=== PATIENT | female | born 1975 | race Caucasian/White ===

== ENCOUNTER 2020-06-01 13:35 | Emergency (ER) | payer BC, SELFPAY ==
[2020-06-01 14:42] VITALS: BP 142/83; PULSE 85; RESP 17; TEMP 37.3; O2SAT 95; BMI 46.3
[2020-06-01] MEDS: Lidocaine HCl 2%/Epi 1:100,000 20 ML VIAL INFILTRATI (15:36)
--- NOTE | 2020-06-01 16:28 | ED.SKABFB ---
HPI - Skin/Abscess/Foreign Bdy General Chief complaint: Skin/Abscess/Foreign Body <DUOGLAS Toscano - Last Filed: 06/01/20 16:46> Stated complaint: ABSCESS <DOUGLAS Toscano Last Filed: 06/01/20 16:46> Time Seen by Provider: 06/01/20 14:56 <DOUGLAS Toscano Last Filed: 06/01/20 16:46> Source: patient <DOUGLAS Toscano Last Filed: 06/01/20 16:46> Mode of arrival: ambulatory <DOUGLAS Toscano Last Filed: 06/01/20 16:46> History of Present Illness HPI narrative: 45-year-old female with a past medical history of ovarian cysts presenting to ED complaining of Bartholin's cyst to left labia x3 days. Reports noticed discomfort on , was seen at [facility] on Sunday night, prescribed Bactrim with little relief, reports continued drainage from area. Also reports swelling extending to buttock area. Reports low-grade temp a 100.4? the other night. Denies vaginal bleeding/discharge, abdominal pain, flank pain, chills <DOUGLAS Toscano - Last Filed: 06/01/20 16:46> MD complaint: abscess/boil <DOUGLAS Toscano Last Filed: 06/01/20 16:46> Onset (ago): day(s) <DOUGLAS Toscano - Last Filed: 06/01/20 16:46> Related Data Home medications: Home Medications Medication Instructions Recorded Confirmed buspirone 5 mg tablet 5 mg PO BID 04/24/20 04/24/20 ibuprofen 200 mg capsule 200 mg PO TID PRN cap 04/24/20 04/24/20 levonorgestrel 20 mcg/24 hours (6 INTRAUTERINE 04/24/20 04/24/20 yrs) 52 mg intrauterine device Previous Rx's Medication Instructions Recorded cephalexin [Keflex] 500 mg PO Q6H 7 Days #28 cap 06/01/20 <DOUGLAS Toscano Last Filed: 06/01/20 16:46> Allergies/Adverse reactions: Allergies Allergy/AdvReac Type Severity Reaction Status Date / Time No Known Allergies Allergy Verified 06/01/20 14:44 <DOUGLAS Toscano - Last Filed: 06/01/20 16:46> Review of Systems Review of Systems: Constitutional: No Weight loss, + Fever, No Chills Gastrointestinal: No Nausea, No Vomiting, No Diarrhea, No Constipation, No Abdominal pain Genitourinary: No Dysuria, No Flank Pain Musculoskeletal: No joint pain, No Myalgias, No Joint Swelling Skin: +Skin Lesions, No rash Neuro: No Weakness, No Numbness, No Paresthesias <DOUGLAS Toscano - Last Filed: 06/01/20 16:46> Yes all other systems are reviewed and are negative <DOUGLAS Toscano - Last Filed: 06/01/20 16:46> [facility] Past Medical History Attestation statement: The following information was validated with the patient. <DOUGLAS Toscano - Last Filed: 06/01/20 16:46> Medical History: Medical History (Updated 06/02/20 @ 00:21 by Dago Quezada) Cysts of both ovaries <DOUGLAS Toscano - Last Filed: 06/01/20 16:46> Family History Family History: Family History (Updated 04/24/20 @ 10:55 by Ruby Mckenzie [facility]) Father Diabetes CVD (cardiovascular disease) Stroke Mother No problems noted. Sister Anxiety Diabetes Maternal Uncle Hypertension <DOUGLAS Toscano - Last Filed: 06/01/20 16:46> Social History Social History: Social History Advance Directives: No Advance Directives Information Provided: No <DOUGLAS Toscano - Last Filed: 06/01/20 16:46> Physical Exam Vital Signs: Vital Signs: Last Vital Signs Temp 99.2 F 06/01/20 14:42 Pulse 85 06/01/20 14:42 Resp 17 06/01/20 14:42 BP 142/83 H 06/01/20 14:42 Pulse Ox 95 06/01/20 14:42 Body Mass Index 46.3 <DOUGLAS Toscano - Last Filed: 06/01/20 16:46> Vital Signs: Last Vital Signs Temp 99.2 F 06/01/20 14:42 Pulse 85 06/01/20 14:42 Resp 17 06/01/20 14:42 BP 142/83 H 06/01/20 14:42 Pulse Ox 95 06/01/20 14:42 Body Mass Index 46.3 <Miguel Ángel Rader MD - Last Filed: 06/04/20 02:40> Const: General: cooperative and healthy appearing <DOUGLAS Toscano - Last Filed: 06/01/20 16:46> Orientation/consciousness: patient oriented x3 <Lisbeth Xiong PA - Last Filed: 06/01/20 16:46> Limitations: no limitations <DOUGLAS Toscano - Last Filed: 06/01/20 16:46> HENMT: Head: Yes normal to inspection <DOUGLAS Toscano - Last Filed: 06/01/20 16:46> Ears: hearing grossly normal bilaterally <DOUGLAS Toscano - Last Filed: 06/01/20 16:46> General nose exam: Normal external nose present <DOUGLAS Toscano - Last Filed: 06/01/20 16:46> Face and sinus: Yes normal facial exam <DOUGLAS Toscano - Last Filed: 06/01/20 16:46> Eyes: General: appearance normal, both eyes and all related structures <DOUGLAS Toscano - Last Filed: 06/01/20 16:46> EOM: EOMs intact bilaterally <DOUGLAS Toscano - Last Filed: 06/01/20 16:46> Neck: Neck: Yes normal visual inspection <DOUGLAS Toscano - Last Filed: 06/01/20 16:46> Resp: Effort & Inspection: normal respiratory effort <DOUGLAS Toscano - Last Filed: 06/01/20 16:46> GI: Inspection: Yes normal to inspection <DOUGLAS Toscano - Last Filed: 06/01/20 16:46> : Other: + open/draining Bartholin cyst noted to left labia with mild surrounding cellulitis extending to left buttock/perineum. + indurated and fluctuant <DOUGLAS Toscano - Last Filed: 06/01/20 16:46> Skin: Rashes: no rashes <DOUGLAS Toscano - Last Filed: 06/01/20 16:46> Wounds: no wounds <DOUGLAS Toscano - Last Filed: 06/01/20 16:46> Neuro: General: patient oriented x3 <DOUGLAS Toscano - Last Filed: 06/01/20 16:46> Gait exam (Neuro): Normal gait present <DOUGLAS Toscano - Last Filed: 06/01/20 16:46> Extrem: General: Yes normal to inspection <DOUGLAS Toscano - Last Filed: 06/01/20 16:46> Course Course Course Narrative: --abscess I&D performed, Word catheter placed <DOUGLAS Toscano - Last Filed: 06/01/20 16:46> I have discussed the case and management with the GERMAINE <Miguel Ángel Rader MD - Last Filed: 06/04/20 02:40> Procedures Abscess I/D Site: bartholin's gland <DOUGLAS Toscano - Last Filed: 06/01/20 16:46> Side (if applicable): left <DOUGLAS Toscano - Last Filed: 06/01/20 16:46> Local Anesthetic: lidocaine 1% and with epi <DOUGLAS Toscano - Last Filed: 06/01/20 16:46> Amount of anesthesia used (mL): 1 <DOUGLAS Toscano - Last Filed: 06/01/20 16:46> Technique: other (Forceps used to open abscess brown) <DOUGLAS Toscano - Last Filed: 06/01/20 16:46> Sent for culture/gram staining?: No <DOUGLAS Toscano - Last Filed: 06/01/20 16:46> Irrigation: No <DOUGLAS Toscano - Last Filed: 06/01/20 16:46> Packing used?: Word catheter <DOUGLAS Toscano - Last Filed: 06/01/20 16:46> MDM - Skin/Abscess/Foreign Bdy MDM Narrative Medical decision making narrative: On exam low-grade temp 99.2?, Bartholin noted to be actively draining, need I&D. Patient only taken 2 days of Bactrim, will add Keflex regiment, insert Word catheter and have her follow-up with OBGYN <DOUGLAS Toscano - Last Filed: 06/01/20 16:46> Discharge Plan Discharge Clinical Impression: Abscess of Bartholin's gland <DOUGLAS Toscano - Last Filed: 06/01/20 16:46> Patient Disposition: Home, Self-Care <DOUGLAS Toscano - Last Filed: 06/01/20 16:46> Instructions: Bartholin Cyst (ED) <DOUGLAS Toscano - Last Filed: 06/01/20 16:46> Additional Instructions: Your abscess was drained today in the ED, a Word catheter was placed. Keep the catheter in place for 7-10 days until you see your OBGYN Continue taking previously prescribed antibiotic In addition start taking Keflex Keep area dry and clean If area begins to grow, drain pus, you have fever return to the ED <DOUGLAS Toscano - Last Filed: 06/01/20 16:46> Prescriptions: New cephalexin [Keflex] 500 mg capsule 500 mg PO Q6H 7 Days Qty: 28 RF: 0 No Action buspirone 5 mg tablet 5 mg PO BID RF: 0 Mirena 20 mcg/24 hours (5 yrs) 52 mg intrauterine device intrauterine RF: 0 ibuprofen 200 mg capsule 200 mg PO TID PRNRF: 0 <DOUGLAS Toscano - Last Filed: 06/01/20 16:46> Referrals: Ninoska Mohan MD [Physician] - 10 days (For Word catheter removal) <DOUGLAS Toscano - Last Filed: 06/01/20 16:46> Stand Alone Forms: Work/School Release <DOUGLAS Toscano - Last Filed: 06/01/20 16:46> Interventions: ED Discharge Assessment Last Done: 06/01/20 17:09 <DOUGLAS Toscano - Last Filed: 06/01/20 16:46> Discharge Date/Time: 06/01/20 17:10 <DOUGLAS Toscano - Last Filed: 06/01/20 16:46>
== END 2020-06-01 17:10 | disposition home or self-care (01) ==
PROVIDERS: Emergency Provider Emergency Medicine; PCP Internal Medicine
DX: N75.1 Abscess of Bartholin's gland (principal); Z79.899 Other long term (current) drug therapy
CPT/HCPCS: 56420; 99283; 99284

== ENCOUNTER 2020-07-29 10:59 | Outpatient (REF) | payer BC, SELFPAY ==
--- NOTE | 2020-07-29 17:27 | PFT_ITS ---
FLOWS: FEV1 114% of predicted at 3.33 L. FVC 101% of predicted at 3.69 L. FEV1 to FVC ratio of 0.90. No bronchodilator response. LUNG VOLUMES: Total lung capacity 101% of predicted at 5.10 L. Residual volume 85% of predicted at 1.44 L. Slow vital capacity 108% of predicted at 3.66 L. Expiratory reserve volume 27% of predicted at 0.31 L. Diffusion capacity is normal. IMPRESSION: No obstructive or restrictive ventilatory defect. No bronchodilator response. Decreased expiratory reserve volume suggests extrathoracic restriction likely secondary to abdominal obesity. Pasha Edgar MD AP/MODL / [id number]
== END 2020-07-29 11:00 | disposition home or self-care (01) ==
LOC: HO.RESP 10:59
PROVIDERS: PCP Internal Medicine; Visit Provider Internal Medicine
DX: G47.33 Obstructive sleep apnea (adult) (pediatric) (principal); R53.83 Other fatigue; R53.81 Other malaise; Z99.89 Dependence on other enabling machines and devices; Z86.19 Personal history of other infectious and parasitic diseases
CPT/HCPCS: 94060; 94727; 94729

== ENCOUNTER 2020-08-05 08:24 | Outpatient (REF) | payer BC, SELFPAY ==
[2020-08-05 11:12] LABS: MANUAL DIFF FLAG NO
[2020-08-05 11:21] LABS: Basophils Absolute Auto 0.1 X10*3/uL (0.0-0.2); Basophils Percent Auto 1.5 % (0-2); Eosinophils Absolute Auto 0.1 X10*3/uL (0.0-0.4); Eosinophils Percent Auto 2.3 % (0-4); Hematocrit 41.1 % (37-47); Hemoglobin 12.9 g/dl (12.0-16.0); Imm Gran Abs Auto 0.02 X10*3/uL (0.00-0.03); Imm Gran Pct Auto 0.4 % (0.0-0.4); Lymphocytes Absolute Auto 2.1 X10*3/uL (1.2-4.9); Lymphocytes Percent Auto 39.7 % (20-40); Mean Corpuscular HGB Conc 31.4 g/dl (31.0-35.0); Mean Corpuscular Hemoglobin 28.7 pg (27.0-33.0); Mean Corpuscular Volume 91.3 fL (80-98); Mean Platelet Volume 9.4 fL (9.4-12.3); Monocytes Absolute Auto 0.5 X10*3/uL (0.1-1.2); Monocytes Percent Auto 9.8 % (2-11); Neutrophils Absolute Auto 2.4 X10*3/uL (2.0-8.3); Neutrophils Percent Auto 46.3 % (45-73); Platelet Count 327 X10*3/uL (160-400); Red Cell Distribution Width 13.5 % (11.0-16.0); White Blood Count 5.2 X10*3/uL (4.8-10.8)
[2020-08-05 11:45] LABS: Alanine Aminotransferase 23 U/L (0-31); Albumin Level 4.1 g/dL (3.5-5.0); Alkaline Phosphatase 53 U/L (39-117); Anion Gap 10 (12-20); Aspartate Amino Transferase 19 U/L (5-31); Bilirubin Total 0.5 mg/dL (0.0-1.0); Blood Urea Nitrogen 17 mg/dL (9-16); Carbon Dioxide 30 mmol/L (22-29); Chloride 104 mmol/L (96-108); Estimated Glomerular Filt Rate > 60; Glucose Fasting 110 mg/dL (60-99); Potassium 4.3 mmol/l (3.3-5.1); Sodium 140 mmol/L (135-145); Total Protein 7.5 g/dL (6.5-8.0)
[2020-08-05 12:07] LABS: TSH reflex Free T4 0.95 mIU/mL (0.32-4.0); Vitamin D 25-OH Total 17.1 ng/mL (>30)
[2020-08-05 12:10] LABS: Erythrocyte Sedimentation Rate 22 MM/HR (0-20)
== END 2020-08-05 08:25 | disposition home or self-care (01) ==
LOC: HO.HMGCLDS 08:24
PROVIDERS: PCP Internal Medicine; Visit Provider Internal Medicine
DX: G47.33 Obstructive sleep apnea (adult) (pediatric) (principal); R53.81 Other malaise; Z99.89 Dependence on other enabling machines and devices; R06.81 Apnea, not elsewhere classified; R53.83 Other fatigue; Z86.19 Personal history of other infectious and parasitic diseases
CPT/HCPCS: 36415; 80053; 82306; 84443; 85025; 85652

== ENCOUNTER → 2020-11-02 10:10 | Outpatient (BNVA) | payer BC, SELFPAY | PROVIDERS: PCP Internal Medicine; Visit Provider Nurse Practitioner Family ==

== ENCOUNTER 2020-11-15 11:29 | Outpatient (REF) | payer BC, SELFPAY ==
--- NOTE | ~2020-11-15 | US_ITS ---
EXAMINATION: US VENOUS ULTRASOUND WITH DOPPLER LOWER EXTREMITY, LEFT CLINICAL INFORMATION: Pain lower extremity in region of knee/popliteal fossa. Assess for occult DVT. COMPARISON: None TECHNIQUE: Ultrasound of the deep veins is performed from the hip to the calf with compression sonography and color and pulse Doppler assessment. Spectral analysis with color-flow imaging is performed. FINDINGS: There is normal venous compression and respiratory variation and augmented flow. The visualized common femoral vein, superficial femoral vein, profunda femoral vein, popliteal vein, and the trifurcation region shows no evidence of deep venous thrombosis. No visible popliteal fossa cyst. No prepatellar bursal fluid. US/US venous duplex LE LT IMPRESSION: 1. No DVT demonstrated in the left lower extremity. 2. No visible popliteal fossa cyst.
== END 2020-11-15 11:30 | disposition home or self-care (01) ==
LOC: HO.HMGCX 11:29
PROVIDERS: PCP Internal Medicine; Visit Provider Internal Medicine
DX: I83.812 Varicose veins of left lower extremity with pain (principal); M79.606 Pain in leg, unspecified; M25.562 Pain in left knee
CPT/HCPCS: 93971

== ENCOUNTER 2021-01-03 14:10 | Outpatient (REF) | payer BC, SELFPAY ==
--- NOTE | ~2021-01-03 | MM_ITS ---
EXAMINATION: MM SCREENING DIGITAL BREAST TOMOSYNTHESIS, BILATERAL CLINICAL INFORMATION: Screening. Asymptomatic. The lifetime risk of breast cancer based on the Tyrer-Cuzick Model is 19%. COMPARISON: Outside mammography: 01/12/2017 ([facility]). TECHNIQUE: Digital breast tomosynthesis is performed in both the craniocaudal and mediolateral oblique views along with computer-aided detection (CAD). Synthesized 2D images are generated from the tomosynthesis. Additional left CC view is provided. FINDINGS: The breasts are almost entirely fatty (ACR BI-RADS breast composition Category a). Background stromal markings are similar to previous exam. There is no interval mass or architectural abnormality or abnormal calcifications. The axilla and skin contours are unremarkable. No significant changes. MM/MM tomosynthesis screening BI IMPRESSION: No mammographic evidence of malignancy. ASSESSMENT: BI-RADS 1: Negative RECOMMENDATION: Routine annual mammography screening. This patient's information was entered into a reminder system with a target due date for their next mammogram.
== END 2021-01-03 14:11 | disposition home or self-care (01) ==
LOC: HO.MAMMO 14:10
PROVIDERS: Visit Provider Internal Medicine
DX: Z12.31 Encounter for screening mammogram for malignant neoplasm of breast (principal)
CPT/HCPCS: 77063; 77067

== ENCOUNTER → 2021-01-18 10:20 | Outpatient (BNVA) | payer BC, SELFPAY | PROVIDERS: PCP Internal Medicine; Visit Provider Nurse Practitioner Family ==

== ENCOUNTER 2021-02-10 08:35 | Outpatient (REF) | payer BC, SELFPAY ==
--- NOTE | ~2021-02-10 | XR_ITS ---
EXAMINATION: XR KNEE, LEFT CLINICAL INFORMATION: Left knee pain COMPARISON: None TECHNIQUE: Four views of the left knee. FINDINGS: There is no evidence of acute fracture or dislocation of the left knee. No left knee effusion. There is significant narrowing of the medial joint space compartment with spurring seen within all compartments. Prominent spurring of the patellofemoral joint is present. XR/XR knee LT 4V IMPRESSION: Significant degenerative change of the medial joint space compartment and patellofemoral joint. No acute fracture or effusion.
--- NOTE | ~2021-02-10 | US_ITS ---
EXAMINATION: US ABDOMEN COMPLETE CLINICAL INFORMATION: Right upper quadrant pain. COMPARISON: None TECHNIQUE: Real-time imaging of the abdominal viscera. Technically difficult study secondary to body habitus. FINDINGS: PANCREAS: The head and body appear unremarkable without abnormal mass or peripancreatic inflammatory change. The tail was not visualized due to overlying bowel gas. ABDOMINAL AORTA: The proximal, mid, and distal segments are normal in caliber. INFERIOR VENA CAVA: Visualized portions are normal. LIVER: There is limited visualization due to large body habitus. There appears to be some increased echogenicity diffusely consistent with fatty infiltration. The liver contour is normal. No focal hepatic lesion. There is no intrahepatic biliary duct dilatation seen. GALLBLADDER: Within the fundus there is a region of echogenicity with some associated comet tail artifact consistent with adenomyomatosis. The gallbladder is physiologically distended without evidence of stones, sludge, wall thickening or pericholecystic fluid. COMMON BILE DUCT: Normal in caliber measuring 0.4 cm in diameter. RIGHT KIDNEY: Normal. No hydronephrosis. No renal calculi or focal parenchymal lesions. The kidney measures 11.8 cm in maximum dimension. LEFT KIDNEY: Normal. No hydronephrosis. No renal calculi or focal parenchymal lesions. The kidney measures 12.8 cm in maximum dimension. SPLEEN: Normal. The spleen measures 11.1 cm in maximum dimension. FREE FLUID: None. US/US abdomen complete IMPRESSION: Somewhat limited study due to large body habitus. Fatty infiltration of the liver. Focal adenomyomatosis.
[2021-02-10 11:52] LABS: Anion Gap 11 (12-20); Carbon Dioxide 26 mmol/L (22-29); Chloride 107 mmol/L (96-108); Glucose Fasting 103 mg/dL (60-99); Magnesium 2.2 mg/dL (1.6-2.6); Potassium 4.6 mmol/L (3.3-5.1); Sodium 139 mmol/L (135-145)
[2021-02-10 12:02] LABS: Estimated Average Glucose 117 mg/dL; Hemoglobin A1c % 5.7 %
[2021-02-10 12:10] LABS: Vitamin D 25-OH Total 28.9 ng/mL (>30)
[2021-02-11 12:11] LABS: Lyme Abs Screen <0.90 index
== END 2021-02-10 08:36 | disposition home or self-care (01) ==
LOC: HO.HMGCX 08:35
PROVIDERS: PCP Internal Medicine; Referring Provider Nurse Practitioner Family; Visit Provider Internal Medicine
DX: R10.11 Right upper quadrant pain (principal); E55.9 Vitamin D deficiency, unspecified; R25.2 Cramp and spasm; R53.81 Other malaise; R53.83 Other fatigue; R73.01 Impaired fasting glucose
CPT/HCPCS: 36415; 73564; 76700; 80051; 82306; 82947; 83036; 83735; 86617; 86618

== ENCOUNTER → 2021-02-21 09:56 | Outpatient (BNVA) | payer BC, SELFPAY | PROVIDERS: PCP Internal Medicine; Visit Provider Physician Assistant | DX: M17.12 Unilateral primary osteoarthritis, left knee (principal) | CPT/HCPCS: 20610; J1040 ==

== ENCOUNTER → 2021-04-19 08:09 | Outpatient (BNVA) | payer BC, SELFPAY | PROVIDERS: PCP Internal Medicine; Visit Provider Nurse Practitioner Family ==

== ENCOUNTER 2021-08-25 08:47 | Outpatient (REF) | payer BC, SELFPAY ==
--- NOTE | ~2021-08-25 | XR_ITS ---
EXAMINATION: XR CHEST CLINICAL INFORMATION: Apnea. COMPARISON: None TECHNIQUE: 2 views of the chest were obtained. FINDINGS: No significant abnormality is noted involving the heart, lungs, mediastinum, bony thorax or soft tissues. XR/XR chest 2V IMPRESSION: Unremarkable chest examination.
== END 2021-08-25 08:48 | disposition home or self-care (01) ==
LOC: HO.HMGCX 08:47
PROVIDERS: PCP Internal Medicine; Visit Provider Internal Medicine
DX: R06.81 Apnea, not elsewhere classified (principal)
CPT/HCPCS: 71046

== ENCOUNTER 2022-01-05 07:11 | Outpatient (REF) | payer BC, SELFPAY ==
--- NOTE | ~2022-01-05 | XR_ITS ---
EXAMINATION: XR KNEES, STANDING AP XR KNEE, RIGHT XR KNEE, LEFT CLINICAL INFORMATION: Knee pain COMPARISON: Radiographs left knee 02/10/2021 TECHNIQUE: Standing AP view of both knees is performed. Each knee is also imaged in lateral view and axial patella view. FINDINGS: Right: Normal bony mineralization. No fracture, dislocation, or joint effusion. No destructive process. Hoffa's fat pad appears normal. Mild narrowing medial compartment with small marginal osteophytes medial femoral condyle and medial tibial plateau. No erosive change or chondrocalcinosis. Mild degenerative changes lateral patellofemoral joint with borderline lateral tilting. No lateralization patella. Left: Normal bony mineralization. No fracture, dislocation, destructive process, or joint effusion. Hoffa's fat pad appears normal. Prominent osteoarthritic changes medial knee joint compartment with prominent joint narrowing and moderate osteophytes from the medial femoral condyle and medial lateral tibial plateau. Mild secondary genu varus. No visible erosive change or chondrocalcinosis. Probable mild degenerative change lateral patellofemoral joint with mild lateral tilting. No lateralization patella. XR/XR knee RT 2V IMPRESSION: Right: -Mild narrowing medial knee joint compartment. -No effusion. Left: -Prominent osteoarthritic changes medial compartment with secondary genu varus. -No effusion.
--- NOTE | ~2022-01-05 | XR_ITS ---
EXAMINATION: XR KNEES, STANDING AP XR KNEE, RIGHT XR KNEE, LEFT CLINICAL INFORMATION: Knee pain COMPARISON: Radiographs left knee 02/10/2021 TECHNIQUE: Standing AP view of both knees is performed. Each knee is also imaged in lateral view and axial patella view. FINDINGS: Right: Normal bony mineralization. No fracture, dislocation, or joint effusion. No destructive process. Hoffa's fat pad appears normal. Mild narrowing medial compartment with small marginal osteophytes medial femoral condyle and medial tibial plateau. No erosive change or chondrocalcinosis. Mild degenerative changes lateral patellofemoral joint with borderline lateral tilting. No lateralization patella. Left: Normal bony mineralization. No fracture, dislocation, destructive process, or joint effusion. Hoffa's fat pad appears normal. Prominent osteoarthritic changes medial knee joint compartment with prominent joint narrowing and moderate osteophytes from the medial femoral condyle and medial lateral tibial plateau. Mild secondary genu varus. No visible erosive change or chondrocalcinosis. Probable mild degenerative change lateral patellofemoral joint with mild lateral tilting. No lateralization patella. XR/XR knee LT 2V IMPRESSION: Right: -Mild narrowing medial knee joint compartment. -No effusion. Left: -Prominent osteoarthritic changes medial compartment with secondary genu varus. -No effusion.
--- NOTE | ~2022-01-05 | XR_ITS ---
EXAMINATION: XR KNEES, STANDING AP XR KNEE, RIGHT XR KNEE, LEFT CLINICAL INFORMATION: Knee pain COMPARISON: Radiographs left knee 02/10/2021 TECHNIQUE: Standing AP view of both knees is performed. Each knee is also imaged in lateral view and axial patella view. FINDINGS: Right: Normal bony mineralization. No fracture, dislocation, or joint effusion. No destructive process. Hoffa's fat pad appears normal. Mild narrowing medial compartment with small marginal osteophytes medial femoral condyle and medial tibial plateau. No erosive change or chondrocalcinosis. Mild degenerative changes lateral patellofemoral joint with borderline lateral tilting. No lateralization patella. Left: Normal bony mineralization. No fracture, dislocation, destructive process, or joint effusion. Hoffa's fat pad appears normal. Prominent osteoarthritic changes medial knee joint compartment with prominent joint narrowing and moderate osteophytes from the medial femoral condyle and medial lateral tibial plateau. Mild secondary genu varus. No visible erosive change or chondrocalcinosis. Probable mild degenerative change lateral patellofemoral joint with mild lateral tilting. No lateralization patella. XR/XR knee standing BI IMPRESSION: Right: -Mild narrowing medial knee joint compartment. -No effusion. Left: -Prominent osteoarthritic changes medial compartment with secondary genu varus. -No effusion.
== END 2022-01-05 07:12 | disposition home or self-care (01) ==
LOC: HO.HOSX 07:11
PROVIDERS: Visit Provider Physician Assistant
DX: M17.0 Bilateral primary osteoarthritis of knee (principal)
CPT/HCPCS: 20610; 73560; 73565; J1040

== ENCOUNTER 2022-01-09 15:31 | Outpatient (REF) | payer BC, SELFPAY ==
[2022-01-09 15:43] LABS: MANUAL DIFF FLAG NO
[2022-01-09 16:33] LABS: Basophils Absolute Auto 0.1 X10*3/uL (0.0-0.2); Basophils Percent Auto 0.9 % (0-2); Eosinophils Absolute Auto 0.1 X10*3/uL (0.0-0.4); Eosinophils Percent Auto 0.4 % (0-4); Hematocrit 43.8 % (37.0-47.0); Hemoglobin 14.3 g/dl (12.0-16.0); Imm Gran Abs Auto 0.05 X10*3/uL (0.00-0.03); Imm Gran Pct Auto 0.4 % (0.0-0.4); Lymphocytes Absolute Auto 2.8 X10*3/uL (1.2-4.9); Lymphocytes Percent Auto 24.2 % (20-40); Mean Corpuscular HGB Conc 32.6 g/dl (31.0-35.0); Mean Corpuscular Hemoglobin 28.8 pg (27.0-33.0); Mean Corpuscular Volume 88.3 fL (80.0-98.0); Mean Platelet Volume 9.2 fL (9.4-12.3); Monocytes Absolute Auto 0.8 X10*3/uL (0.1-1.2); Monocytes Percent Auto 7.2 % (2-11); Neutrophils Absolute Auto 7.7 x10*3/uL (2.0-8.3); Neutrophils Percent Auto 66.9 % (45-73); Platelet Count 388 X10*3/uL (160-400); Red Blood Count 4.96 X10*6/uL (4.20-5.50); Red Cell Distribution Width 13.4 % (11.0-16.0); White Blood Count 11.4 X10*3/uL (4.8-10.8)
[2022-01-09 16:59] LABS: Alanine Aminotransferase 18 U/L (0-31); Albumin Level 4.5 g/dL (3.5-5.0); Alkaline Phosphatase 80 U/L (39-117); Anion Gap 14 (12-20); Aspartate Amino Transferase 16 U/L (5-31); Bilirubin Total 0.4 mg/dL (0.0-1.0); Blood Urea Nitrogen 7 mg/dL (9-16); Calcium 9.6 mg/dL (8.4-10.2); Carbon Dioxide 28 mmol/L (22-29); Chloride 100 mmol/L (96-108); Cholesterol 182 mg/dL; Estimated Glomerular Filt Rate > 60; Glucose Fasting 98 mg/dL (60-99); HDL Cholesterol 53 mg/dL; LDL Cholesterol Calculated 106 mg/dl; Potassium 4.4 mmol/L (3.3-5.1); Sodium 138 mmol/L (135-145); Triglycerides 119 mg/dL
[2022-01-09 17:23] LABS: Vitamin D 25-OH Total 21.1 ng/mL (>30)
== END 2022-01-09 15:32 | disposition home or self-care (01) ==
LOC: HO.LAB 15:31
PROVIDERS: PCP Internal Medicine; Visit Provider Surgery
DX: Z00.01 Encounter for general adult medical examination with abnormal findings (principal); E55.9 Vitamin D deficiency, unspecified; R73.01 Impaired fasting glucose; E66.01 Morbid (severe) obesity due to excess calories; Z68.42 Body mass index [BMI] 45.0-49.9, adult; R10.9 Unspecified abdominal pain; D13.5 Benign neoplasm of extrahepatic bile ducts
CPT/HCPCS: 36415; 80048; 80053; 80061; 82306; 85025

== ENCOUNTER 2022-03-01 06:50 | Outpatient (REF) | payer BC, SELFPAY ==
[2022-03-01 12:03] LABS: ~Hepatitis B Surface Antibody NONREACTIVE (Nonreactive)
[2022-03-02 13:26] LABS: Rubella IgG Antibody 2.74 Index
[2022-03-06 12:46] LABS: TS Negative Control Passed; TS Panel A 0; TS Panel B 1; TS Positive Control Passed; TSpotTB Negative (Negative)
== END 2022-03-01 06:51 | disposition home or self-care (01) ==
LOC: HO.HMGCLDS 06:50
PROVIDERS: PCP Internal Medicine; Visit Provider Internal Medicine
DX: Z01.84 Encounter for antibody response examination (principal); Z11.1 Encounter for screening for respiratory tuberculosis
CPT/HCPCS: 36415; 86481; 86706; 86735; 86762; 86765; 86787

== ENCOUNTER → 2022-09-22 09:43 | Outpatient (BNVA) | payer OTHER, SELFPAY | PROVIDERS: PCP Internal Medicine; Visit Provider Physician Assistant | DX: M17.12 Unilateral primary osteoarthritis, left knee (principal) | CPT/HCPCS: 20610; J1040 ==

== ENCOUNTER 2022-11-30 09:30 | Outpatient (REF) | payer OTHER, SELFPAY ==
--- NOTE | ~2022-11-30 | MM_ITS ---
EXAMINATION: MM SCREENING DIGITAL BREAST TOMOSYNTHESIS, BILATERAL CLINICAL INFORMATION: Screening. Asymptomatic. The lifetime risk of breast cancer based on the Tyrer-Cuzick Model is 18%. COMPARISON: Mammography: 01/03/2021; outside mammography 01/12/2017 ([facility]). TECHNIQUE: Digital breast tomosynthesis is performed in both the craniocaudal and mediolateral oblique views along with computer-aided detection (CAD). Synthesized 2D images are generated from the tomosynthesis. Additional bilateral MLO views and right cleavage view are provided. FINDINGS: The breasts are almost entirely fatty (ACR BI-RADS breast composition Category a). There are no significant masses, abnormal calcifications, or other abnormalities. Background stromal markings are normal and there is no developing density or architectural abnormality. The axilla are unremarkable. No significant changes from prior studies. MM/MM tomosynthesis screening BI IMPRESSION: No mammographic evidence of malignancy. ASSESSMENT: BI-RADS 1: Negative RECOMMENDATION: Routine annual mammography screening. This patient's information was entered into a reminder system with a target due date for their next mammogram.
== END 2022-11-30 09:31 | disposition home or self-care (01) ==
LOC: HO.MAMMO 09:30
PROVIDERS: PCP Internal Medicine; Visit Provider Internal Medicine
DX: Z12.31 Encounter for screening mammogram for malignant neoplasm of breast (principal)
CPT/HCPCS: 77063; 77067

== ENCOUNTER 2023-11-28 11:09 | Outpatient (AMB) | payer OTHER, SELFPAY ==
[2023-11-28 11:34] VITALS: BP 130/72; PULSE 78; O2SAT 98; BMI 43.6
--- NOTE | 2023-11-28 11:34 | MHC.PC.OV ---
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 Accompanied by: Self / Same As Patient Allergies No Known Allergies Allergy (Verified 03/25/24 03:15) Medication List - Last Reconciled 11/28/23 by Carnia Beck MD diclofenac sodium 50 mg PO BID PRN levonorgestrel (Mirena) intrauterine Tobacco use date assessed: 11/28/23 Dental Screening Dental Screen Date: 11/28/23 Did you have a dental visit in the last 12 months?: Yes Did you have a dental problem in the last 6 months where you did not have access to dental care?: No Was dental information given to patient?: Patient has dentist HPI PE - see comments HPI Details 48-year-old lady with past medical history significant for obesity, pes planus,. Impaired Fasting glucose, obstructive sleep apnea, here today for physical exam. She has obstructive sleep apnea , currently on CPAP, requesting referral for follow-up. She is due for her screening mammogram this year, last done November 2022. She goes to [facility] for her routine Pap and pelvic exam, sees Dr. England who inserted her IUD in 2021 Due now for her colon cancer screening. Complains of recurrent pain across her lower back worse with bending or lifting anything heavy. Denies any urinary or stool incontinence, no numbness or tingling lower extremities, no weakness reported [facility], [facility] Medical History (Updated 03/03/24 @ 00:01 by Dago Quezada) Pes planus of both feet Adenomyomatosis of gallbladder Varicose veins of left lower extremity Impaired fasting glucose Vitamin D deficiency Obstructive sleep apnea treated with continuous positive airway pressure (CPAP) History of 2019 novel coronavirus disease (COVID-19) Cysts of both ovaries Surgical History No pertinent past surgical history Family History Father Diabetes CVD (cardiovascular disease) Stroke Mother Mental health disorder Sister Anxiety Diabetes Substance abuse Mental health disorder Maternal Uncle Hypertension Social History Housing: Apartment Alcohol intake: current Alcohol intake frequency: a few times a month Patient Tobacco Use Status: Never used Tobacco Tobacco use type: Cigarette Cigarettes Per Day: 1 Years Smoked: 0 e-Cigarette/Vaping Use: Never Used Current occupational status: employed 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 England at [facility]) Questionnaire PHQ-9 Over the last 2 weeks, how often have you been bothered by any of the following problems? 1. Little interest or pleasure in doing things: not at all 2. Feeling down, depressed, or hopeless: not at all 3. Trouble falling or staying asleep, or sleeping too much: not at all 4. Feeling tired or having little energy: not at all 5. Poor appetite or overeating: not at all 6. Feeling bad about yourself - or that you are a failure or have let yourself or your family down: not at all 7. Trouble concentrating on things, such as reading the newspaper or watching television: not at all 8. Moving or speaking so slowly that other people could have noticed. Or the opposite - being so fidgety or restless that you have been moving around a lot more than usual: not at all 9. Thoughts that you would be better off or of hurting yourself in some way: not at all Total score: 0 Depression Screening Interpretation: Negative Depression Screening Done: Yes 05262 - PHQ-9 Billing: Yes Source: Developed by Drs. Jarek Mclean, Cecile Caban, Usman Castillo and colleagues, with an educational marixa from [employer]. Thrive Questionnaire Date Thrive assessed: 11/28/23 I am a: Patient What is your living situation today?: I have a steady place to live Within the past 12 months, did the food you bought not last and you didn't have the money to get more?: Never true Within the past 12 months, did you worry whether your food would run out before you got money to buy more?: Never true Do you have trouble paying for medicines?: No Do you have trouble getting transportation to medical appointments?: No Do you have trouble paying your heating and electricity bill?: No Do you have trouble taking care of your child, family member or friend?: No Do you have trouble with day-to-day activities such as bathing, preparing meals, shopping, managing finances, etc.?: No Are you currently unemployed and looking for a job?: No Are you interested in more education?: No Please select the resources that you would like help with: None Currently or been in a relationship where the following occur: no concerns reported THRIVE Score: 0 AUDIT C Alcohol Use Questionnaire (AUDIT-C) 1. How often do you have a drink containing alcohol?: Monthly or less 2. How many drinks containing alcohol do you have on a typical day when you are drinking?: 1 or 2 3. How often do you have six or more drinks on one occasion?: Never Total Score: 1 Score Reviewed/Action Taken: Yes TAMIKA-7 AMB Questionnaire TAMIKA-7 Date TAMIKA - 7 assessed: 11/28/23 Feeling nervous, anxious, or on edge: 0 = Not at all Not being able to stop or control worryin = Not at all Worrying too much about different things: 0 = Not at all Trouble relaxin = Not at all Being so restless that it is hard to sit still: 0 = Not at all Becoming easily annoyed or irritable: 0 = Not at all Feeling afraid as if something awful might happen: 0 = Not at all Total TAMIKA-7 score (0-4 normal; 5-9 mild; 10-14 moderate; 15-21 severe): 0 Source: Developed by Drs. Jarek Mclean, Cecile Caban, Usman Castillo and colleagues, with an educational marixa from [employer]. TAMIKA-7 Assessment Billing TAMIKA-7 Assessment Tool: TAMIKA-7 Assessment 39039 Review of Systems Const Denies fatigue, Denies fever(s), Denies headache(s), Denies malaise and Denies poor appetite Eyes Reports no additional complaints ENT Denies dizziness, Denies headache(s), Denies nasal congestion, Denies nasal discharge, Denies post nasal drip, Denies sinus pressure and Denies sore throat Card Denies chest pain, Denies rapid heart rate and Denies irregular heart rhythm Resp Denies cough GI Reports no additional complaints Reports no additional complaints Musc Reports as per HPI, Reports arthralgias (Occasional knees) and Reports stiffness Skin/Breast Denies rash Neuro Reports no additional complaints, Denies dizziness and Denies headache(s) Psych Reports no additional complaints Endo Denies fatigue Elvis/Lymph Reports no additional complaints Aller/Immun Reports no additional complaints Physical exam (Primary Care) Vital Signs: Last Vital Signs Pulse 78 11/28/23 11:34 BP 130/72 11/28/23 11:34 Pulse Ox 98 11/28/23 11:34 Oxygen Delivery Method Room Air 11/28/23 11:34 BMI result Body Mass Index 43.6 Tobacco/Smoking Status: Tobacco use Status Tobacco use date assessed 11/28/23 11/28/23 11:39 Patient Tobacco Use Status Never used Tobacco 11/28/23 11:39 Tobacco use type Cigarette 11/28/23 11:39 e-Cigarette/Vaping Use Never Used 11/28/23 11:39 PHQ-9: PHQ-9 Score PHQ-9: Total score 0 11/28/23 11:51 Depression Screening Interpretation: Negative Thrive Assessment: Date of Thrive Assessment Date Thrive assessed 11/28/23 11/28/23 11:39 Currently or been in a relationship where the following occur: no concerns reported Const General: cooperative, comfortable, no acute distress, alert and Physically active Nutritional Appearance: obese morbidly obese Orientation/consciousness: patient oriented x3 HENMT Head: Yes normocephalic Ears: hearing grossly normal bilaterally, TM's normal bilaterally and EAC's normal General nose exam: Normal external nose present and No nasal discharge present Face and sinus: Yes face symmetric Mouth: Normal oral and palatal mucosa present, oropharynx normal and moist mucous membranes abnormal Eyes General: appearance normal, both eyes and all related structures Neck Other: Supple, no lymphadenopathy, thyroid gland nonpalpable Chest Breast/axilla palpation: normal palpation of the breasts and normal palpation of the axillae Resp Auscultation: clear to auscultation bilaterally Cardio Other: S1-S2 present regular rate and rhythm GI Other: Normal bowel sounds obese, soft, slight discomfort on palpation over right upper quadrant, with no rebound or guarding Back/Spine/Pelvis Thoracic/Lumbar Spine: straight leg raise negative bilaterally and paraspinal muscle tenderness bilaterally in the mid lumbar Skin General skin exam: no rashes or lesions noted Neuro General: patient oriented x3, gait normal, tone normal, moves all extremities, Normal light touch and pain sensation, no focal motor deficits, CN's II-XI intact bilaterally and normal sensation to monofilament Extrem Other: crepitus right knee, flat feet General: Yes no joint enlargement, Yes no pedal edema and Yes normal gait Psych Appearance: grossly normal Mental Status: mental status grossly normal Speech and movement: Normal speech and movement present Affect: normal affect Assessment and Plan Assessment & Plan (1) Annual visit for general adult medical examination with abnormal findings: Code(s): Z00.01 - Encounter for general adult medical examination with abnormal findings Plan: Will check appropriate labs. Recommended dental visit every 6 months and regular eye exams, at least every 2 years. Take adequate calcium in diet and vitamin-D 3 at 2000 IU per cap once a day, in addition to weight-bearing exercises to help maintain good muscle tone and weight control. Instructed to do self-breast exam, and recommended to get yearly mammogram, starting at age 40. Immunization information provided: Yearly flu vaccine, shingles vaccine starting at age 50, at age 65 to start getting Prevnar 13 followed 1 year later by Pneumovax 23. Colonoscopy (2) Low Back Pain: Code(s): M54.50 - Low back pain, unspecified Plan: X-ray lumbar spine ordered, prescription sent for diclofenac sodium 50 mg per tablet to take 1 tab twice a day only as needed for pain, take it always with food. To clinic if no improvement of symptoms (3) Encounter for screening for malignant neoplasm of colon: Code(s): Z12.11 - Encounter for screening for malignant neoplasm of colon Plan: Referred to GI Clinic for initial colonoscopy screening (4) Obstructive sleep apnea treated with continuous positive airway pressure (CPAP): Code(s): G47.33 - Obstructive sleep apnea (adult) (pediatric); Z99.89 - Dependence on other enabling machines and devices Plan: Referred for follow-up to [facility] [place] [facility] (5) Vitamin D deficiency: Code(s): E55.9 - Vitamin D deficiency, unspecified Plan: Will check vitamin-D level (6) Morbid obesity with BMI of 45.0-49.9, adult: Code(s): E66.01 - Morbid (severe) obesity due to excess calories; Z68.42 - Body mass index [BMI] 45.0-49.9, adult Plan: Your BMI is above the ideal range. I deal BMI is between 18.5- 24. Recommended Mediterranean diet, which is a healthy diet that helps limit food high in fat, sugar, and calories. Eat slowly, pay attention to portion sizes, plan your meals ahead of time, start regular physical activity, at least 150 minutes of moderate intensity exercise, or 90 minutes per week of vigorous exercise. Keeping a food diary, tracking what you eat and your physical activity can help assess what improvements you can make. There are many health problems associated with being overweight/obese, so it is important to improve your diet and exercise. There are medications and surgical options available, but Lifestyle changes are the 1st step. (7) Impaired fasting glucose: Code(s): R73.01 - Impaired fasting glucose Plan: Your previous fasting blood sugars were elevated above 100 mg/dL. Impaired glucose metabolism increases the risk for developing diabetes mellitus type 2, as well as heart attack and stroke later on. Lifestyle changes that promotes weight loss, healthy eating habits, and regular exercise are important, and can prevent the progression to diabetes Orders: Orders Vitamin D 25-OH Total 11/28/23 E66.01 - Morbid (severe) obesity due to excess calories, Z68.42 - Body mass index [BMI] 45.0-49.9, adult, E55.9 - Vitamin D deficiency, unspecified, G47.33 - Obstructive sleep apnea (adult) (pediatric), Z99.89 - Dependence on other enabling machines and devices, R73.01 - Impaired fasting glucose, Z00.01 - Encounter for general adult medical examination with abnormal findings Basic Metabolic Panel Fasting 11/28/23 E66.01 - Morbid (severe) obesity due to excess calories, Z68.42 - Body mass index [BMI] 45.0-49.9, adult, E55.9 - Vitamin D deficiency, unspecified, G47.33 - Obstructive sleep apnea (adult) (pediatric), Z99.89 - Dependence on other enabling machines and devices, R73.01 - Impaired fasting glucose, Z00.01 - Encounter for general adult medical examination with abnormal findings Aspartate Amino Transferase 11/28/23 E66.01 - Morbid (severe) obesity due to excess calories, Z68.42 - Body mass index [BMI] 45.0-49.9, adult, E55.9 - Vitamin D deficiency, unspecified, G47.33 - Obstructive sleep apnea (adult) (pediatric), Z99.89 - Dependence on other enabling machines and devices, R73.01 - Impaired fasting glucose, Z00.01 - Encounter for general adult medical examination with abnormal findings Alanine Aminotransferase 11/28/23 E66.01 - Morbid (severe) obesity due to excess calories, Z68.42 - Body mass index [BMI] 45.0-49.9, adult, E55.9 - Vitamin D deficiency, unspecified, G47.33 - Obstructive sleep apnea (adult) (pediatric), Z99.89 - Dependence on other enabling machines and devices, R73.01 - Impaired fasting glucose, Z00.01 - Encounter for general adult medical examination with abnormal findings XR lumbar spine 6V w bending 11/28/23 M54.50 - Low back pain, unspecified Complete Blood Count Auto Diff 11/28/23 E66.01 - Morbid (severe) obesity due to excess calories, Z68.42 - Body mass index [BMI] 45.0-49.9, adult, E55.9 - Vitamin D deficiency, unspecified, G47.33 - Obstructive sleep apnea (adult) (pediatric), Z99.89 - Dependence on other enabling machines and devices, R73.01 - Impaired fasting glucose, Z00.01 - Encounter for general adult medical examination with abnormal findings Lipid Panel 11/28/23 E66.01 - Morbid (severe) obesity due to excess calories, Z68.42 - Body mass index [BMI] 45.0-49.9, adult, E55.9 - Vitamin D deficiency, unspecified, G47.33 - Obstructive sleep apnea (adult) (pediatric), Z99.89 - Dependence on other enabling machines and devices, R73.01 - Impaired fasting glucose, Z00.01 - Encounter for general adult medical examination with abnormal findings Referrals Gastroenterology Referral Z12.11 - Encounter for screening for malignant neoplasm of colon Sleep Medicine Referral G47.33 - Obstructive sleep apnea (adult) (pediatric), Z99.89 - Dependence on other enabling machines and devices Medications: Refilled diclofenac sodium 50 mg PO BID PRN 60 tabs 0RF pain diclofenac sodium 50 mg PO BID PRN 60 tabs 0RF pain Coding Level of Care Code Est Pt Prev Care 40-64y(96154) Diagnoses Annual visit for general adult medical examination with abnormal findings Z00.01 Low Back Pain M54.50 Encounter for screening for malignant neoplasm of colon Z12.11 Obstructive sleep apnea treated with continuous positive airway pressure (CPAP) G47.33; Z99.89 Vitamin D deficiency E55.9 Morbid obesity with BMI of 45.0-49.9, adult E66.01; Z68.42 Impaired fasting glucose R73.01 Additional Codes TAMIKA-7 Assessment Billing - TAMIKA-7 Assessment Tool: TAMIKA-7 Assessment [id number] ([id number])
== END 2023-11-28 14:00 | disposition home or self-care (01) ==
PROVIDERS: Visit Provider Internal Medicine
DX: Z00.01 Encounter for general adult medical examination with abnormal findings (principal); M54.50 Low back pain, unspecified; Z12.11 Encounter for screening for malignant neoplasm of colon; G47.33 Obstructive sleep apnea (adult) (pediatric); Z99.89 Dependence on other enabling machines and devices; E55.9 Vitamin D deficiency, unspecified; E66.01 Morbid (severe) obesity due to excess calories; Z68.42 Body mass index [BMI] 45.0-49.9, adult; R73.01 Impaired fasting glucose
CPT/HCPCS: 99499

== ENCOUNTER 2024-02-26 15:35 | Outpatient (AMB) | payer OTHER, SELFPAY ==
--- NOTE | 2024-02-26 15:40 | MHC.OFFVIS ---
Vital Signs 02/26/24 15:41 Height 5 ft 4 in Weight 296 lb BMI 50.8 Intake Visit Reasons: INP-ADRYAN-(Insurance Needed) Intake Note: Patient presents for sleep apnea. Candida been diagnosed and have a machine I just need to update sleep study Allergies No Known Allergies Allergy (Verified 02/26/24 15:43) Medication List - Last Reconciled 02/26/24 by FREDERICK Fontanez acetaminophen ER (Tylenol Arthritis Pain) 650 mg PO Q12H diclofenac sodium 50 mg PO BID PRN levonorgestrel (Mirena) intrauterine HPI Comments Details: 49-yr-old female presents for f/u of severe sleep apnea. Previous HST (prior to 2020) revealed AHI 127.3/hr with O2 renzo 68%. She was never able to undergo in-lab PAP titration study as previous insurance denied request. Patient reports she has been complaint w/ her APAP. She is not sure if the air pressure is correct. She still snores when using her mask. She always feels tired. Can easily fall asleep when inactive. She has strategies to reduce sleepiness while driving- naps, breaks, avoids driving at night. 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 usually tolerates working nights well, unless assigned to one-to-one patinet sitter, as she can become very sleepy. Hypersomnolence questionnaire: Have you ever had episodes of sudden weakness? Sometimes her phone may drop out of her hand- not associated with strong emotion. Have you ever had episodes of sudden weakness associated with strong emotions? Denies. Sleep hygiene questionnaire: What is your usual sleep routine? Workday routine- Usual bedtime is at 8:30am through 3-3:30pm. Usual days off routine- 12am through 7-8am. Do you take naps? Unintentional naps and can nap all day. Is your sleep environment cool, dark, and quiet? Yes Do you exercise? She was swimming. Does some hiking, outdoor biking. Has been having some back issues and leg spams- seeing a chiropractor. There is an order in place for XR lumbar spine. Do you take caffeine or other stimulants? Celius energy drink. Do you use electronics in bed? 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 Report Usage 01/26/2024 - 02/24/2024 Usage days 28/30 days (93%) Usage days >= 4 hours 24 days (80%) Usage days < 4 hours 4 days (13%) Average usage (days used) 5 hours 21 minutes Median usage (days used) 4 hours 56 minutes Total used hours (value since last reset - 02/24/2024) 5,856 hours AirSense 10 AutoSet Serial number [id number] Mode AutoSet Min Pressure 5 cmH2O Max Pressure 20 cmH2O EPR Fulltime EPR level 3 Response Standard Therapy Pressure Maximum Pressure: 15.6 cmH2O Leaks - L/min Median: 0.2 95th percentile: 4.0 Maximum: 49.8 Residual events per hour AI: 2.9 HI: 0.2 AHI: 3.1 PFSH Medical History (Updated 02/26/24 @ 16:25 by FREDERICK Fontanez) Pes planus of both feet Adenomyomatosis of gallbladder Varicose veins of left lower extremity Impaired fasting glucose Vitamin D deficiency Obstructive sleep apnea treated with continuous positive airway pressure (CPAP) History of 2019 novel coronavirus disease (COVID-19) Cysts of both ovaries Surgical History No pertinent past surgical history Family History Father Diabetes CVD (cardiovascular disease) Stroke Mother Mental health disorder Sister Anxiety Diabetes Substance abuse Mental health disorder Maternal Uncle Hypertension Social History Housing: Apartment Alcohol intake: current Alcohol intake frequency: a few times a month Patient Tobacco Use Status: Never used Tobacco Tobacco use type: Cigarette Cigarettes Per Day: 1 Years Smoked: 0 e-Cigarette/Vaping Use: Never Used Current occupational status: employed 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 @ [employer] Cognitive needs: No Hearing needs: No Vision needs: No Physical Exam Vital Signs: BMI result Body Mass Index 50.8 Const General: no acute distress Orientation/consciousness: patient oriented x3 HEENT Other: Mallampati stage Resp Effort & Inspection: normal respiratory effort and able to speak in complete sentences Cardio Rate: regular rate Rhythm: regular rhythm Neuro General: patient oriented x3 Psych Mental Status: mental status grossly normal Speech and movement: Clear speech present Attitude: cooperative Assessment & Plan Assessment & Plan (1) Severe obstructive sleep apnea: Code(s): G47.33 - Obstructive sleep apnea (adult) (pediatric) Category: Medical (2) Muscle spasm: Code(s): M62.838 - Other muscle spasm Category: Medical (3) Fatigue: Code(s): R53.83 - Other fatigue Category: Medical (4) Morbid obesity with BMI of 45.0-49.9, adult: Code(s): E66.01 - Morbid (severe) obesity due to excess calories; Z68.42 - Body mass index [BMI] 45.0-49.9, adult Category: Medical (5) Excessive daytime sleepiness: Code(s): G47.19 - Other hypersomnia Category: Medical (6) Snoring: Code(s): R06.83 - Snoring Category: Medical Plan Pt advised to undergo in-lab sleep study to assess status of sleep apnea and nocturnal hypoxemia- as pt continues to have marked excessive daytime sleepiness despite optimal use of APAP. Information shared on optimizing sleep hygiene in setting of shift work. In the meantime, continue APAP nightly > 4 hours. Will check labs for etiologies of hypersomnia, muscle spasms. Orders: Orders Vitamin B12 and Folate Today E66.01 - Morbid (severe) obesity due to excess calories, M62.838 - Other muscle spasm, R53.83 - Other fatigue, Z68.42 - Body mass index [BMI] 45.0-49.9, adult Vitamin B2 (Riboflavin) Today E66.01 - Morbid (severe) obesity due to excess calories, M62.838 - Other muscle spasm, R53.83 - Other fatigue, Z68.42 - Body mass index [BMI] 45.0-49.9, adult Vitamin B5 (Pantothenic Acid) Today E66.01 - Morbid (severe) obesity due to excess calories, M62.838 - Other muscle spasm, R53.83 - Other fatigue, Z68.42 - Body mass index [BMI] 45.0-49.9, adult Vitamin C Today E66.01 - Morbid (severe) obesity due to excess calories, M62.838 - Other muscle spasm, R53.83 - Other fatigue, Z68.42 - Body mass index [BMI] 45.0-49.9, adult Magnesium Today E66.01 - Morbid (severe) obesity due to excess calories, M62.838 - Other muscle spasm, R53.83 - Other fatigue, Z68.42 - Body mass index [BMI] 45.0-49.9, adult Creatine Kinase Total Today E66.01 - Morbid (severe) obesity due to excess calories, M62.838 - Other muscle spasm, R53.83 - Other fatigue, Z68.42 - Body mass index [BMI] 45.0-49.9, adult Comprehensive Met. Panel Today E66.01 - Morbid (severe) obesity due to excess calories, M62.838 - Other muscle spasm, R53.83 - Other fatigue, Z68.42 - Body mass index [BMI] 45.0-49.9, adult TSH reflex Free T4 Today E66.01 - Morbid (severe) obesity due to excess calories, M62.838 - Other muscle spasm, R53.83 - Other fatigue, Z68.42 - Body mass index [BMI] 45.0-49.9, adult Vitamin A Today E66.01 - Morbid (severe) obesity due to excess calories, M62.838 - Other muscle spasm, R53.83 - Other fatigue, Z68.42 - Body mass index [BMI] 45.0-49.9, adult Vitamin B1 Today E66.01 - Morbid (severe) obesity due to excess calories, M62.838 - Other muscle spasm, R53.83 - Other fatigue, Z68.42 - Body mass index [BMI] 45.0-49.9, adult Vitamin B3 (Niacin) Today E66.01 - Morbid (severe) obesity due to excess calories, M62.838 - Other muscle spasm, R53.83 - Other fatigue, Z68.42 - Body mass index [BMI] 45.0-49.9, adult Vitamin B6 Today E66.01 - Morbid (severe) obesity due to excess calories, M62.838 - Other muscle spasm, R53.83 - Other fatigue, Z68.42 - Body mass index [BMI] 45.0-49.9, adult Vitamin E Today E66.01 - Morbid (severe) obesity due to excess calories, M62.838 - Other muscle spasm, R53.83 - Other fatigue, Z68.42 - Body mass index [BMI] 45.0-49.9, adult Vitamin K1 Today E66.01 - Morbid (severe) obesity due to excess calories, M62.838 - Other muscle spasm, R53.83 - Other fatigue, Z68.42 - Body mass index [BMI] 45.0-49.9, adult Zinc Today E66.01 - Morbid (severe) obesity due to excess calories, M62.838 - Other muscle spasm, R53.83 - Other fatigue, Z68.42 - Body mass index [BMI] 45.0-49.9, adult RT PSG in-lab sleep study Today E66.01 - Morbid (severe) obesity due to excess calories, G47.19 - Other hypersomnia, G47.33 - Obstructive sleep apnea (adult) (pediatric), R06.83 - Snoring, Z68.42 - Body mass index [BMI] 45.0-49.9, adult Scribe Plan - Not visible on output: Pt is advised to undergo sleep study to assess for sleep apnea: Will f/u with pt after study to discuss results and appropriate treatment options. Pt to call with any worsening concerns or questions. Coding Level of Care Code Est Pt Level 4 (37600) Diagnoses Severe obstructive sleep apnea G47.33 Muscle spasm M62.838 Fatigue R53.83 Morbid obesity with BMI of 45.0-49.9, adult E66.01; Z68.42 Excessive daytime sleepiness G47.19 Snoring R06.83 [place] Sleepiness Scale Questions Sitting and reading: high chance of dozing Watching TV: high chance of dozing Sitting inactive in a theater, movie etc.: high chance of dozing As a passenger in a car for an hour without break: high chance of dozing Lying down in the afternoon when circumstances permit: high chance of dozing Sitting and talking to someone: moderate chance of dozing Sitting quietly after lunch without alcohol: high chance of dozing In a car, while stopped for a few minutes in the traffic: would never doze ESS < 10: normal, ESS > 12: pathologic: 20
[2024-02-26 15:41] VITALS: BMI 50.8
== END 2024-02-26 16:36 | disposition home or self-care (01) ==
PROVIDERS: PCP Internal Medicine; Visit Provider Nurse Practitioner Family
DX: G47.33 Obstructive sleep apnea (adult) (pediatric) (principal); M62.838 Other muscle spasm; R53.83 Other fatigue; E66.01 Morbid (severe) obesity due to excess calories; Z68.42 Body mass index [BMI] 45.0-49.9, adult; G47.19 Other hypersomnia; R06.83 Snoring
CPT/HCPCS: 99214

== ENCOUNTER → 2024-02-26 15:35 | Outpatient (BNVA) | payer OTHER, SELFPAY | PROVIDERS: PCP Internal Medicine; Visit Provider Nurse Practitioner Family ==

== ENCOUNTER 2024-02-29 07:22 | Outpatient (REF) | payer OTHER, SELFPAY ==
[2024-02-29 07:48] LABS: MANUAL DIFF FLAG NO
[2024-02-29 08:01] LABS: Basophils Absolute Auto 0.1 X10*3/uL (0.0-0.2); Basophils Percent Auto 1.1 % (0-2); Eosinophils Absolute Auto 0.1 X10*3/uL (0.0-0.4); Eosinophils Percent Auto 1.9 % (0-4); Hematocrit 39.9 % (37.0-47.0); Imm Gran Abs Auto 0.02 X10*3/uL (0.00-0.03); Imm Gran Pct Auto 0.3 % (0.0-0.4); Lymphocytes Percent Auto 40.6 % (20-40); Mean Corpuscular HGB Conc 32.6 g/dl (31.0-35.0); Mean Corpuscular Hemoglobin 29.2 pg (27.0-33.0); Mean Corpuscular Volume 89.7 fL (80.0-98.0); Monocytes Absolute Auto 0.6 X10*3/uL (0.1-1.2); Monocytes Percent Auto 7.7 % (2-11); Neutrophils Absolute Auto 3.6 x10*3/uL (2.0-8.3); Neutrophils Percent Auto 48.4 % (45-73); Platelet Count 330 X10*3/uL (160-400); Red Blood Count 4.45 X10*6/uL (4.20-5.50); Red Cell Distribution Width 13.9 % (11.0-16.0); White Blood Count 7.4 X10*3/uL (4.8-10.8)
[2024-02-29 08:39] LABS: Alanine Aminotransferase 46 U/L (0-31); Albumin Level 4.4 g/dL (3.5-5.0); Alkaline Phosphatase 77 U/L (39-117); Anion Gap 11 (12-20); Aspartate Amino Transferase 31 U/L (5-31); Bilirubin Total 0.4 mg/dL (0.0-1.0); Blood Urea Nitrogen 25 mg/dL (9-16); Calcium 9.9 mg/dL (8.4-10.2); Carbon Dioxide 29 mmol/L (22-29); Chloride 105 mmol/L (96-108); Cholesterol 200 mg/dL (<200); Estimated Glomerular Filt Rate > 60; Glucose Fasting 110 mg/dL (60-99); Glucose Random 110 mg/dL (60-115); HDL Cholesterol 46 mg/dL (>40); LDL Cholesterol Calculated 132 mg/dL (<100); Magnesium 2.2 mg/dL (1.6-2.6); Sodium 141 mmol/L (135-145); Total Protein 8.2 g/dL (6.5-8.0); Triglycerides 110 mg/dL (<150)
[2024-02-29 08:51] LABS: TSH reflex Free T4 2.51 uIU/mL (0.32-4.0)
[2024-02-29 08:55] LABS: Vitamin D 25-OH Total 24.3 ng/mL (>30)
[2024-02-29 09:08] LABS: Folate 10.2 ng/mL (> or = 4.0); Vitamin B12 599 pg/mL (200-900)
[2024-03-04 01:14] LABS: Zinc 67 mcg/dL (60-130)
[2024-03-04 19:08] LABS: Nicotinamide <20 ng/mL (see note); Vit B3 - Nicotinic Acid <20 ng/mL (see note)
[2024-03-05 16:19] LABS: Vitamin B6 46.6 ng/mL (2.1-21.7)
[2024-03-05 18:28] LABS: Vitamin K1 >2500 pg/mL (130-1500)
[2024-03-05 23:28] LABS: Alpha-Tocopherol 13.4 mg/L (5.7-19.9); Beta-Gamma Tocopherol 1.5 mg/L (<=4.3)
[2024-03-06 02:23] LABS: Vitamin A 62 mcg/dL (38-98)
[2024-03-06 17:43] LABS: Vitamin B5 (Pantothenic Acid) 85 ng/mL (<275)
[2024-03-07 11:34] LABS: Vitamin C 1.2 mg/dL (0.3-2.7)
[2024-03-08 09:25] LABS: Vitamin B1 20 nmol/L (8-30)
== END 2024-02-29 07:23 | disposition home or self-care (01) ==
LOC: HO.LAB 07:22
PROVIDERS: Absent Provider Nurse Practitioner Family; PCP Internal Medicine; Visit Provider Internal Medicine
DX: Z00.01 Encounter for general adult medical examination with abnormal findings (principal); E66.01 Morbid (severe) obesity due to excess calories; Z68.42 Body mass index [BMI] 45.0-49.9, adult; E55.9 Vitamin D deficiency, unspecified; G47.33 Obstructive sleep apnea (adult) (pediatric); Z99.89 Dependence on other enabling machines and devices; R73.01 Impaired fasting glucose; M62.838 Other muscle spasm; R53.83 Other fatigue
CPT/HCPCS: 36415; 80048; 80053; 80061; 82180; 82306; 82550; 82607; 82746; 83735; 84207; 84252; 84425; 84443; 84446; 84590; 84591; 84597; 84630; 85025

== ENCOUNTER 2024-03-02 17:46 | Emergency (ER) | payer OTHER, SELFPAY ==
--- NOTE | ~2024-03-02 | XR_ITS ---
EXAMINATION: XR lumbar spine 2-3V CLINICAL INFORMATION: Reason for Exam severe R sided pain COMPARISON: None TECHNIQUE: 3 views of the lumbar spine FINDINGS: 5 nonrib-bearing lumbar-type vertebral bodies. Vertebral body heights are maintained. Grade 1 anterolisthesis of L5 on S1. Mild multilevel degenerative disc disease with loss of disc space height, facet arthropathy and disc osteophyte complexes. This is worst at L5/S1. Paravertebral soft tissues are unremarkable. XR/XR lumbar spine 2-3V IMPRESSION: Mild spondylosis of the lumbar spine, as above detailed. Grade 1 anterolisthesis of L5 on S1.
[2024-03-02 17:56] VITALS: BP 204/113; PULSE 114; RESP 20; TEMP 36.6; O2SAT 100; BMI 45.2
--- NOTE | 2024-03-02 17:58 | ED_ITS ---
HPI - General Adult General Chief complaint: Back Pain/Injury Stated complaint: back pain Time Seen by Provider: 03/02/24 19:52 Source: patient, RN notes reviewed and old records reviewed Mode of arrival: ambulatory Limitations: no limitations History of Present Illness ED Provider: Oksana BROWN narrative: 49-year-old female with past medical history significant for sleep apnea, osteoarthritis, back pain, morbid obesity presents for evaluation of right lower back pain. Patient reports that she has begun seeing a chiropractor for lower back pain. She was told to do strengthening exercises at home She states that today after ?turning over in bed she had a sudden onset of severe right lower back pain The pain radiates around to her right lower abdomen as well as her right leg. She has not had any spinal adjustments at all yet She denies any falls or trauma Denies any numbness, tingling, weakness No urinary incontinence or retention She reports the pain is 10 Related Data Home Medications ?Medication ?Instructions ?Recorded ?Confirmed levonorgestrel 21 mcg/24 hr (up to intrauterine 11/14/21 02/26/24 8 years) 52 mg intrauterine device (Mirena) acetaminophen 650 mg 650 mg PO Q12H 02/26/24 02/26/24 tablet,extended release (Tylenol Arthritis Pain) Previous Rx's ?Medication ?Instructions ?Recorded diclofenac sodium 50 mg 50 mg PO BID PRN pain #60 tabs 01/24/24 tablet,delayed release cyclobenzaprine 10 mg tablet 10 mg PO TID PRN muscle spasm #12 03/02/24 tabs dexamethasone 4 mg tablet 4 mg PO BID #6 tabs 03/02/24 oxycodone 5 mg tablet 5 mg PO Q6H PRN severe pain (scale 03/02/24 score 7-10) #10 tabs Allergies Allergy/AdvReac Type Severity Reaction Status Date / Time No Known Allergies Allergy Verified 03/02/24 18:01 Review of Systems Constitutional: Constitutional: Denies body ache(s), Denies chills, Denies fever(s) and Denies frequent falls Eyes: Eyes: Denies blurry vision ENT: Denies vertigo and Denies dizziness Cardiovascular: Cardiovascular: Denies chest pain and Denies dyspnea Respiratory: Respiratory: Denies cough and Denies dyspnea Gastrointestinal: Gastrointestinal: Denies abdominal pain Genitourinary: Genitourinary: Denies dysuria Musculoskeletal: Musculoskeletal: Reports back pain Integumentary/Breasts: Skin/Breast: Denies rash Neurologic: Denies vertigo, Denies dizziness and Denies frequent falls Psychiatric: Psychiatric: Denies anxiety and Denies suicidal ideation [facility] Past Medical History Medical History (Updated 03/02/24 @ 20:21 by Quang Gandhi) Pes planus of both feet Adenomyomatosis of gallbladder Varicose veins of left lower extremity Impaired fasting glucose Vitamin D deficiency Obstructive sleep apnea treated with continuous positive airway pressure (CPAP) History of 2019 novel coronavirus disease (COVID-19) Cysts of both ovaries Surgical History No pertinent past surgical history Family History Family History Father Diabetes CVD (cardiovascular disease) Stroke Mother Mental health disorder Sister Anxiety Diabetes Substance abuse Mental health disorder Maternal Uncle Hypertension Social History Social History Housing: Apartment Alcohol intake: current Alcohol intake frequency: a few times a month Patient Tobacco Use Status: Never used Tobacco Tobacco use type: Cigarette Cigarettes Per Day: 1 Years Smoked: 0 e-Cigarette/Vaping Use: Never Used Advance Directives: No Advance Directives Information Provided: Yes Do you have a plan to hurt others: No Plan Current occupational status: employed 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 @ [employer] Cognitive needs: No Hearing needs: No Vision needs: No Physical Exam ED Vital Signs: Vital Signs - 24 hr 03/02/24 17:56 Temperature 98 F Pulse Rate 114 H Respiratory Rate 20 Blood Pressure 204/113 H Pulse Oximetry 100 Oxygen Delivery Method Room Air BMI result Body Mass Index 45.2 Const General: healthy appearing, comfortable, no acute distress, alert and awake Nutritional Appearance: well nourished Orientation/consciousness: patient oriented x3 HENMT Head: Yes normocephalic and Yes atraumatic Eyes Eyelids: Yes eyelids normal Conjunctivae: conjunctivae normal Sclerae: sclerae normal Corneas: corneas normal Pupils: Equal, round and reactive pupils present EOM: EOMs intact bilaterally Neck Neck: Yes full ROM Resp Effort & Inspection: normal respiratory effort, able to speak in complete sentences and not labored GI Inspection: No distended Palpation (GI): Soft to palpation, not firm, nontender, no guarding and not rigid Back/Spine/Pelvis Other: Tenderness to the right lumbar sacral paraspinous region. There is no vertebral tenderness. Straight leg raise positive on right. Skin General skin exam: elasticity normal Neuro General: patient oriented x3 Cranial nerves: Yes Equal, round and reactive pupils present and Yes Bilaterally intact EOM present Cognition (Neuro): normal cognition Motor exam (neuro): 5/5 motor strength present throughout Course Course Course Narrative: This is a rapid medical exam performed by Leola Prater NP: Additional HPI, ROS, PE not included below will be deferred to primary provider. Patient is a 49-year-old female presenting to the emergency department with complaint of right lower back pain after attempting to roll out of bed last night. States I think I threw my back out. Denies saddle anesthesia or bowel/bladder incontinence. Has been seeing chiropractor for similar pain but this is worse. Took Tylenol 650mg, diclofenac at 1am this morning. Patient hypertensive in triage, 204/113. Plan: UA, urine hcg, xray Reevaluation(s) Reevaluation #1: The patient was noted to be hypertensive to 204/113, she has no chest pain or headache. This is most likely related to her discomfort, we will rechecked prior to discharge Time: 20:23 Medical Decision Making Medical Decision Making MDM Narrative: 49-year-old female presents for evaluation of acute on chronic back pain. She sustained an injury while turning over in bed, there was no significant trauma. She has no neuro deficits, no warning signs for cauda equina syndrome. She has been able to urinate when she felt the need to. Her x-ray shows mild spondylosis and mild anterior listhesis of L5-S1. Her symptoms are likely related to a pulled muscle and radiculopathy. We will treat her with a short course of dexamethasone, Flexeril and oxycodone. She reports already using ibuprofen and Tylenol at home without improvement of her pain Differential Diagnosis Differential Diagnoses: The differential diagnosis associated with the presentation includes Muscle strain Radiculopathy Disc herniation Acute on chronic back pain Radiology Impression Discussion of test interpretation with radiology: I have reviewed the radiologist's reading. Radiologist Impression: XR/XR lumbar spine 2-3V IMPRESSION: Mild spondylosis of the lumbar spine, as above detailed. Grade 1 anterolisthesis of L5 on S1. Discharge Plan Discharge Clinical Impression: Low back pain Patient Disposition: Home, Self-Care Instructions: Acute Low Back Pain (ED) Additional Instructions: Your x-ray shows mild anteriolisthesis but no obvious fractures. Your pain is most likely related to a pulled muscle and inflammation causing a pinched nerve Take dexamethasone twice daily for the next 3 days. You may continue to use ibuprofen and Tylenol for pain. You may use cyclobenzaprine as needed for muscle spasms. This may make you sleepy, did not drink alcohol or drive after taking it Take oxycodone for more severe breakthrough pain. This may make you drowsy, do not drink alcohol or drive after taking it Prescriptions: New oxycodone 5 mg tablet 5 mg PO Q6H PRN (Reason: severe pain (scale score 7-10)) Qty: 10 0RF Rx Instructions: Partial Fill upon patient request. dexamethasone 4 mg tablet 4 mg PO BID Qty: 6 0RF cyclobenzaprine 10 mg tablet 10 mg PO TID PRN (Reason: muscle spasm) Qty: 12 0RF No Action diclofenac sodium 50 mg tablet,delayed release (DR/EC) 50 mg PO BID PRN (Reason: pain) Qty: 60 0RF Mirena 20 mcg/24 hours (7 yrs) 52 mg intrauterine device intrauterine acetaminophen [Tylenol Arthritis Pain] 650 mg tablet extended release 650 mg PO Q12H Stand Alone Forms: Work/School Release Print Language: Czech
--- OUTSIDE RECORDS SUMMARY | 2024-03-02 19:55 | XMS_ITS | Patient Health Record ---
Author Organization [facility] Address [address] [place] [address] Care Team Providers Care Email Marketing Assistant Name Role Phone Kiran LAZCANO, Carina Terry Primary Care Provider Un available Black, Britt Unavailable [phone] ALLERGIES No Known Allergies REASON FOR REFERRAL No Information MEDICATIONS Medication SIG (Take, Route, Frequency, Duration) Notes Start Date End Date Status Diclofenac Sodium 50 MG 1 tablet as need ed Orally Twice a day for 30 days Active Physical Therapy . . . 2-3x/week for 3-4 weeks Active Ibuprofen 200 MG 1 tablet with food o r milk as needed Orally Three times a day Active Wellbutrin SR 100 MG 1 tablet in the mor alondra Orally Once a day for 30 day(s) Active Vitamin D3 5000 UNIT/ML 0.1 ml Orally On ce a day for 30 day(s) Unknown Mirena Unknown BuSpar Unknown SOCIAL HISTORY Tobacco Use: Social History Observation Description Date Details (start date - stop date) Never Smoker NA - NA Sex Assigned At : Social History Observation Description Sex Assigned At Unknown Tobacco Use/Smoking Question Answer Notes Are you a: nonsmoker Additional Findings: Tobacco Non-User Current no n-smoker Tobacco use other than smoking: Question Answer Notes Are you an other tobacco user? 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) Active confirmed [id number] Problem Acquired hallux interphalangeus of right foot (M20.11) Active confirmed [id number] PLAN OF TREATMENT No Information Insurance Providers Payer Name Payer Address Payer Phone Subscriber Number Group Number Insured Name Patient Relationship to Insured Coverage Start Date Coverage End Date [facility] [address] [place] [address] [id number] Gilma Munson Self - patient is the insured MEDICAL (GENERAL) HISTORY Medical History History ICD Code Anxiety Shingles Cellulitis Broken bones covid-19 Depression Chicken pox Surgical History Surgery Date(Month/Year) Endometriosis Cyst Surgery
[2024-03-02] MEDS: Cyclobenzaprine HCl 10 MG TABLET PO (20:19)
[2024-03-02] MEDS: oxyCODONE HCl Immed Release 5 MG TABLET PO (20:19)
[2024-03-02] MEDS: dexAMETHasone 4 MG TABLET PO (20:19)
[2024-03-02 20:58] VITALS: BP 204/113; PULSE 114; RESP 20; TEMP 36.6; O2SAT 100
== END 2024-03-02 20:59 | disposition home or self-care (01) ==
PROVIDERS: Emergency Provider Emergency Medicine; PCP Internal Medicine
DX: M54.50 Low back pain, unspecified (principal); R10.31 Right lower quadrant pain; M79.604 Pain in right leg; F17.210 Nicotine dependence, cigarettes, uncomplicated; Z79.899 Other long term (current) drug therapy
CPT/HCPCS: 72100; 99283; J8540

== ENCOUNTER 2024-03-15 11:10 | Outpatient (AMB) | payer OTHER, SELFPAY ==
[2024-03-15 11:21] VITALS: BP 122/80; PULSE 85; O2SAT 98; BMI 48.1
--- NOTE | 2024-03-15 11:21 | AM.OFFWIN_ITS ---
Intake Vital Signs 03/15/24 11:21 Height 5 ft 4 in Weight 280 lb BMI 48.1 BP 122/80 Blood Pressure Location Lt brachial Position Sitting Pulse 85 Pulse Source Pulse Oximeter Pulse Oximetry (%) 98 Oxygen Delivery Method Room Air Intake Visit Reasons: EP back Intake Note: pt is here for back pain Patient Tobacco Use Status: Never used Tobacco Allergies No Known Allergies Allergy (Verified 03/15/24 11:21) Do you need a note to return to daycare/school/sports/work: No HPI HPI Comments History of Present Illness Details 49-year-old female presents for ongoing low back pain. Seen evaluated emergency department 2 weeks ago negative x-rays. Prescribed a few pills of oxycodone cyclobenzaprine as well as dexamethasone with good relief started to feel better symptoms have since returned over the last week and progressively worsening. Goes to chiropractor also takes Tylenol and diclofenac q.d.. [facility] Medical History (Updated 03/03/24 @ 00:01 by Dago Quezada) Pes planus of both feet Adenomyomatosis of gallbladder Varicose veins of left lower extremity Impaired fasting glucose Vitamin D deficiency Obstructive sleep apnea treated with continuous positive airway pressure (CPAP) History of 2019 novel coronavirus disease (COVID-19) Cysts of both ovaries Surgical History No pertinent past surgical history Family History Father Diabetes CVD (cardiovascular disease) Stroke Mother Mental health disorder Sister Anxiety Diabetes Substance abuse Mental health disorder Maternal Uncle Hypertension Social History Housing: Apartment Alcohol intake: current Alcohol intake frequency: a few times a month Patient Tobacco Use Status: Never used Tobacco Tobacco use type: Cigarette Cigarettes Per Day: 1 Years Smoked: 0 e-Cigarette/Vaping Use: Never Used Current occupational status: employed 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 @ [employer] Cognitive needs: No Hearing needs: No Vision needs: No Physical Exam Vital Signs: Last Vital Signs Pulse 85 03/15/24 11:21 BP 122/80 03/15/24 11:21 Pulse Ox 98 03/15/24 11:21 Oxygen Delivery Method Room Air 03/15/24 11:21 BMI result Body Mass Index 48.1 Const General: cooperative, healthy appearing, no acute distress and alert Orientation/consciousness: patient oriented x3 Limitations: no limitations HEENT Head: Yes normal to inspection Ears: hearing grossly normal bilaterally General nose exam: Normal external nose present Resp Effort & Inspection: normal respiratory effort and able to speak in complete sentences Cardio Rate: regular rate Skin General skin exam: no rashes or lesions noted Neuro General: patient oriented x3 Extrem General: Yes normal to inspection Assessment & Plan Assessment & Plan (1) Low Back Pain: Code(s): M54.50 - Low back pain, unspecified Qualifiers: Chronicity: acute Back pain laterality: right Sciatica presence: unspecified whether sciatica present Qualified Code(s): M54.50 - Low back pain, unspecified Plan: Ongoing low back pain without concerning features. Previous regimen works will prescribe couple of days of steroids and muscle relaxer will also refer to PT this time for more relief. Warning signs and symptoms given to patient. Orders: Orders PT Evaluation and Treatment Today M54.50 - Low back pain, unspecified Medications: New cyclobenzaprine 5 mg PO TID 3 days PRN 10 tabs 0RF muscle spasm dexamethasone 4 mg PO BID 3 days 6 tabs 0RF Coding Level of Care Code Est Pt Level 3 (30695) Diagnoses Acute right-sided low back pain, unspecified whether sciatica present M54.50 Chronicity: acute Back pain laterality: right Sciatica presence: unspecified whether sciatica present
== END 2024-03-15 11:55 | disposition home or self-care (01) ==
PROVIDERS: PCP Internal Medicine; Visit Provider Physician Assistant
DX: M54.50 Low back pain, unspecified (principal)
CPT/HCPCS: 99051; 99213

== ENCOUNTER → 2024-03-19 20:30 | Outpatient (REF) | payer OTHER, SELFPAY | LOC: HO.SL 20:30 | PROVIDERS: PCP Internal Medicine; Visit Provider Nurse Practitioner Family | DX: G47.33 Obstructive sleep apnea (adult) (pediatric) (principal); G47.19 Other hypersomnia; R06.83 Snoring; Z68.42 Body mass index [BMI] 45.0-49.9, adult | CPT/HCPCS: 95810 ==

== ENCOUNTER → 2024-03-19 22:19 | Outpatient (BNV) | payer OTHER, SELFPAY | PROVIDERS: PCP Internal Medicine; Visit Provider Psychiatry & Neurology Neurology | DX: G47.33 Obstructive sleep apnea (adult) (pediatric) (principal) | CPT/HCPCS: 95810 ==

== ENCOUNTER 2024-03-25 09:55 | Outpatient (AMB) | payer OTHER, SELFPAY ==
[2024-03-25 10:18] VITALS: BP 110/88; PULSE 96; O2SAT 96; BMI 50.6
--- NOTE | 2024-03-25 10:18 | A.OFFPC_ITS ---
Vital Signs 03/25/24 10:18 Height 5 ft 4 in Weight 295 lb BMI 50.6 BP 110/88 Blood Pressure Location Lt radial Position Sitting Pulse 96 Pulse Source Pulse Oximeter Pulse Oximetry (%) 96 Oxygen Delivery Method Room Air Intake Visit Reasons: [facility] ER f/u back pain Intake Note: Pt is here today for her [facility] f/u back pain Allergies No Known Allergies Allergy (Verified 03/31/24 02:47) Medication List - Last Reconciled 03/31/24 by Carina Beck MD acetaminophen ER (Tylenol Arthritis Pain) 650 mg PO Q12H cyclobenzaprine 10 mg PO TID PRN cyclobenzaprine 5 mg PO TID PRN 3 days diclofenac sodium 50 mg PO BID PRN levonorgestrel (Mirena) intrauterine oxycodone 5 mg PO Q6H PRN Tobacco use date assessed: 03/25/24 Dental Screening Dental Screen Date: 03/25/24 Did you have a dental visit in the last 12 months?: No Did you have a dental problem in the last 6 months where you did not have access to dental care?: No Was dental information given to patient?: Patient has dentist HPI [facility] ER f/u back pain HPI Details 49-year-old female here today for follow -up after recent walk-in visit where she was seen for acute low back pain. She was seen and evaluated at the emergency department 2 weeks ago, with negative x-rays findings. Prescribed oxycodone, cyclobenzaprine as well as dexamethasone with initial relief but back pain has recurred now accompanied by constipation likely due to oxycodone. Has had chiropractic treatment in the past which has not afforded any improvement. Patient now complaining of intermittent episodes of urinary incontinence, but denies any weakness or numbness in lower extremities. [facility] Medical History (Updated 03/25/24 @ 10:56 by Carina Beck MD) History of urinary incontinence Acute lumbar radiculopathy Pes planus of both feet Adenomyomatosis of gallbladder Varicose veins of left lower extremity Impaired fasting glucose Vitamin D deficiency Obstructive sleep apnea treated with continuous positive airway pressure (CPAP) History of 2019 novel coronavirus disease (COVID-19) Cysts of both ovaries Surgical History No pertinent past surgical history Family History Father Diabetes CVD (cardiovascular disease) Stroke Mother Mental health disorder Sister Anxiety Diabetes Substance abuse Mental health disorder Maternal Uncle Hypertension Social History Housing: Apartment Alcohol intake: current Alcohol intake frequency: a few times a month Patient Tobacco Use Status: Never used Tobacco Tobacco use type: Cigarette Cigarettes Per Day: 1 Years Smoked: 0 e-Cigarette/Vaping Use: Never Used Current occupational status: employed 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 Jarek Mclean, Cecile Caban, Usman Castillo and colleagues, with an educational marixa from [employer]. Review of Systems Const All systems reviewed & are unremarkable except as noted in HPI and below Physical exam (Primary Care) Vital Signs: Last Vital Signs Pulse 96 03/25/24 10:18 BP 110/88 03/25/24 10:18 Pulse Ox 96 03/25/24 10:18 Oxygen Delivery Method Room Air 03/25/24 10:18 BMI result Body Mass Index 50.6 Tobacco/Smoking Status: Tobacco use Status Tobacco use date assessed 03/25/24 03/25/24 10:21 Patient Tobacco Use Status Never used Tobacco 03/25/24 10:21 Tobacco use type Cigarette 03/25/24 10:21 e-Cigarette/Vaping Use Never Used 03/25/24 10:21 Thrive Assessment: Date of Thrive Assessment Date Thrive assessed 11/28/23 03/25/24 10:21 Const General: comfortable, no acute distress, alert and Physically active Nutritional Appearance: obese morbidly obese Orientation/consciousness: patient oriented x3 HENMT Face and sinus: Yes face symmetric Neck Other: Supple, no lymphadenopathy, thyroid gland nonpalpable Resp Auscultation: clear to auscultation bilaterally Cardio Other: S1-S2 present regular rate and rhythm GI Other: Normal bowel sounds obese, soft, slight discomfort on palpation over right upper quadrant, with no rebound or guarding Back/Spine/Pelvis Thoracic/Lumbar Spine: straight leg raise negative bilaterally and paraspinal muscle tenderness bilaterally in the mid lumbar Skin General skin exam: no rashes or lesions noted Neuro General: patient oriented x3, gait normal, tone normal, moves all extremities, Normal light touch and pain sensation, no focal motor deficits, CN's II-XI intact bilaterally and normal sensation to monofilament Extrem Other: crepitus right knee, flat feet General: Yes no joint enlargement, Yes no pedal edema and Yes normal gait Psych Appearance: grossly normal Mental Status: mental status grossly normal Speech and movement: Normal speech and movement present Affect: normal affect Assessment and Plan Assessment & Plan (1) Acute lumbar radiculopathy: Code(s): M54.16 - Radiculopathy, lumbar region (2) History of urinary incontinence: Code(s): Z87.898 - Personal history of other specified conditions Plan No improvement with oxycodone, takes diclofenac as needed together with cyclobenzaprine which affords only temporary relief. Ordered MRI of lumbar sp ine without contrast. Return to clinic after test done Orders: Orders MR lumbar spine wo con 03/25/24 M54.16 - Radiculopathy, lumbar region, Z87.898 - Personal history of other specified conditions Coding Level of Care Code Est Pt Level 3 (89823) Diagnoses Acute lumbar radiculopathy M54.16 History of urinary incontinence Z87.898
== END 2024-03-25 13:41 | disposition home or self-care (01) ==
PROVIDERS: PCP Internal Medicine; Visit Provider Internal Medicine
DX: M54.16 Radiculopathy, lumbar region (principal); Z87.898 Personal history of other specified conditions
CPT/HCPCS: 99213

== ENCOUNTER 2024-04-10 10:52 | Outpatient (AMB) | payer OTHER, SELFPAY ==
--- NOTE | 2024-04-10 10:54 | MHC.OFFVIS ---
Vital Signs 04/10/24 11:00 04/10/24 11:02 Height 5 ft 4 in Weight 295 lb 2 oz BMI 50.7 BP 118/100 H 178/109 H Blood Pressure Location Rt radial Lt radial Position Sitting Sitting Pulse 80 92 Pulse Source Pulse Oximeter Pulse Oximeter Pulse Oximetry (%) 98 Oxygen Delivery Method Room Air Intake Visit Reasons: Radiculopathy, lumbar region Intake Note: Pain sitting 0/10, standing 9/10 [employer] Director Required: No Accompanied by: Self / Same As Patient Allergies No Known Allergies Allergy (Verified 04/10/24 11:02) HPI HPI Radiculopathy, lumbar region: Details: Patient is a very pleasant 49-year-old female with past history of osteoarthritis, morbid obesity, ADRYAN with CPAP use, presents today for initial evaluation of acute low back pain with bilateral radiculopathy. Patient reports sudden onset of back pain on 03/02/24 when she turned over in bed to get out out of bed and could not walk. Patient was seen at our ER on 03/02/24 and was treated with oxycodone, dexamethasone and cyclobenzaprine with partial improvement. She had follow up for acute low back pain at Walk-In clinic on 03/15/24 and was referred to physical therapy. She reports low back pain has been chronic issue for her and she has been seeing chiropractor for this. Denies any recent adjustments or spine manipulations since onset of pain. Patient reports past history of intermittent you ran incontinence which she reports has worsened since recent back pain exacerbation. Back pain is localized to lower spine with radiation into her buttocks and into posterior thighs and calves and feet bilaterally with associated numbness, tingling and aching sensations. Patient reports radicular symptoms alternate each day, worse in the left leg today. Pain aggravated by activity, walking, prolonged sitting, bending forward or coughing and relieved by rest, changing position, heat and medication. 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 Patient completed lumbar spine x-ray and MRI as noted below. Denies previous spine surgery or injections. Denies any fever or chills, abdominal or groin pain, weakness, foot drop, bowel dysfunction or saddle anesthesia. Location: Lower back, radiates down bilateral legs posteriorly Duration: Chronic pain for 1 year, worsening since 03/02/24 Characteristics of symptom or complaint: Shooting, numbness, aching, tightness, throbbing, burning, cramping Aggravating or associated factors: Prolonged sitting, standing, bending Relieving factors: Movements, heat, diclofenac, oxycodone, oral steroids, cyclobenzaprine Treatment: Starting PT 04/23/24, [facility], Walk-In, MRI, xrays [facility] Medical History (Updated 04/10/24 @ 20:06 by FREDERICK Brunner) History of urinary incontinence Acute lumbar radiculopathy Pes planus of both feet Adenomyomatosis of gallbladder Varicose veins of left lower extremity Impaired fasting glucose Vitamin D deficiency Obstructive sleep apnea treated with continuous positive airway pressure (CPAP) History of 2019 novel coronavirus disease (COVID-19) Cysts of both ovaries Surgical History No pertinent past surgical history Family History Father Diabetes CVD (cardiovascular disease) Stroke Mother Mental health disorder Sister Anxiety Diabetes Substance abuse Mental health disorder Maternal Uncle Hypertension Social History Housing: Apartment Alcohol intake: current Alcohol intake frequency: a few times a month Patient Tobacco Use Status: Never used Tobacco Tobacco use type: Cigarette Cigarettes Per Day: 1 Years Smoked: 0 e-Cigarette/Vaping Use: Never Used Current occupational status: employed 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 Alert and oriented. Mood and affect appropriate. Follows and participates in conversation appropriately. Respiratory effort is unlabored. No cough. Able to transition from sit to stand unassisted. Ambulates with bilaterally normal heel strike and toe off. General: Yes no CVA tenderness Back/Spine/Pelvis Other: Patient is able to walk and stand on heels and tip toes with no difficulties demonstrating good motor tone. No limping. Can flex forward to 75-80 degrees and extend to 5-10 degrees before experiencing lumbar pain. Demonstrates 5/5 strength of quadriceps bilaterally as well as flexion/dorsiflexion of bilateral feet against resistance. 2+ pedal pulses bilaterally. Seated straight leg rise with dorsiflexion positive bilaterally. +2 patellar and +1 achilles reflexes bilaterally. Facet loading test positive bilaterally. Aaron sign, David?s and Stinchfield tests are negative bilaterally. No groin pain with I/E hip rotations. Valsalva maneuver positive. Back: no CVA tenderness Cervical Spine: cervical ROM normal and No Cervical spine tenderness Thoracic/Lumbar Spine: thoracic and lumbar spine normal to inspection, No Thoracic/lumbar spine scar(s), Lasegue's sign positive bilateral and diffuse, pain with thoraco-lumbar ROM, paraspinal muscle tenderness, thoraco-lumbar ROM limited, No thoracic spinal tenderness and lumbar spinal tenderness (L4-S1) Pelvis: buttock tenderness bilaterally and sciatic notch tenderness bilateral Sacroiliac joints: bilaterally tender to palpation Extrem General: Yes capillary refill normal, Yes no clubbing, cyanosis or edema and Yes no calf tenderness Results Reviewed Results Reviewed: MR SPINE LUMBAR without CONTRAST 03/27/24 at [facility] INDICATION: Low back pain radiating into hips and legs. Incontinence. TECHNIQUE: Unenhanced multiplanar, multisequence MR imaging of the lumbar spine. COMPARISON: None. FINDINGS: Normal lumbar alignment is demonstrated. Vertebral heights are well maintained. Degenerative endplate changes are seen at L5-S1. There is T2 hyperintensity within the L5 vertebral body Schmorl''s node is seen at the superior endplate of L1, T12, T11, L2, and the inferior endplate of L5. Conus medullaris is unremarkable. The conus terminates at L1-2. Paraspinal soft tissues and visualized portions of the abdomen and pelvis are unremarkable. At L1-2 there is a posterior right paracentral disc bulge effacing the ventral thecal sac. Mild right neural foraminal narrowing is seen. No central canal stenosis is identified. Bilateral facet hypertrophy is seen. At L2-3 there is a broad-based left paracentral disc protrusion. There is mild right and mild to moderate left neural foraminal narrowing. There is effacement of the ventral thecal sac. Bilateral facet hypertrophy is seen. At L3-4 there is a right-sided disc protrusion with moderate to severe right and mild left neural foraminal narrowing. No central canal stenosis is identified. Bilateral facet hypertrophy is seen. At L4-5 there is bilateral facet hypertrophy. There is mild right and mild to moderate left neural foraminal narrowing. No central canal stenosis is seen. No central canal stenosis is noted. At L5-S1 there is a central disc extrusion with severe bilateral neural foraminal narrowing. There is effacement of the ventral thecal sac and bilateral facet hypertrophy. Given the extent of degenerative change, the elevated T2 and STIR signal in the L5 vertebral body likely represents ongoing Modic type change. IMPRESSION: 1. Degenerative endplate changes are seen at L5-S1. There is a central disc extrusion with severe bilateral neural foraminal narrowing at this level. Elevated T2 and STIR signal is also seen within the L5 vertebral body which is likely related to ongoing degenerative change. However, if there is clinical suspicion for osteomyelitis, post contrast imaging can be obtained. 2. At L4-5 there is mild to moderate left and mild right neural foraminal narrowing. 3. At L3-4 there is a right-sided disc protrusion with moderate to severe right and mild left neural foraminal narrowing. 4. At L2-3 there is a broad-based left paracentral disc protrusion. Mild to moderate left and mild right neural foraminal narrowing is seen. 5. At L1-2 there is a right paracentral disc bulge. Mild right neural foraminal narrowing is seen. XR lumbar spine 2-3V 03/02/24 CLINICAL INFORMATION: Reason for Exam severe R sided pain FINDINGS: 5 nonrib-bearing lumbar-type vertebral bodies. Vertebral body heights are maintained. Grade 1 anterolisthesis of L5 on S1. Mild multilevel degenerative disc disease with loss of disc space height, facet arthropathy and disc osteophyte complexes. This is worst at L5/S1. Paravertebral soft tissues are unremarkable. IMPRESSION: Mild spondylosis of the lumbar spine, as above detailed. Grade 1 anterolisthesis of L5 on S1. Assessment & Plan Assessment & Plan (1) Acute lumbar radiculopathy: Code(s): M54.16 - Radiculopathy, lumbar region Category: Medical (2) Lumbosacral disc herniation: Code(s): M51.27 - Other intervertebral disc displacement, lumbosacral region Category: Medical (3) Lumbar degenerative disc disease: Code(s): M51.36 - Other intervertebral disc degeneration, lumbar region Category: Medical (4) Acute lumbar radiculopathy: Code(s): M54.16 - Radiculopathy, lumbar region Category: Medical (5) Lumbosacral disc herniation: Code(s): M51.27 - Other intervertebral disc displacement, lumbosacral region Category: Medical (6) Lumbar degenerative disc disease: Code(s): M51.36 - Other intervertebral disc degeneration, lumbar region Category: Medical (7) Vertebrogenic low back pain: Code(s): M54.51 - Vertebrogenic low back pain Category: Medical (8) Morbid obesity with BMI of 50.0-59.9, adult: Code(s): E66.01 - Morbid (severe) obesity due to excess calories; Z68.43 - Body mass index [BMI] 50.0-59.9, adult Category: Medical Plan Neurospine referral for surgical evaluation for acute lumbar radiculopathy with significant disc herniation with severe bilateral neural foraminal narrowing and degenerative endplate changes at L5-S1. Briefly discussed interventional treatments to address radicular symptoms, including therapeutic injections. Patient is starting physical therapy on 04/23/24 at [facility]. Scripts provided for gabapentin and lidocaine patches. Side effects and precautions were discussed with patient. Patient reports#9 oxycodone tabs at home which she takes only for severe pain at night. Continue diclofenac and muscle relaxant as needed. Patient is aware to call if pain worsens or if she develops any red flag symptoms to seek emergency care. Patient denies any cauda equina syndrome symptoms at this time. All questions and concerns have been answered and patient is the treatment plan. Follow-up after Neuro Spine evaluation and sooner as needed. Orders: Referrals Neuro Spine Referral M51.27 - Other intervertebral disc displacement, lumbosacral region, M51.36 - Other intervertebral disc degeneration, lumbar region, M54.16 - Radiculopathy, lumbar region Medications: New gabapentin 300 mg PO Q12H 30 days 60 caps 0RF pain M51.27 - Other intervertebral disc displacement, lumbosacral region, M51.36 - Other intervertebral disc degeneration, lumbar region, M54.16 - Radiculopathy, lumbar region lidocaine 5% 1 patch topical DAILY 30 days 30 ea 3RF pain M51.27 - Other intervertebral disc displacement, lumbosacral region, M51.36 - Other intervertebral disc degeneration, lumbar region, M54.50 - Low back pain, unspecified Coding Level of Care Code New Pt Level 4 (15103) Diagnoses Acute lumbar radiculopathy M54.16 Lumbosacral disc herniation M51.27 Lumbar degenerative disc disease M51.36 Vertebrogenic low back pain M54.51 Morbid obesity with BMI of 50.0-59.9, adult E66.01; Z68.43
[2024-04-10 11:00] VITALS: BP 118/100; PULSE 80; O2SAT 98; BMI 50.7
[2024-04-10 11:02] VITALS: BP 178/109; PULSE 92
== END 2024-04-10 11:33 | disposition home or self-care (01) ==
PROVIDERS: PCP Internal Medicine; Visit Provider Nurse Practitioner Family
DX: M54.16 Radiculopathy, lumbar region (principal); M51.27 Other intervertebral disc displacement, lumbosacral region; M51.36 Other intervertebral disc degeneration, lumbar region; E66.01 Morbid (severe) obesity due to excess calories; Z68.43 Body mass index [BMI] 50.0-59.9, adult
CPT/HCPCS: 99204

== ENCOUNTER → 2024-04-10 10:52 | Outpatient (BNVA) | payer OTHER, SELFPAY | PROVIDERS: PCP Internal Medicine; Visit Provider Nurse Practitioner Family ==

== ENCOUNTER 2024-04-14 13:59 | Outpatient (REF) | payer OTHER, SELFPAY | END 2024-04-14 14:00 | disposition home or self-care (01) | LOC: HO.HOSX 13:59 | PROVIDERS: PCP Internal Medicine; Visit Provider Physician Assistant | DX: Z13.89 Encounter for screening for other disorder (principal) ==

== ENCOUNTER 2024-04-14 13:59 | Outpatient (AMB) | payer OTHER, SELFPAY ==
--- NOTE | 2024-04-14 14:08 | HO.SPINEOV ---
Intake Visit Reasons: LBP Intake Note: Ms. Munson is here today c/o low back pain. MRI done @ [facility]. 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 She comes in today with a chief complaint of low back pain. She reports that her pain really became noticeable back in July of 2023, then was significantly exacerbated in February when she ?threw out my back getting out of bed. She states since February she has been in nearly constant pain with only brief intervals of reprieve. She reports that her pain worsens after prolonged periods of stasis. She denies any positional changes associated with her pain. She has tried several different medications to help alleviate her pain including ruyy-gbb-flrngqi remedies such as diclofenac gel and Tylenol, alongside prescription medications such as gabapentin oxycodone lidocaine patches and muscle relaxers. She has been to physical therapy in the past, but has not yet been for her back pain. She also has not attempted cortisone injections as of yet, as our colleagues in pain management are likely in the process of evaluating her for this. She denies any numbness/tingling near her groin/perineal area. She denies any urinary or bowel incontinence, aside from her baseline urinary incontinence issues. In addition to this she denies any significant radicular pain. PMH: Endometriosis, vitamin-D deficiency, obstructive sleep apnea, anxiety, depression, varicose veins, morbid obesity. Laparoscopic removal of ovarian cyst in 2010. Social hx: Patient does not smoke, reports no substance use. Medications: Diclofenac gel, lidocaine patches, gabapentin, oxycodone, cyclobenzaprine, Tylenol, Mirena. Allergies: NKDA. Physical exam: Gilma has 5/5 strength in her upper and lower extremities. She is able to ambulate well and rises from a seated position without difficulty. She denies any significant sensational deficits. Her reflexes are 1+ hypoactive diffusely. (-) bilateral straight leg raise, (-) Romero's bilaterally, (-) clonus. Imaging review: MRI of the lumbar spine completed here at [facility] is a very low quality. Given that, it shows diffuse spondylosis of the lumbar spine. There is an old compression deformity of L1. She has moderate right-sided foraminal stenosis at L3-4, with the associated degenerative disc disease at this level, there is mild-moderate foraminal stenosis at L4-5. And most predominantly there is severe degenerative type 2 Modic endplate changes at the inferior endplate of L5, and a grade 1 spondylolisthesis seen at L5-S1. There is also a posterior disc protrusion at this level causing some degree of bilateral foraminal stenosis. Impression: Gilma is a pleasant 49-year-old female that comes in today with a chief complaint of predominantly low back pain. She states that she had an inciting incident of throwing out her back when attempting to rise out of bed in February. She denies any perineal numbness/tingling, and denies any bowel/bladder incontinence outside of her normal baseline. I would like to send the patient for a set of flexion/extension x-rays to ensure that she does not have a worsening listhesis at L5-S1 with movement. Assuming that she does not have any excessive her significant movement on dynamic x-ray imaging I think she is fine to go ahead with conservative treatments by our colleagues in pain management who referred her here. I will call and update the patient after I have a chance to review her imaging. Thank you for allowing us to care for your patient. The total time spent with this visit with this patient was 45 minutes reviewing history, physical exam, MRI imaging review, and implementation of treatment plan or further diagnostic testing Anand Centeno MD,PhD [facility] Orders: Orders XR lumbar spine 4V min Today M43.10 - Spondylolisthesis, site unspecified Coding Level of Care Code New Pt Level 4 (35102) Diagnoses Spondylolisthesis M43.10
== END 2024-04-14 14:42 | disposition home or self-care (01) ==
PROVIDERS: PCP Internal Medicine; Referring Provider Nurse Practitioner Family; Visit Provider Physician Assistant
DX: M43.10 Spondylolisthesis, site unspecified (principal)
CPT/HCPCS: 99204

== ENCOUNTER 2024-05-19 13:00 | Outpatient (RCR) | payer OTHER, SELFPAY ==
--- NOTE | 2024-04-23 09:15 | MHC.PT.EP ---
[facility] [place] Office [place] [facility] [place] [facility] [address] Cristian Dixon [address] [phone] F: [phone] F: [phone] F: [phone] F: [phone] Physical Therapy Plan of Care Date of Evaluation: 04/23/24 Date of Surgery: NA Diagnosis: Low back pain Assessment: Gilma is a 49 year old female who is referred to PT for low back pain . She reports of having back pain for about 10 months however about 2 months back she threw her back out while rolling in the bed . Her pain was so severe that she had to go to the ED. She was given pain meds and d/c home. On PT examination she presented with no TTP, 8/10 pain on waking up and sitting in back and L LE, decreased lumbar ROM, decreased muscle strength, altered posture and gait. She lives with her son and is independent with all ADLS but has pain with them. 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 She would benefit from skilled PT to address the aforementioned impairments and improve tolerance to functional activities. Frequency and Duration: The patient will be seen 2/week for 4 weeks Short Term Goals: 1. Pt will demonstrate good awareness of body mechanics for work activities and demonstrate good sitting posture with lumbar roll in 2 weeks. 2. Pt will be able to move her trunk through all planes of motion without any pain or discomfort which will enable her to dress her lower body without difficulties in 3 weeks. Jail Goals: 1. Pt will demonstrate an increase in muscle strength by 1 grade which will enable her to perform all work activities and IADLS without pain in 4 weeks. 2. Pt will be independent with all HEP for symptom management and maintenance and return to PLOF in 4 weeks. Treatment Plan: Modalities to reduce pain, spasms and effusion. Manual therapy to restore motion and function. Therapeutic exercise to improve strength and flexibility. Neuromuscular re-education for posture and balance. Therapeutic activities to return to functional activities of daily living. Electronically signed by: Eugenia George PT DPT Please sign and return to therapist. Thank you for your referral.
--- NOTE | 2024-07-03 10:33 | MHC.PT.DC ---
[facility] [place] Office [place] Office [place] Office [address] Cristian Dixon [address] [phone] F: [phone] F: [phone] F: [phone] F: [phone] Physical Therapy Discharge Report Diagnosis: Low back pain Date of Surgery: NA Date of Evaluation: 04/23/24 Date of Discharge: 07/03/24 Treatments to Date: 4 Cancellations to Date: 3 No Shows to Date: 1 Discharge Status: Improved Function Independent with HEP Discharge Summary: Gilma completed 4 PT visits, canceled 3 and no showed 1. She has made improvements and is independent with all HEPs. She is able to manage her symptoms with HEP. She is therefore being d/c from PT. Electronically signed by: Eugenia George PT DPT Please sign and return to therapist. Thank you for your referral.
== END 2024-07-03 10:33 | disposition home or self-care (01) ==
LOC: HO.PT 13:00
PROVIDERS: PCP Internal Medicine; Visit Provider Physician Assistant
DX: M54.50 Low back pain, unspecified (principal)
CPT/HCPCS: 97110; 97112; 97161

== ENCOUNTER 2024-09-10 14:09 | Outpatient (AMB) | payer OTHER, SELFPAY ==
[2024-09-10 14:17] VITALS: BP 130/88; PULSE 81; O2SAT 98; BMI 52.2
--- NOTE | 2024-09-10 14:17 | MHC.OFFVIS ---
Vital Signs 09/10/24 14:17 Height 5 ft 4 in Weight 304 lb BMI 52.2 BP 130/88 Blood Pressure Location Rt brachial Position Sitting Pulse 81 Pulse Source Pulse Oximeter Pulse Oximetry (%) 98 Oxygen Delivery Method Room Air Intake Visit Reasons: Follow up Intake Note: Patient presents follow up ADRYAN. In-lab in chart, labs in chart. Allergies No Known Allergies Allergy (Verified 10/09/24 09:30) HPI Comments Details: 49-yr-old female presents for f/u of severe sleep apnea. Since the last visit, 03/19/2024, in-lab split night PSG: Sleep efficiency 91%, REM latency 125 minutes. Diagnostic portion of PSG showed AHI 101/hour and REM AHI January 09/hour, average SpO2 88% with O2 renzo 63% Titration portion PSG showed AHI 2.3/hour, average SpO2 92% O2 renzo 85%, and SpO2 under 88% for 0.1 minutes, with optimization of sleep apnea and oxygenation level on CPAP 9 cm H2O. Since, patient states she is sleeping better with her CPAP machine. However, she states she was initially fitted with a nasal pillow, however found that the nasal mask she had is a better fit. She has improved though still low daytime energy, she states now she can now go to more than 1 stores in a single day without fallng asleep. However still has daytime sleepiness whne inactive. 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 So sometimes her sleep is fragmented, and on her days off she may sleep much longer. Though, generally she feels like she is more of a night person. She is curious if she would benefit from taking sleep medication, though is not sure if you would even take it. [address], [facility] Email: [email or web address] Compliance Report Usage 08/12/2024 - 09/10/2024 Usage days 30/30 days (100%) >= 4 hours 19 days (63%) < 4 hours 11 days (37%) Usage hours 158 hours 55 minutes Average usage (total days) 5 hours 18 minutes Average usage (days used) 5 hours 18 minutes Median usage (days used) 5 hours 37 minutes Total used hours (value since last reset - 09/10/2024) 411 hours AirSense 11 AutoSet Serial number [id number] Mode CPAP Set pressure 9 cmH2O EPR Off Therapy Leaks - L/min Median: 0.3 95th percentile: 4.9 Maximum: 60.9 Events per hour AI: 3.8 HI: 0.4 AHI: 4.2 02/26/24, Previous HPI: Previous HST (prior to 2020) revealed AHI 127.3/hr with O2 renzo 68%. She was never able to undergo in-lab PAP titration study as previous insurance denied request. Patient reports she has been complaint w/ her APAP. She is not sure if the air pressure is correct. She still snores when using her mask. She always feels tired. Can easily fall asleep when inactive. She has strategies to reduce sleepiness while driving- naps, breaks, avoids driving at night. She did switch from working day shift as she could not wake up in the am, even with using her APAP- to storage battery charger. 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 Feels her mood is better now taht she is working storage battery charger. usually tolerates working nights well, unless assigned to one-to-one patinet sitter, as she can become very sleepy. Hypersomnolence questionnaire: Have you ever had episodes of sudden weakness? Sometimes her phone may drop out of her hand- not associated with strong emotion. Have you ever had episodes of sudden weakness associated with strong emotions? Denies. Sleep hygiene questionnaire: What is your usual sleep routine? Workday routine- Usual bedtime is at 8:30am through 3-3:30pm. Usual days off routine- 12am through 7-8am. Do you take naps? Unintentional naps and can nap all day. Is your sleep environment cool, dark, and quiet? Yes Do you exercise? She was swimming. Does some hiking, outdoor biking. Has been having some back issues and leg spams- seeing a chiropractor. There is an order in place for XR lumbar spine. Do you take caffeine or other stimulants? Celius energy drink. Do you use electronics in bed? 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 Report Usage 01/26/2024 - 02/24/2024 Usage days 28/30 days (93%) Usage days >= 4 hours 24 days (80%) Usage days < 4 hours 4 days (13%) Average usage (days used) 5 hours 21 minutes Median usage (days used) 4 hours 56 minutes Total used hours (value since last reset - 02/24/2024) 5,856 hours AirSense 10 AutoSet Serial number [id number] Mode AutoSet Min Pressure 5 cmH2O Max Pressure 20 cmH2O EPR Fulltime EPR level 3 Response Standard Therapy Pressure Maximum Pressure: 15.6 cmH2O Leaks - L/min Median: 0.2 95th percentile: 4.0 Maximum: 49.8 Residual events per hour AI: 2.9 HI: 0.2 AHI: 3.1 PFSH Medical History History of urinary incontinence Acute lumbar radiculopathy Pes planus of both feet Adenomyomatosis of gallbladder Varicose veins of left lower extremity Impaired fasting glucose Vitamin D deficiency Obstructive sleep apnea treated with continuous positive airway pressure (CPAP) History of 2019 novel coronavirus disease (COVID-19) Cysts of both ovaries Surgical History No pertinent past surgical history Family History Father Diabetes CVD (cardiovascular disease) Stroke Mother Mental health disorder Sister Anxiety Diabetes Substance abuse Mental health disorder Maternal Uncle Hypertension Social History Housing: Apartment Alcohol intake: current Alcohol intake frequency: a few times a month Patient Tobacco Use Status: Never used Tobacco Tobacco use type: Cigarette Cigarettes Per Day: 1 Years Smoked: 0 Smoked in Last 30 Days: No e-Cigarette/Vaping Use: Never Used Use of substances other than those prescribed or required for medical reasons: No Advance Directives: No Advance Directives Information Provided: Yes Current occupational status: employed 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 @ [employer] Cognitive needs: No Hearing needs: No Vision needs: No Physical Exam Vital Signs: Last Vital Signs Pulse 81 09/10/24 14:17 BP 130/88 09/10/24 14:17 Pulse Ox 98 09/10/24 14:17 Oxygen Delivery Method Room Air 09/10/24 14:17 BMI result Body Mass Index 52.2 Const General: no acute distress Orientation/consciousness: patient oriented x3 Resp Effort & Inspection: normal respiratory effort and able to speak in complete sentences Cardio Rate: regular rate Rhythm: regular rhythm Neuro General: patient oriented x3 Psych Mental Status: mental status grossly normal Speech and movement: Clear speech present Attitude: cooperative Assessment & Plan Assessment & Plan (1) Severe obstructive sleep apnea: Code(s): G47.33 - Obstructive sleep apnea (adult) (pediatric) Category: Medical (2) Muscle spasm: Code(s): M62.838 - Other muscle spasm Category: Medical (3) Fatigue: Code(s): R53.83 - Other fatigue Category: Medical (4) Morbid obesity with BMI of 45.0-49.9, adult: Code(s): E66.01 - Morbid (severe) obesity due to excess calories; Z68.42 - Body mass index [BMI] 45.0-49.9, adult Category: Medical (5) Excessive daytime sleepiness: Code(s): G47.19 - Other hypersomnia Category: Medical (6) Snoring: Code(s): R06.83 - Snoring Category: Medical (7) Vitamin D deficiency: Code(s): E55.9 - Vitamin D deficiency, unspecified Category: Medical (8) 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 Continue CPAP 9 cm H2O with EPR off- nightly greater than 4 hours, as patient is having good clinical effect from use. We will request mask fitting- as patient prefers a nasal mask. Continue to clean and change CPAP supplies routinely. Use distilled water in CPAP water reservoir. Encouraged patient to optimize sleep hygiene, specifically related to shift work. Information again shared on optimizing sleep hygiene in setting of shift work. Patient may benefit from trying melatonin in the morning to promote sleeping during daytime hours. Unfortunately, patient would not be a candidate for alternate ADRYAN treatment such as inspire at this time, as her baseline AHI and BMI are too high at this time. Patient may be a good candidate to consider trying Zepbound in setting of ADRYAN- which we root request weight management consult for- she will consider. In the meantime, patient is encouraged to consider dietary adjustments in the setting of working shift work, as this can significantly affect metabolism. Start Modafinil 100mg upon start of pt's day, to reduce severity of excessive daytime sleepiness symptoms in setting of optimal PAP tx usage. Check labs. Pt to follow-up in 6 months or sooner prn. Orders: Orders Vitamin D 25-OH (D2 and D3) 09/10/24 E55.9 - Vitamin D deficiency, unspecified, 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 Vitamin B6 09/10/24 E55.9 - Vitamin D deficiency, unspecified, 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 Coding Level of Care Code Est Pt Level 4 (19956) Diagnoses Severe obstructive sleep apnea G47.33 Muscle spasm M62.838 Fatigue R53.83 Morbid obesity with BMI of 45.0-49.9, adult E66.01; Z68.42 Excessive daytime sleepiness G47.19 Snoring R06.83 Vitamin D deficiency E55.9 Hypervitaminosis B6 E67.2
--- OUTSIDE RECORDS SUMMARY | 2024-09-10 14:20 | XMS_ITS | Patient Health Record ---
Author Organization [facility] Address [address] [place] [address] Care Team Providers Care Produce Associate Name Role Phone Kiran LAZCANO, Carina Terry Primary Care Provider Un available Black, Britt Unavailable [phone] Allergies No Known Allergies Reason For Referral No Information Medications Medication SIG (Take, Route, Frequency, Duration) Notes [...] 30 day(s) Unknown Mirena Unknown BuSpar Unknown Social History Tobacco Use: Social History Observation Description Date Details (start date - stop date) Never Smoker NA - NA Tobacco Use/Smoking Question Answer Notes Are you a: nonsmoker Additional Findings: Tobacco Non-User Current no n-smoker Tobacco use other than smoking: Question Answer Notes Are you an other tobacco user? No Problems Problem Type SNOMED Code ICD Code Onset Dates Problem Status W/U Status Risk Notes Problem Localized, primary osteoarthritis of the ankle and/or foot (309809161) Primary osteoarthritis, right ankle and foot (M19.071) Active confirmed Problem Localized, primary osteoarthritis of the ankle and/or foot (191420426) Primary osteoarthritis, left ankle and foot (M19.072) Active confirmed Problem Acquired hammer toe of right foot ([id number] ) Other hammer toe(s) (acquired), right foot (M20.41) Active confirmed Problem [id number] Acquired hallux interphalangeus of left foot (M20.12) Active confirmed Problem [id number] Acquired hallux interphalangeus of right foot (M20.11) Active confirmed Plan Of Treatment No Information Insurance Providers Payer Name Payer Address Payer Phone Subscriber Number Group Number Insured Name Patient Relationship to Insured Coverage Start Date Coverage End Date [facility] [address] [place] [address] [id number] Gilma Munson Self - patient is the insured Medical (General) History Medical History History ICD Code Anxiety Shingles Cellulitis Broken bones covid-19 Depression Chicken pox Surgical History Surgery Date(Month/Year) Endometriosis Cyst Surgery
== END 2024-09-10 15:06 | disposition home or self-care (01) ==
PROVIDERS: PCP Internal Medicine; Visit Provider Nurse Practitioner Family
DX: G47.33 Obstructive sleep apnea (adult) (pediatric) (principal); M62.838 Other muscle spasm; R53.83 Other fatigue; E66.01 Morbid (severe) obesity due to excess calories; Z68.42 Body mass index [BMI] 45.0-49.9, adult; G47.19 Other hypersomnia; R06.83 Snoring; E55.9 Vitamin D deficiency, unspecified; E67.2 Megavitamin-B6 syndrome
CPT/HCPCS: 99214

== ENCOUNTER → 2024-09-10 14:09 | Outpatient (BNVA) | payer OTHER, SELFPAY | PROVIDERS: PCP Internal Medicine; Visit Provider Nurse Practitioner Family ==

== ENCOUNTER 2024-10-09 09:11 | Emergency (ER) | payer OTHER, SELFPAY ==
[2024-10-09 09:15] VITALS: BP 188/100; PULSE 98; RESP 16; TEMP 37; O2SAT 100; BMI 50.7
--- NOTE | 2024-10-09 09:57 | ED_ITS ---
HPI - Back Pain/Injury General Chief Complaint: Back Pain/Injury Stated Complaint: r leg pain Time Seen by Provider: 10/09/24 09:49 Source: patient and old records reviewed Mode of arrival: ambulatory Limitations: no limitations History of Present Illness ED Provider: DILAN BROWN Narrative: 49 yo female with PMH of sciatica, lumbar disc disease, obesity, ADRYAN, anxiety and depression here with c/o R sided lumbar strain with radicular symptoms to the R leg no b/b incontinence, no saddle anesthesia, neuro intact, no abdominal pain, no IVDA not on thinners. She has no fevers her usual meds are diclofenac / gabapentin but they are not helping MD elicited complaint: back pain Pertinent past history: prior back pain Onset (ago): week(s) (2) Timing: progressively worsening Severity: severe Similar Symptoms Previously: Yes Quality: sharp Location: lumbar spine Radiation: right upper leg Exacerbating factors: movement and supine positioning Relieving factors: none Context: other (getting up out ob ed) Associated symptoms: denies other symptoms Treatments prior to arrival: other medications Work related injury: No Related Data Home Medications ?Medication ?Instructions ?Recorded ?Confirmed levonorgestrel 21 mcg/24 hr (up to intrauterine 11/14/21 02/26/24 8 years) 52 mg intrauterine device (Mirena) acetaminophen 650 mg 650 mg PO Q12H 02/26/24 02/26/24 tablet,extended release (Tylenol Arthritis Pain) Previous Rx's ?Medication ?Instructions ?Recorded oxycodone 5 mg tablet 5 mg PO Q6H PRN severe pain (scale 04/02/24 score 7-10) #10 tabs cyclobenzaprine 10 mg tablet 10 mg PO TID PRN muscle spasm #12 05/22/24 tabs cyclobenzaprine 5 mg tablet 5 mg PO TID PRN muscle spasm 3 05/22/24 days #10 tabs gabapentin 300 mg capsule 300 mg PO Q12H pain 30 days #60 08/19/24 caps diclofenac sodium 50 mg 50 mg PO BID PRN pain #60 tabs 09/05/24 tablet,delayed release lidocaine 5 % topical patch 1 patch topical DAILY pain 30 days 09/25/24 #30 ea cyclobenzaprine 10 mg tablet 10 mg PO TID PRN muscle spasm #20 10/09/24 tabs morphine 15 mg immediate release 15 mg PO Q6H PRN pain #12 tabs 10/09/24 tablet prednisone 20 mg tablet 40 mg (2 x 20 mg) PO DAILY 5 days 10/09/24 #10 tabs Allergies Allergy/AdvReac Type Severity Reaction Status Date / Time No Known Allergies Allergy Verified 10/09/24 09:30 Review of Systems Review of Systems: Constitutional : No Weight loss, No Fever, No Chills, ENT/Mouth : No Hearing loss, No Ear Pain, No Nasal Congestion, No Sinus Pain, No Hoarseness, No sore throat, No Rhinorrhea, No Swallowing Difficulty Cardiovascular : No Chest Pain, No SOB Respiratory : No Cough, No Dyspnea Gastrointestinal : No Nausea, No Vomiting, No Diarrhea, No abdominal Pain, No Hematochezia, No Melena Genitourinary : No Dysuria, No Urinary Frequency, No Hematuria, No Urinary Incontinence, Musculoskeletal : positive back pain Skin : No Skin Lesions, No rash Neuro : No Weakness, No Numbness, No Paresthesias, no loss of bowel or bladder incontinence, no saddle anesthesia All other systems are reviewed and are negative [facility] Past Medical History Attestation statement: The following information was validated with the patient. Source: old records reviewed Medical History History of urinary incontinence Acute lumbar radiculopathy Pes planus of both feet Adenomyomatosis of gallbladder Varicose veins of left lower extremity Impaired fasting glucose Vitamin D deficiency Obstructive sleep apnea treated with continuous positive airway pressure (CPAP) History of 2019 novel coronavirus disease (COVID-19) Cysts of both ovaries Surgical History No pertinent past surgical history Family History Family History Father Diabetes CVD (cardiovascular disease) Stroke Mother Mental health disorder Sister Anxiety Diabetes Substance abuse Mental health disorder Maternal Uncle Hypertension Social History Social History Housing: Apartment Alcohol intake: current Alcohol intake frequency: a few times a month Patient Tobacco Use Status: Never used Tobacco Tobacco use type: Cigarette Cigarettes Per Day: 1 Years Smoked: 0 e-Cigarette/Vaping Use: Never Used Advance Directives: No Advance Directives Information Provided: Yes Current occupational status: employed 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 Oriented X3. No acute distress. Eyes: Pupils equal, round and reactive to light. ENT: Pharynx normal. Neck: Normal inspection. Neck supple. CVS: Normal heart rate and rhythm. Pulses normal. Respiratory: No respiratory distress. Breath sounds normal. Abdomen: Soft and nontender. Skin: Skin warm and dry. Normal skin color. Normal skin turgor. Extremities: No lower extremity edema. No calf ttp Neuro: Oriented X 3. No motor deficit. No sensory deficit. CN2-12 intact. NV intact, 2+ DTR R side patella, no clonus strength intact Medical Decision Making Medical Decision Making MDM Narrative: 49 yo female with PMH of sciatica, lumbar disc disease, obesity, ADRYAN, anxiety and depression here with c/o R sided radicular back pain but not toxic benign abd no cauda equina and looks well - at this time offered muscle relaxers, short course pain medications, oral steroids - she is well appearing. No concern for vascular injury or spinal compromise. distal pulses intact Differential Diagnosis Differential Diagnoses: The differential diagnosis associated with the presentation includes lumbar radiculopathy no signs of cauda equina has had this before doubt renal colic Admission/Observation Consideration of admission/observation: Escalation of care including admission/observation considered feels stable for outpatient management External Record Review External record reviewed: Outpatient record Prescription Management I considered prescription management with: Pain Medication and Other Discharge Plan Discharge Clinical Impression: Lumbar radiculopathy Patient Disposition: Home, Self-Care Instructions: Acute Low Back Pain (ED) Additional Instructions: return for numbness, weakness, loss of control of bowel or bladder follow up with your doctor Prescriptions: New cyclobenzaprine 10 mg tablet 10 mg PO TID PRN (Reason: muscle spasm) Qty: 20 0RF prednisone 20 mg tablet 40 mg PO DAILY 5 Days Qty: 10 0RF morphine 15 mg tablet 15 mg PO Q6H PRN (Reason: pain) Qty: 12 0RF Rx Instructions: partial fill okay; Partial Fill upon patient request. No Action oxycodone 5 mg tablet 5 mg PO Q6H PRN (Reason: severe pain (scale score 7-10)) Qty: 10 0RF Rx Instructions: Partial Fill upon patient request. cyclobenzaprine 5 mg tablet 5 mg PO TID PRN (Reason: muscle spasm) 3 Days Qty: 10 0RF cyclobenzaprine 10 mg tablet 10 mg PO TID PRN (Reason: muscle spasm) Qty: 12 0RF gabapentin 300 mg capsule 300 mg PO Q12H 30 Days Qty: 60 0RF diclofenac sodium 50 mg tablet,delayed release (DR/EC) 50 mg PO BID PRN (Reason: pain) Qty: 60 0RF lidocaine 5 % adhesive patch,medicated 1 patch topical DAILY 30 Days Qty: 30 3RF Mirena 20 mcg/24 hours (7 yrs) 52 mg intrauterine device intrauterine acetaminophen [Tylenol Arthritis Pain] 650 mg tablet extended release 650 mg PO Q12H Stand Alone Forms: Work/School Release Print Language: Indonesian
[2024-10-09 10:25] VITALS: BP 186/82; PULSE 82; RESP 17; TEMP 36.8; O2SAT 99
[2024-10-09 10:28] VITALS: BP 186/82; PULSE 82; RESP 17; TEMP 36.8; O2SAT 99
== END 2024-10-09 10:41 | disposition home or self-care (01) ==
PROVIDERS: Emergency Provider Emergency Medicine; PCP Internal Medicine
DX: M54.16 Radiculopathy, lumbar region (principal); M79.604 Pain in right leg; Z79.899 Other long term (current) drug therapy
CPT/HCPCS: 99283; 99284

== ENCOUNTER 2024-10-13 15:08 | Emergency (ER) | payer OTHER, SELFPAY ==
--- NOTE | ~2024-10-13 | XR_ITS ---
EXAMINATION: XR LUMBOSACRAL SPINE CLINICAL INFORMATION: pain COMPARISON: 03/02/2024. TECHNIQUE: Three views of the lumbosacral spine. FINDINGS: No scoliosis. Normal lordosis. No acute fracture, compression deformity, or suspicious bone lesion. Grade 1 spondylolisthesis L5-S1 measuring 10 mm. There is a 2 mm retrolisthesis L3 on L4. Sagittal alignment otherwise anatomic Moderate to severe disc degeneration L3-4 and L4-5. Severe disc degeneration L5-S1 with sclerosis of the endplates and disc vacuum phenomenon. Mild degenerative facet changes spanning L3-S1. Prominent Schmorl's node superior endplate L1. Moderate degenerative changes bilateral SI joints. There is an IUD device within the central pelvis. No soft tissue abnormalities. XR/XR lumbar spine 2-3V IMPRESSION: 1. No acute findings lumbar spine. 2. Grade 1 spondylolisthesis L5-S1, with severe disc degeneration and sclerosis of the endplates. 3. Moderate degenerative spondylosis spanning L3-S1. Electronically signed by: Anurag Mosqueda MD 10/13/2024 04:50 PM EDT
[2024-10-13 15:42] VITALS: BP 184/120; PULSE 104; RESP 18; TEMP 36.7; O2SAT 99; BMI 51.2
--- NOTE | 2024-10-13 15:44 | ED.GENADULT ---
HPI - General Adult General Chief complaint: Back Pain/Injury Stated complaint: lower back pain Time Seen by Provider: 10/13/24 21:03 Source: patient and old records reviewed Mode of arrival: ambulatory Limitations: no limitations History of Present Illness ED Provider: DILAN BROWN narrative: 49 yo female with PMH of severe back pain, ADRYAN on CPAP, obesity, chronic back pain just treated here 10/09 with prednisone and morphine but no relief. She reports severe R back pain worse with movement for weeks that radiates down R leg. She has no IVDA history, AC therapy. She denies b/b incontinence or saddle anesthesia. She states she wants to try dexamethasone as it has helped her in the past. No new injuries or trauma. Did not follow up with PCP. MD complaint: back pain Onset (ago): week(s) (3) Location: back Radiation: extremity Severity: severe Quality: stabbing Pain Consistency: constant Relieving factors: rest Exacerbating factors: movement Associated symptoms: denies other symptoms Treatments prior to arrival: none Related Data Home Medications ?Medication ?Instructions ?Recorded ?Confirmed levonorgestrel 21 mcg/24 hr (up to intrauterine 11/14/21 02/26/24 8 years) 52 mg intrauterine device (Mirena) acetaminophen 650 mg 650 mg PO Q12H 02/26/24 02/26/24 tablet,extended release (Tylenol Arthritis Pain) Previous Rx's ?Medication ?Instructions ?Recorded oxycodone 5 mg tablet 5 mg PO Q6H PRN severe pain (scale 04/02/24 score 7-10) #10 tabs cyclobenzaprine 10 mg tablet 10 mg PO TID PRN muscle spasm #12 05/22/24 tabs cyclobenzaprine 5 mg tablet 5 mg PO TID PRN muscle spasm 3 05/22/24 days #10 tabs gabapentin 300 mg capsule 300 mg PO Q12H pain 30 days #60 08/19/24 caps diclofenac sodium 50 mg 50 mg PO BID PRN pain #60 tabs 09/05/24 tablet,delayed release lidocaine 5 % topical patch 1 patch topical DAILY pain 30 days 09/25/24 #30 ea cyclobenzaprine 10 mg tablet 10 mg PO TID PRN muscle spasm #20 10/09/24 tabs morphine 15 mg immediate release 15 mg PO Q6H PRN pain #12 tabs 10/09/24 tablet prednisone 20 mg tablet 40 mg (2 x 20 mg) PO DAILY 5 days 10/09/24 #10 tabs modafinil 100 mg tablet 100 mg PO QAM 30 days #30 tabs 10/11/24 hydrocodone 5 mg-acetaminophen 325 1 tab PO Q6H PRN pain #12 tabs 10/13/24 mg tablet Allergies Allergy/AdvReac Type Severity Reaction Status Date / Time No Known Allergies Allergy Verified 10/13/24 15:45 Review of Systems Review of Systems: Constitutional : No Weight loss, No Fever, No Chills, ENT/Mouth : No Hearing loss, No Ear Pain, No Nasal Congestion, No Sinus Pain, No Hoarseness, No sore throat, No Rhinorrhea, No Swallowing Difficulty Cardiovascular : No Chest Pain, No SOB Respiratory : No Cough, No Dyspnea Gastrointestinal : No Nausea, No Vomiting, No Diarrhea, No abdominal Pain, No Hematochezia, No Melena Genitourinary : No Dysuria, No Urinary Frequency, No Hematuria, No Urinary Incontinence, Musculoskeletal : positive back pain Skin : No Skin Lesions, No rash Neuro : No Weakness, No Numbness, No Paresthesias, no loss of bowel or bladder incontinence, no saddle anesthesia all other systems reviewed and are negative [facility] Past Medical History Attestation statement: The following information was validated with the patient. Source: old records reviewed Medical History History of urinary incontinence Acute lumbar radiculopathy Pes planus of both feet Adenomyomatosis of gallbladder Varicose veins of left lower extremity Impaired fasting glucose Vitamin D deficiency Obstructive sleep apnea treated with continuous positive airway pressure (CPAP) History of 2019 novel coronavirus disease (COVID-19) Cysts of both ovaries Surgical History No pertinent past surgical history Family History Family History Father Diabetes CVD (cardiovascular disease) Stroke Mother Mental health disorder Sister Anxiety Diabetes Substance abuse Mental health disorder Maternal Uncle Hypertension Social History Social History Housing: Apartment Alcohol intake: current Alcohol intake frequency: a few times a month Patient Tobacco Use Status: Never used Tobacco Tobacco use type: Cigarette Cigarettes Per Day: 1 Years Smoked: 0 Smoked in Last 30 Days: No e-Cigarette/Vaping Use: Never Used Use of substances other than those prescribed or required for medical reasons: No Advance Directives: No Advance Directives Information Provided: Yes Current occupational status: employed 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 Oriented X3. No acute distress. Eyes: Pupils equal, round and reactive to light. ENT: Pharynx normal. Neck: Normal inspection. Neck supple. CVS: Pulses normal. Respiratory: No respiratory distress. Abdomen: obese atraumatic Skin: Skin warm and dry. Normal skin color. Extremities: moving all extremities equally without issue Neuro: Oriented X 3. No motor deficit. No sensory deficit. CN2-12 intact ambulating okay, pain R side Course Course Course Narrative: This is a rapid medical exam performed by Patricia Gann PA-C. The patient is a 49-year-old female with a history of chronic back pain, morbid obesity, arthritis, who presents with ongoing low back pain. Pain right-sided with radiation down right lower extremity. Associated paresthesia. Denies weakness of lower extremity, urinary retention or bowel incontinence. Patient was seen here on the and prescribed a muscle relaxant, morphine and a steroid. Patient has not followed up with primary care. On exam, the patient is walking with a steady gait. She did not have imaging the other day, we will order an x-ray of the lumbar spine and screening labs. The patient is stable and can return to the waiting room pending her full medical assessment. Medications Administered Discontinued Medications Generic Name Dose Route Start Last Admin Trade Name Freq PRN Reason Stop Dose Admin Dexamethasone Sodium Phosphate 10 mg 10/13/24 21:20 10/13/24 21:25 Dexamethasone Sod Phosphate 10 Mg/Ml Vial IM 10/13/24 21:21 10 mg ONCE ONE Administration Medical Decision Making Medical Decision Making [facility] Narrative: 49 yo female with PMH of severe back pain, ADRYAN on CPAP, obesity, chronic back who has pain in back but no cauda equina symptoms and no risk factors or red flags on exam. She will be given IM dexamethasone and pain control she was instructed to follow up further as outpatient for management of this chronic issue. Differential Diagnosis Differential Diagnoses: The differential diagnosis associated with the presentation includes back pain, lumbar radiculopathy Admission/Observation Consideration of admission/observation: Escalation of care including admission/observation considered no cauda equina stable for DC Lab Data [facility] Lab Attestation statement: I reviewed the patient's lab results. 10/13/24 17:54 10/13/24 17:54 Labs: Lab Results 10/13/24 Range/Units 17:54 WBC 8.8 (4.8-10.8) X10*3/uL RBC 5.08 (4.20-5.50) X10*6/uL Hgb 15.0 (12.0-16.0) g/dl Hct 45.1 (37.0-47.0) % MCV 88.8 (80.0-98.0) fL MCH 29.5 (27.0-33.0) pg MCHC 33.3 (31.0-35.0) g/dl RDW 13.5 (11.0-16.0) % Plt Count 406 H (160-400) X10*3/uL MPV 9.0 L (9.4-12.3) fL Immature Gran % (Auto) 0.6 H (0.0-0.4) % Neut % (Auto) 81.1 H (45-73) % Lymph % (Auto) 14.4 L (20-40) % Avery % (Auto) 3.2 (2-11) % Eos % (Auto) 0.0 (0-4) % Baso % (Auto) 0.7 (0-2) % Lymph # (Auto) 1.3 (1.2-4.9) X10*3/uL Avery # (Auto) 0.3 (0.1-1.2) X10*3/uL Eos # (Auto) 0.0 (0.0-0.4) X10*3/uL Baso # (Auto) 0.1 (0.0-0.2) X10*3/uL Abs Immat Gran (auto) 0.05 H (0.00-0.03) X10*3/uL Absolute Neuts (auto) 7.2 (2.0-8.3) x10*3/uL Absolute Nucleated RBC 0.000 (0.0-0.012) X10*3/uL Nucleated RBC % (auto) 0.0 (0.0-0.2) /100WBC Sodium 137 (135-145) mmol/L Potassium 3.9 (3.3-5.1) mmol/L Chloride 104 (96-108) mmol/L Carbon Dioxide 22 (22-29) mmol/L Anion Gap 15 (12-20) BUN 11 (9-16) mg/dL Creatinine 0.71 (0.5-1.4) mg/dL Estim Creat Clear Calc 132.9 Estimated GFR > 60 Random Glucose 160 H (60-115) mg/dL Calcium 9.2 D (8.4-10.2) mg/dL Magnesium 2.2 (1.6-2.6) mg/dL Total Bilirubin 0.5 (0.0-1.0) mg/dL AST 30 (5-31) U/L ALT 49 H (0-31) U/L Alkaline Phosphatase 74 (39-117) U/L Total Protein 8.5 H (6.5-8.0) g/dL Albumin 4.5 (3.5-5.0) g/dL Beta HCG, Quant 4 mIU/mL Independent Interpretation I performed an independent interpretation of an: Plain X-Ray (no fracture) Radiology Impression Discussion of test interpretation with radiology: I have reviewed the radiologist's reading. External Record Review External record reviewed: Outpatient record Prescription Management I considered prescription management with: Pain Medication Discharge Plan Discharge Clinical Impression: Lumbar radiculopathy Patient Disposition: Home, Self-Care Instructions: Lumbar Radiculopathy (ED) Additional Instructions: return for loss of control of bowel or bladder, new numbness or weakness please follow up with your doctor as soon as possible Prescriptions: New hydrocodone-acetaminophen 5-325 mg tablet 1 tab PO Q6H PRN (Reason: pain) Qty: 12 0RF Rx Instructions: partial fill okay; Partial Fill upon patient request. No Action oxycodone 5 mg tablet 5 mg PO Q6H PRN (Reason: severe pain (scale score 7-10)) Qty: 10 0RF Rx Instructions: Partial Fill upon patient request. cyclobenzaprine 5 mg tablet 5 mg PO TID PRN (Reason: muscle spasm) 3 Days Qty: 10 0RF cyclobenzaprine 10 mg tablet 10 mg PO TID PRN (Reason: muscle spasm) Qty: 12 0RF gabapentin 300 mg capsule 300 mg PO Q12H 30 Days Qty: 60 0RF diclofenac sodium 50 mg tablet,delayed release (DR/EC) 50 mg PO BID PRN (Reason: pain) Qty: 60 0RF lidocaine 5 % adhesive patch,medicated 1 patch topical DAILY 30 Days Qty: 30 3RF modafinil 100 mg tablet 100 mg PO QAM 30 Days Qty: 30 1RF cyclobenzaprine 10 mg tablet 10 mg PO TID PRN (Reason: muscle spasm) Qty: 20 0RF prednisone 20 mg tablet 40 mg PO DAILY 5 Days Qty: 10 0RF morphine 15 mg tablet 15 mg PO Q6H PRN (Reason: pain) Qty: 12 0RF Rx Instructions: partial fill okay; Partial Fill upon patient request. Mirena 20 mcg/24 hours (7 yrs) 52 mg intrauterine device intrauterine acetaminophen [Tylenol Arthritis Pain] 650 mg tablet extended release 650 mg PO Q12H Stand Alone Forms: Work/School Release Interventions: ED Discharge Assessment Last Done: 10/13/24 21:37 Discharge Date/Time: 10/13/24 21:37 Print Language: Cameroonian
[2024-10-13 17:57] LABS: MANUAL DIFF FLAG NO
[2024-10-13 18:08] LABS: Basophils Absolute Auto 0.1 X10*3/uL (0.0-0.2); Basophils Percent Auto 0.7 % (0-2); Hematocrit 45.1 % (37.0-47.0); Imm Gran Abs Auto 0.05 X10*3/uL (0.00-0.03); Imm Gran Pct Auto 0.6 % (0.0-0.4); Lymphocytes Absolute Auto 1.3 X10*3/uL (1.2-4.9); Lymphocytes Percent Auto 14.4 % (20-40); Mean Corpuscular HGB Conc 33.3 g/dl (31.0-35.0); Mean Corpuscular Hemoglobin 29.5 pg (27.0-33.0); Mean Corpuscular Volume 88.8 fL (80.0-98.0); Monocytes Absolute Auto 0.3 X10*3/uL (0.1-1.2); Monocytes Percent Auto 3.2 % (2-11); Neutrophils Absolute Auto 7.2 x10*3/uL (2.0-8.3); Neutrophils Percent Auto 81.1 % (45-73); Platelet Count 406 X10*3/uL (160-400); Red Blood Count 5.08 X10*6/uL (4.20-5.50); Red Cell Distribution Width 13.5 % (11.0-16.0); White Blood Count 8.8 X10*3/uL (4.8-10.8)
[2024-10-13 18:34] LABS: Alanine Aminotransferase 49 U/L (0-31); Albumin Level 4.5 g/dL (3.5-5.0); Alkaline Phosphatase 74 U/L (39-117); Anion Gap 15 (12-20); Aspartate Amino Transferase 30 U/L (5-31); Bilirubin Total 0.5 mg/dL (0.0-1.0); Blood Urea Nitrogen 11 mg/dL (9-16); Calcium 9.2 mg/dL (8.4-10.2); Carbon Dioxide 22 mmol/L (22-29); Chloride 104 mmol/L (96-108); Creatinine Clr Calc Pharmacy 132.9; Estimated Glomerular Filt Rate > 60; Glucose Random 160 mg/dL (60-115); Magnesium 2.2 mg/dL (1.6-2.6); Potassium 3.9 mmol/L (3.3-5.1); Sodium 137 mmol/L (135-145); Total Protein 8.5 g/dL (6.5-8.0)
[2024-10-13 18:35] LABS: HCG Quantitative 4 mIU/mL
[2024-10-13 21:01] VITALS: BP 177/89; PULSE 100; RESP 18; TEMP 37.1; O2SAT 97
--- NOTE | 2024-10-13 21:21 | PC.NURSE ---
Pt ambulatory to [facility] for treatment. Assumed care of pt at this time. A&Ox3 skin pwd respirations even unlabored. Hx chronic back pain, reinjured back last week. Endorsing lower back pain radiating down right leg worse upon ambulation. Taking prescribed meds with little relief. Provider to chairside for primary eval. Plan for meds and dc home.
[2024-10-13] MEDS: dexAMETHasone sod phosphate 10 MG/ML VIAL IM (21:25)
[2024-10-13 21:37] VITALS: BP 177/89; PULSE 100; RESP 18; TEMP 37.1; O2SAT 97
== END 2024-10-13 21:37 | disposition home or self-care (01) ==
PROVIDERS: Physician Assistant Medical; Emergency Provider Emergency Medicine; PCP Internal Medicine
DX: M54.16 Radiculopathy, lumbar region (principal); M54.50 Low back pain, unspecified; R10.2 Pelvic and perineal pain; M79.604 Pain in right leg; Z79.899 Other long term (current) drug therapy
CPT/HCPCS: 36415; 72100; 80053; 83735; 84702; 85025; 96372; 99284; J1100

== ENCOUNTER → 2024-10-13 15:45 | Outpatient (BNV) | payer OTHER, SELFPAY | PROVIDERS: PCP Internal Medicine; Visit Provider Radiology Diagnostic Radiology | DX: M51.360 Other intervertebral disc degeneration, lumbar region with discogenic back pain only (principal) | CPT/HCPCS: 72100 ==

== ENCOUNTER 2024-10-16 10:56 | Outpatient (AMB) | payer OTHER, SELFPAY ==
--- NOTE | 2024-10-16 11:04 | MHC.OFFVIS ---
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 The patient?s condition initiated significant concern after she experienced acute exacerbations of radiculopathy severe enough to prompt visits to the emergency department on consecutive occasions within this month. These sudden symptomatic flares occurred upon rising from bed, suggesting a mechanical trigger. Her previous lumbar MRI was reviewed today and is noted below. Patient was evaluated by [facility] in March 2024 and was recommended with conservative treatments, including trial of therapeutic injection prior to surgical treatments. There is a background of obstructive sleep apnea, managed with CPAP therapy, and coinciding challenges due to morbid obesity categorizing her BMI at 50.9. 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 Interventional management has included physical therapy from which she was initially discharged with improvement, yet did not obtain long-term relief. She reports poor results with morphine and prednisone while favoring gabapentin, diclofenac, and oxycodone for alleviating symptoms. Patient's pain occurrences continue to challenge her daily functionality and quality of life without substantial long-term relief from current modalities. Denies any fever or chills, abdominal or groin pain, weakness, footdrop, bladder or bowel dysfunction, or saddle anesthesia. - Onset: Acute exacerbations, first noted on October 09 while getting out of bed. - Quality: Severe pain radiating to the right lateral thigh, with L5-S1 nerve distribution, not affecting other extremities. - Location: Right lateral thigh, right buttock, and sometimes the top of the right foot and heel. - Exacerbating Factors: Getting out of bed specifically triggers pain, lifting, twisting, extending backwards. - Relieving Factors: Adjustments with medications such as gabapentin, diclofenac, cyclobenzaprine and oxycodone provide partial relief. - Interference: Affects walking, sleeping, and general movement. - Affect: The patient reports substantial distress related to the intensity of pain and its interference with rest and daily activities. - Analgesia: Currently using gabapentin, lidocaine patches, diclofenac, and oxycodone; with gabapentin and diclofenac providing the most relief. - Adverse Effects: Morphine induced itching and poor reaction, prednisone ineffective, hesitation about using cyclobenzaprine due to prolonged effects. - Activities of Daily Living: Pain severely impacts her ability to walk, contributing to poor quality of sleep and difficulty in performing occupational duties. - Aberrant Drug Related Behaviors: None reported. The patient appears compliant with current medication regimens and dosing. PRIOR: Patient is a very pleasant 49-year-old female with past history of osteoarthritis, morbid obesity, ADRYAN with CPAP use, presents today for initial evaluation of acute low back pain with bilateral radiculopathy. Patient reports sudden onset of back pain on 03/02/24 when she turned over in bed to get out out of bed and could not walk. Patient was seen at our ER on 03/02/24 and was treated with oxycodone, dexamethasone and cyclobenzaprine with partial improvement. She had follow up for acute low back pain at [facility] on 03/15/24 and was referred to physical therapy. She reports low back pain has been chronic issue for her and she has been seeing chiropractor for this. Denies any recent adjustments or spine manipulations since onset of pain. Patient reports past history of intermittent you ran incontinence which she reports has worsened since recent back pain exacerbation. Back pain is localized to lower spine with radiation into her buttocks and into posterior thighs and calves and feet bilaterally with associated numbness, tingling and aching sensations. Patient reports radicular symptoms alternate each day, worse in the left leg today. Pain aggravated by activity, walking, prolonged sitting, bending forward or coughing and relieved by rest, changing position, heat and medication. 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 Patient completed lumbar spine x-ray and MRI as noted below. Denies previous spine surgery or injections. Denies any fever or chills, abdominal or groin pain, weakness, foot drop, bowel dysfunction or saddle anesthesia. Location: Lower back, radiates down bilateral legs posteriorly Duration: Chronic pain for 1 year, worsening since 03/02/24 Characteristics of symptom or complaint: Shooting, numbness, aching, tightness, throbbing, burning, cramping Aggravating or associated factors: Prolonged sitting, standing, bending Relieving factors: Movements, heat, diclofenac, oxycodone, oral steroids, cyclobenzaprine Treatment: Starting PT 04/23/24, [facility], [facility], MRI, xrays [facility] Medical History History of urinary incontinence Acute lumbar radiculopathy Pes planus of both feet Adenomyomatosis of gallbladder Varicose veins of left lower extremity Impaired fasting glucose Vitamin D deficiency Obstructive sleep apnea treated with continuous positive airway pressure (CPAP) History of 2019 novel coronavirus disease (COVID-19) Cysts of both ovaries Surgical History No pertinent past surgical history Family History Father Diabetes CVD (cardiovascular disease) Stroke Mother Mental health disorder Sister Anxiety Diabetes Substance abuse Mental health disorder Maternal Uncle Hypertension Social History Housing: Apartment Alcohol intake: current Alcohol intake frequency: a few times a month Patient Tobacco Use Status: Never used Tobacco Tobacco use type: Cigarette Cigarettes Per Day: 1 Years Smoked: 0 e-Cigarette/Vaping Use: Never Used Current occupational status: employed 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 Moderate distress due to back and right leg pain. Alert and oriented. Mood and affect appropriate. Follows and participates in conversation appropriately. Respiratory effort is unlabored. No cough. Able to transition from sit to stand unassisted. Ambulates with bilaterally normal heel strike and toe off. General: Yes no CVA tenderness Back/Spine/Pelvis Other: Patient is able to walk and stand on heels and tip toes with no difficulties demonstrating good motor tone. No limping. Difficulty arising from her seated position and ambulating steady without provoking discomfort. Can flex forward to 85-90 degrees, able to touch the floor without pain and extend to 5-10 degrees before experiencing lumbar pain, worse pain with lumbar extension and axial rotations. Demonstrates 5/5 strength of quadriceps bilaterally as well as flexion/dorsiflexion of bilateral feet against resistance. 2+ pedal pulses bilaterally. Seated straight leg rise with dorsiflexion positive on the right. +1 patellar and +1 achilles reflexes bilaterally. Facet loading test positive bilaterally. David?s and Stinchfield tests are negative bilaterally. No groin pain with I/E hip rotations. Valsalva maneuver is positive. Back: no CVA tenderness Cervical Spine: cervical ROM normal and No Cervical spine tenderness Thoracic/Lumbar Spine: thoracic and lumbar spine normal to inspection, No Thoracic/lumbar spine scar(s), Lasegue's sign positive bilateral and localized, pain with thoraco-lumbar ROM, paraspinal muscle tenderness, No thoracic spinal tenderness and lumbar spinal tenderness (L4-S1) Pelvis: buttock tenderness on the right and sciatic notch tenderness on the right Sacroiliac joints: bilaterally tender to palpation Neuro General: moves all extremities, no focal motor deficits and CN's II-XI intact bilaterally Extrem General: Yes capillary refill normal, Yes no clubbing, cyanosis or edema and Yes no calf tenderness Results Reviewed Results Reviewed: MR SPINE LUMBAR without CONTRAST 03/27/24 at [facility] INDICATION: Low back pain radiating into hips and legs. Incontinence. TECHNIQUE: Unenhanced multiplanar, multisequence MR imaging of the lumbar spine. COMPARISON: None. FINDINGS: Normal lumbar alignment is demonstrated. Vertebral heights are well maintained. Degenerative endplate changes are seen at L5-S1. There is T2 hyperintensity within the L5 vertebral body Schmorl''s node is seen at the superior endplate of L1, T12, T11, L2, and the inferior endplate of L5. Conus medullaris is unremarkable. The conus terminates at L1-2. Paraspinal soft tissues and visualized portions of the abdomen and pelvis are unremarkable. At L1-2 there is a posterior right paracentral disc bulge effacing the ventral thecal sac. Mild right neural foraminal narrowing is seen. No central canal stenosis is identified. Bilateral facet hypertrophy is seen. At L2-3 there is a broad-based left paracentral disc protrusion. There is mild right and mild to moderate left neural foraminal narrowing. There is effacement of the ventral thecal sac. Bilateral facet hypertrophy is seen. At L3-4 there is a right-sided disc protrusion with moderate to severe right and mild left neural foraminal narrowing. No central canal stenosis is identified. Bilateral facet hypertrophy is seen. At L4-5 there is bilateral facet hypertrophy. There is mild right and mild to moderate left neural foraminal narrowing. No central canal stenosis is seen. No central canal stenosis is noted. At L5-S1 there is a central disc extrusion with severe bilateral neural foraminal narrowing. There is effacement of the ventral thecal sac and bilateral facet hypertrophy. Given the extent of degenerative change, the elevated T2 and STIR signal in the L5 vertebral body likely represents ongoing Modic type change. IMPRESSION: 1. Degenerative endplate changes are seen at L5-S1. There is a central disc extrusion with severe bilateral neural foraminal narrowing at this level. Elevated T2 and STIR signal is also seen within the L5 vertebral body which is likely related to ongoing degenerative change. However, if there is clinical suspicion for osteomyelitis, post contrast imaging can be obtained. 2. At L4-5 there is mild to moderate left and mild right neural foraminal narrowing. 3. At L3-4 there is a right-sided disc protrusion with moderate to severe right and mild left neural foraminal narrowing. 4. At L2-3 there is a broad-based left paracentral disc protrusion. Mild to moderate left and mild right neural foraminal narrowing is seen. 5. At L1-2 there is a right paracentral disc bulge. Mild right neural foraminal narrowing is seen. XR LUMBOSACRAL SPINE 10/13/24 CLINICAL INFORMATION: pain COMPARISON: 03/02/2024. FINDINGS: No scoliosis. Normal lordosis. No acute fracture, compression deformity, or suspicious bone lesion. Grade 1 spondylolisthesis L5-S1 measuring 10 mm. There is a 2 mm retrolisthesis L3 on L4. Sagittal alignment otherwise anatomic Moderate to severe disc degeneration L3-4 and L4-5. Severe disc degeneration L5-S1 with sclerosis of the endplates and disc vacuum phenomenon. Mild degenerative facet changes spanning L3-S1. Prominent Schmorl's node superior endplate L1. Moderate degenerative changes bilateral SI joints. There is an IUD device within the central pelvis. No soft tissue abnormalities. IMPRESSION: 1. No acute findings lumbar spine. 2. Grade 1 spondylolisthesis L5-S1, with severe disc degeneration and sclerosis of the endplates. 3. Moderate degenerative spondylosis spanning L3-S1. Assessment & Plan Assessment & Plan (1) Acute lumbar radiculopathy: Code(s): M54.16 - Radiculopathy, lumbar region Category: Medical (2) Lumbosacral disc herniation: Code(s): M51.27 - Other intervertebral disc displacement, lumbosacral region Category: Medical (3) Lumbar degenerative disc disease: Code(s): M51.36 - Other intervertebral disc degeneration, lumbar region Category: Medical (4) Vertebrogenic low back pain: Code(s): M54.51 - Vertebrogenic low back pain Category: Medical (5) Spondylolisthesis, lumbar region: Code(s): M43.16 - Spondylolisthesis, lumbar region Category: Medical Plan We are arranging for the patient to undergo a right L5-S1 transforaminal epidural steroid injection with local and fluoroscopy, pending insurance approval for right sided radiculopathy. Meanwhile, an increase in her gabapentin dosing is initiated to counteract ongoing neuropathic symptoms, alongside current pain management practices with lidocaine patches, NSAIDs and short term of opioids which she received at [facility] on 10/09/24 and 10/13/24. Discontinuation of NSAIDs will be necessary prior to the ANAID injection. Opioid use is minimized due to negative side effects, supplemented by optimizing her sleep apnea management and advising caution due to morbid obesity-related risks. The efficacy of pain relief and functional recovery will be closely monitored following the procedure. All questions and concerns have been answered and patient agreed with the treatment plan. Follow up after injection and sooner as needed. Patient was informed and verbally consented to the use of an ambient scribe for clinic note documentation during this visit. Medications: Changed From gabapentin 300 mg PO Q12H 30 days 60 caps 0RF pain M51.27 - Other intervertebral disc displacement, lumbosacral region, M51.36 - Other intervertebral disc degeneration, lumbar region, M54.16 - Radiculopathy, lumbar region To gabapentin 300 mg PO Q8H 30 days 90 caps 0RF pain M51.27 - Other intervertebral disc displacement, lumbosacral region, M51.36 - Other intervertebral disc degeneration, lumbar region, M54.16 - Radiculopathy, lumbar region Refilled lidocaine 5% 1 patch topical DAILY 30 days 30 ea 3RF pain M51.27 - Other intervertebral disc displacement, lumbosacral region, M51.36 - Other intervertebral disc degeneration, lumbar region, M54.50 - Low back pain, unspecified Patient Instructions: I discussed with the patient the necessity of a right L5-S1 transforaminal epidural steroid injection to manage her radiculopathy, detailing potential benefits of significant pain relief lasting for potentially three months with repeat injections feasible. The patient was instructed to halt NSAID use pre-procedure and advised of benefits and possible risks and procedure expectations. Pain management will concurrently include adjusting gabapentin doses, with strict instructions regarding the non-simultaneous use of muscle relaxants or opioids, considering associated risks due to morbid obesity and sleep apnea. I explained the multifactorial management approach surrounding her chronic pain and associated conditions, emphasizing weight management and monitoring of pain responses following intervention. - Await insurance approval for a scheduled epidural steroid injection. - Discontinue diclofenac and NSAIDs 48 hours prior to the procedure. - Increase gabapentin to 300 mg three times daily as instructed. - Continue using lidocaine patches and Tylenol as needed. - Avoid mixing gabapentin, muscle relaxants, and opioids; allow 2-4 hours between doses. - Maintain CPAP therapy for sleep apnea and adhere to weight management strategies. - Report any new symptoms or adverse medication effects promptly. Coding Level of Care Code Est Pt Level 4 (74383) Complex EM visit Add On G2211 Diagnoses Acute lumbar radiculopathy M54.16 Lumbosacral disc herniation M51.27 Lumbar degenerative disc disease M51.36 Vertebrogenic low back pain M54.51 Spondylolisthesis, lumbar region M43.16
[2024-10-16 11:09] VITALS: BP 206/101; PULSE 99; O2SAT 98; BMI 50.9
[2024-10-16 11:10] VITALS: BP 216/117
== END 2024-10-16 11:32 | disposition home or self-care (01) ==
LOC: HO.PMC 10:57
PROVIDERS: PCP Internal Medicine; Visit Provider Nurse Practitioner Family
DX: M54.16 Radiculopathy, lumbar region (principal); M51.27 Other intervertebral disc displacement, lumbosacral region; M51.369 Other intervertebral disc degeneration, lumbar region without mention of lumbar back pain or lower extremity pain; M54.51 Vertebrogenic low back pain; M43.16 Spondylolisthesis, lumbar region
CPT/HCPCS: 99214

== ENCOUNTER 2024-11-05 10:50 | Outpatient (AMB) | payer OTHER, SELFPAY ==
--- NOTE | 2024-11-05 10:52 | A.OFFPC_ITS ---
Vital Signs 11/05/24 10:58 Height 5 ft 4 in Weight 302 lb BMI 51.8 BP 130/88 Blood Pressure Location Lt brachial Position Sitting Respiration 17 Pulse 94 Pulse Source Pulse Oximeter Temp 98.0 F Temp Source Oral Pulse Oximetry (%) 96 Oxygen Delivery Method Room Air Intake Visit Reasons: ED F/u back pain Intake Note: Pt is here today f/u ER re: lower back pain Allergies No Known Allergies Allergy (Verified 11/10/24 01:51) Medication List - Last Reconciled 11/10/24 by Carina Beck MD acetaminophen ER (Tylenol Arthritis Pain) 650 mg PO Q12H diclofenac sodium 50 mg PO BID PRN gabapentin 300 mg PO Q8H 30 days levonorgestrel (Mirena) intrauterine lidocaine 5% 1 patch topical DAILY 30 days modafinil 100 mg PO QAM 30 days Tobacco use date assessed: 11/05/24 Dental Screening Dental Screen Date: 11/05/24 Did you have a dental visit in the last 12 months?: Yes Did you have a dental problem in the last 6 months where you did not have access to dental care?: No Was dental information given to patient?: Patient has dentist HPI ED F/u back pain HPI Details 49-year-old lady here today for follow-u p after recent visit at the ER for complaining of low back pain. Patient states that it hurts for her to go up and down stairs or walk for extended periods of time. She is currently being seen at pain management clinic who is considering ANAID injections depending on her insurance. He is also taking gabapentin which was increased by pain management to 300 mg every 8 hours and advised to apply lidocaine patch to affected area to apply lidocaine patch to affected area. She also sees a chiropractor and gets massages which has helped a lot in relieving the pain. [facility] Medical History (Updated 11/05/24 @ 11:36 by Carina Beck MD) History of urinary incontinence Acute lumbar radiculopathy Pes planus of both feet Adenomyomatosis of gallbladder Varicose veins of left lower extremity Impaired fasting glucose Vitamin D deficiency Obstructive sleep apnea treated with continuous positive airway pressure (CPAP) History of 2019 novel coronavirus disease (COVID-19) Cysts of both ovaries Surgical History (Updated 11/06/24 @ 11:35 by Telma Martinez CMA) Hx of adenoidectomy Family History Father Diabetes CVD (cardiovascular disease) Stroke Mother Mental health disorder Sister Anxiety Diabetes Substance abuse Mental health disorder Maternal Uncle Hypertension Social History (Updated 11/06/24 @ 11:35 by Telma Martinez CMA) Housing: Apartment Alcohol intake: current Alcohol intake frequency: holidays/special occasions only Patient Tobacco Use Status: Never used Tobacco Years Smoked: 0 e-Cigarette/Vaping Use: Never Used Current occupational status: employed 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 1. Little interest or pleasure in doing things: not at all 2. Feeling down, depressed, or hopeless: not at all 3. Trouble falling or staying asleep, or sleeping too much: not at all 4. Feeling tired or having little energy: not at all 5. Poor appetite or overeating: not at all 6. Feeling bad about yourself - or that you are a failure or have let yourself or your family down: not at all 7. Trouble concentrating on things, such as reading the newspaper or watching television: not at all 8. Moving or speaking so slowly that other people could have noticed. Or the opposite - being so fidgety or restless that you have been moving around a lot more than usual: not at all 9. Thoughts that you would be better off or of hurting yourself in some way: not at all Total score: 0 Depression Screening Interpretation: Negative Depression Screening Done: Yes 10158 - PHQ-9 Billing: Yes Source: Developed by Drs. Jarek Mclean, Cecile Caban, Usman Castillo and colleagues, with an educational marixa from [employer]. Thrive Questionnaire Date Thrive assessed: 11/05/24 I am a: Patient What is your living situation today?: I have a steady place to live Within the past 12 months, did the food you bought not last and you didn't have the money to get more?: Never true Within the past 12 months, did you worry whether your food would run out before you got money to buy more?: Never true Do you have trouble paying for medicines?: No Do you have trouble getting transportation to medical appointments?: No Do you have trouble paying your heating and electricity bill?: No Do you have trouble taking care of your child, family member or friend?: No Do you have trouble with day-to-day activities such as bathing, preparing meals, shopping, managing finances, etc.?: No Are you currently unemployed and looking for a job?: No Are you interested in more education?: No THRIVE Score: 0 AUDIT C Alcohol Use Questionnaire (AUDIT-C) 1. How often do you have a drink containing alcohol?: Never Total Score: 0 TAMIKA-7 AMB Questionnaire TAMIKA-7 Date TAMIKA - 7 assessed: 11/05/24 Feeling nervous, anxious, or on edge: 0 = Not at all Not being able to stop or control worryin = Not at all Worrying too much about different things: 0 = Not at all Trouble relaxin = Not at all Being so restless that it is hard to sit still: 0 = Not at all Becoming easily annoyed or irritable: 0 = Not at all Feeling afraid as if something awful might happen: 0 = Not at all Total TAMIKA-7 score (0-4 normal; 5-9 mild; 10-14 moderate; 15-21 severe): 0 Source: Developed by Drs. Jarek Mclean, Cecile Caban, Usman Castillo and colleagues, with an educational marixa from [employer]. Review of Systems Const All systems reviewed & are unremarkable except as noted in HPI and below Physical exam (Primary Care) Vital Signs: Last Vital Signs Temp 98.0 F 11/05/24 10:58 Pulse 94 11/05/24 10:58 Resp 17 11/05/24 10:58 BP 130/88 11/05/24 10:58 Pulse Ox 96 11/05/24 10:58 Oxygen Delivery Method Room Air 11/05/24 10:58 BMI result Body Mass Index 51.8 Tobacco/Smoking Status: Tobacco use Status Tobacco use date assessed 11/05/24 11/05/24 11:03 Patient Tobacco Use Status Never used Tobacco 11/05/24 10:53 Tobacco use type Cigarette 11/05/24 10:53 e-Cigarette/Vaping Use Never Used 11/05/24 10:53 PHQ-9: PHQ-9 Score PHQ-9: Total score 0 11/10/24 01:52 Depression Screening Interpretation: Negative Thrive Assessment: Date of Thrive Assessment Date Thrive assessed 11/05/24 11/05/24 11:36 Const General: comfortable, no acute distress, alert and Physically active Nutritional Appearance: obese morbidly obese Orientation/consciousness: patient oriented x3 HENMT Face and sinus: Yes face symmetric Neck Other: Supple, no lymphadenopathy, thyroid gland nonpalpable Resp Auscultation: clear to auscultation bilaterally Cardio Other: S1-S2 present regular rate and rhythm GI Other: Normal bowel sounds obese, soft, slight discomfort on palpation over right upper quadrant, with no rebound or guarding Back/Spine/Pelvis Thoracic/Lumbar Spine: straight leg raise negative bilaterally and paraspinal muscle tenderness bilaterally in the mid lumbar Skin General skin exam: no rashes or lesions noted Neuro General: patient oriented x3, gait normal, tone normal, moves all extremities, Normal light touch and pain sensation, no focal motor deficits, CN's II-XI intact bilaterally and normal sensation to monofilament Extrem Other: crepitus right knee, flat feet General: Yes no joint enlargement, Yes no pedal edema and Yes normal gait Psych Appearance: grossly normal Mental Status: mental status grossly normal Speech and movement: Normal speech and movement present Affect: normal affect Coding Level of Care Code Est Pt Level 4 (28776) Diagnoses Lumbosacral disc herniation M51.27 Spondylolisthesis, lumbar region M43.16 Impaired fasting glucose R73.01 Vitamin D deficiency E55.9 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 Awaiting approval by insurance for AANID injections. Patient requesting referral for physical therapy in the meantime (2) Spondylolisthesis, lumbar region: Code(s): M43.16 - Spondylolisthesis, lumbar region Category: Medical Plan: Followed by pain management, continued on gabapentin 300 mg increase to 1 every 8 hours for pain and advised to apply lidocaine patch to affected area in lower back. (3) Impaired fasting glucose: Code(s): R73.01 - Impaired fasting glucose Category: Medical Plan: Your previous fasting blood sugars were elevated above 100 mg/dL. Impaired glucose metabolism increases the risk for developing diabetes mellitus type 2, as well as heart attack and stroke later on. 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, M51.36 - Other intervertebral disc degeneration, lumbar region, R73.01 - Impaired fasting glucose, Z01.84 - Encounter for antibody response examination, Z11.1 - Encounter for screening for respiratory tuberculosis, Z68.42 - Body mass index [BMI] 45.0-49.9, adult T Spot TB 11/22/24 E55.9 - Vitamin D deficiency, unspecified, E66.01 - Morbid (severe) obesity due to excess calories, 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, M51.36 - Other intervertebral disc degeneration, lumbar region, R73.01 - Impaired fasting glucose, Z01.84 - Encounter for antibody response examination, Z11.1 - Encounter for screening for respiratory tuberculosis, Z68.42 - Body mass index [BMI] 45.0-49.9, adult Aspartate Amino Transferase 11/22/24 E55.9 - Vitamin D deficiency, unspecified, E66.01 - Morbid (severe) obesity due to excess calories, 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, M51.36 - Other intervertebral disc degeneration, lumbar region, R73.01 - Impaired fasting glucose, Z01.84 - Encounter for antibody response examination, Z11.1 - Encounter for screening for respiratory tuberculosis, Z68.42 - Body mass index [BMI] 45.0-49.9, adult Alanine Aminotransferase 11/22/24 E55.9 - Vitamin D deficiency, unspecified, E66.01 - Morbid (severe) obesity due to excess calories, 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, M51.36 - Other intervertebral disc degeneration, lumbar region, R73.01 - Impaired fasting glucose, Z01.84 - Encounter for antibody response examination, Z11.1 - Encounter for screening for respiratory tuberculosis, Z68.42 - Body mass index [BMI] 45.0-49.9, adult Vitamin B12 and Folate 11/22/24 E55.9 - Vitamin D deficiency, unspecified, E66.01 - Morbid (severe) obesity due to excess calories, 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, M51.36 - Other intervertebral disc degeneration, lumbar region, R73.01 - Impaired fasting glucose, Z01.84 - Encounter for antibody response examination, Z11.1 - Encounter for screening for respiratory tuberculosis, Z68.42 - Body mass index [BMI] 45.0-49.9, adult PT Evaluation and Treatment 11/05/24 M43.16 - Spondylolisthesis, lumbar region, M51.27 - Other intervertebral disc displacement, lumbosacral region, M51.36 - Other intervertebral disc degeneration, lumbar region Lipid Panel 11/22/24 E55.9 - Vitamin D deficiency, unspecified, E66.01 - Morbid (severe) obesity due to excess calories, 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, M51.36 - Other intervertebral disc degeneration, lumbar region, R73.01 - Impaired fasting glucose, Z01.84 - Encounter for antibody response examination, Z11.1 - Encounter for screening for respiratory tuberculosis, Z68.42 - Body mass index [BMI] 45.0-49.9, adult Hemoglobin A1c 11/22/24 E55.9 - Vitamin D deficiency, unspecified, E66.01 - Morbid (severe) obesity due to excess calories, 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, M51.36 - Other intervertebral disc degeneration, lumbar region, R73.01 - Impaired fasting glucose, Z01.84 - Encounter for antibody response examination, Z11.1 - Encounter for screening for respiratory tuberculosis, Z68.42 - Body mass index [BMI] 45.0-49.9, adult Glucose Fasting 11/22/24 E55.9 - Vitamin D deficiency, unspecified, E66.01 - Morbid (severe) obesity due to excess calories, 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, M51.36 - Other intervertebral disc degeneration, lumbar region, R73.01 - Impaired fasting glucose, Z01.84 - Encounter for antibody response examination, Z11.1 - Encounter for screening for respiratory tuberculosis, Z68.42 - Body mass index [BMI] 45.0-49.9, adult Vitamin D 25-OH Total 11/22/24 E55.9 - Vitamin D deficiency, unspecified, E66.01 - Morbid (severe) obesity due to excess calories, 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, M51.36 - Other intervertebral disc degeneration, lumbar region, R73.01 - Impaired fasting glucose, Z01.84 - Encounter for antibody response examination, Z11.1 - Encounter for screening for respiratory tuberculosis, Z68.42 - Body mass index [BMI] 45.0-49.9, adult Vitamin B6 11/22/24 E55.9 - Vitamin D deficiency, unspecified, E66.01 - Morbid (severe) obesity due to excess calories, 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
[2024-11-05 10:58] VITALS: BP 130/88; PULSE 94; RESP 17; TEMP 36.7; O2SAT 96; BMI 51.8
--- OUTSIDE RECORDS SUMMARY | 2024-11-05 12:52 | XMS_ITS | Patient Health Record ---
Author Organization [facility] Address [address] [place] [address] Care Team Providers Care Crna Name Role Phone Kiran LAZCANO, Carina Terry Primary Care Provider Un available Black, Britt Unavailable [phone] Allergies No Known Allergies Reason For Referral [...] primary osteoarthritis of the ankle and/or foot ([id number]) Primary osteoarthritis, right ankle and foot (M19.071) Active confirmed Problem Localized, primary osteoarthritis of the ankle and/or foot (469724793) Primary osteoarthritis, left ankle and foot (M19.072) Active confirmed Problem Acquired hammer toe of right foot ([id number] ) Other hammer toe(s) (acquired), right foot (M20.41) Active confirmed Problem [id number] Acquired hallux interphalangeus of left foot (M20.12) Active confirmed Problem [id number] Acquired hallux interphalangeus of right foot (M20.11) Active confirmed Plan Of Treatment No Information Insurance Providers Payer Name Payer Address Payer Phone Subscriber Number Group Number Insured Name Patient Relationship to Insured Coverage Start Date Coverage End Date [facility] [address] [place] [address] [id number] Gilma Munson Self - patient is the insured Medical (General) History Medical History History ICD Code Anxiety Shingles Cellulitis Broken bones covid-19 Depression Chicken pox Surgical History Surgery Date(Month/Year) Endometriosis Cyst Surgery
== END 2024-11-05 11:31 | disposition home or self-care (01) ==
LOC: HO.HMCC 10:50
PROVIDERS: PCP Internal Medicine; Visit Provider Internal Medicine
DX: M51.27 Other intervertebral disc displacement, lumbosacral region (principal); M43.16 Spondylolisthesis, lumbar region; R73.01 Impaired fasting glucose; E55.9 Vitamin D deficiency, unspecified; E67.2 Megavitamin-B6 syndrome

== ENCOUNTER → 2024-11-05 10:50 | Outpatient (BNVA) | payer OTHER, SELFPAY | PROVIDERS: PCP Internal Medicine; Visit Provider Internal Medicine | DX: M51.27 Other intervertebral disc displacement, lumbosacral region (principal); M43.16 Spondylolisthesis, lumbar region; R73.01 Impaired fasting glucose; E55.9 Vitamin D deficiency, unspecified; E67.2 Megavitamin-B6 syndrome | CPT/HCPCS: 96127 ==

== ENCOUNTER 2024-11-21 08:23 | Outpatient (AMB) | payer OTHER, SELFPAY ==
--- OUTSIDE RECORDS SUMMARY | 2024-11-21 08:43 | XMS_ITS | Patient Health Record ---
Author Organization [facility] Address [address] [place] [address] Care Team Providers Care Graphic Arts Instructor Name Role Phone Kiran LAZCANO, Carina Terry Primary Care Provider Un available Black, Britt Unavailable [phone] Allergies No Known Allergies Reason For Referral [...] primary osteoarthritis of the ankle and/or foot ([id number]) Primary osteoarthritis, right ankle and foot (M19.071) Active confirmed Problem Localized, primary osteoarthritis of the ankle and/or foot (650369791) Primary osteoarthritis, left ankle and foot (M19.072) Active confirmed Problem Acquired hammer toe of right foot (8056260643892727 ) Other hammer toe(s) (acquired), right foot (M20.41) Active confirmed Problem 977839434 Acquired hallux interphalangeus of left foot (M20.12) Active confirmed Problem [id number] Acquired hallux interphalangeus of right foot (M20.11) Active confirmed Plan Of Treatment No Information Insurance Providers Payer Name Payer Address Payer Phone Subscriber Number Group Number Insured Name Patient Relationship to Insured Coverage Start Date Coverage End Date [facility] [address] [place] [address] [id number] Gilma Munson Self - patient is the insured Medical (General) History Medical History History ICD Code Anxiety Shingles Cellulitis Broken bones covid-19 Depression Chicken pox Surgical History Surgery Date(Month/Year) Endometriosis Cyst Surgery
--- NOTE | 2024-11-21 10:10 | A.OFFVIS_ITS ---
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 [facility]: Details: Start time: 10.17am, End time: 11.02am ?I spent 40 minutes speaking with the patient on the phone plus an additional 5 minutes reviewing and updating records for a total of 45 minutes HPI Comments Details: Previous weight loss efforts: self diet and exercise Work days: 9.30am - 3pm, Off days: 12am to 8am Breakfast: skips Lunch: skips Dinner: 7pm (chicken and broccoli) Snacks: Work days: 3-4 overnight (peanut butter sandwich, yogurt, another meal), off days: before and after dinner (toast) Exercise: none Beverages: Coffee: (2 cups/day with sugar and creamer), tea: (green tea x3-4/wk with calories), soda: occasionally, juice: none, ETOH: 2/month (1-2 Margaritas) [facility] Medical History (Updated 11/05/24 @ 11:36 by Carina Beck MD) History of urinary incontinence Acute lumbar radiculopathy Pes planus of both feet Adenomyomatosis of gallbladder Varicose veins of left lower extremity Impaired fasting glucose Vitamin D deficiency Obstructive sleep apnea treated with continuous positive airway pressure (CPAP) History of 2019 novel coronavirus disease (COVID-19) Cysts of both ovaries Surgical History (Updated 11/06/24 @ 11:35 by Telma Martinez CMA) Hx of adenoidectomy Family History Father Diabetes CVD (cardiovascular disease) Stroke Mother Mental health disorder Sister Anxiety Diabetes Substance abuse Mental health disorder Maternal Uncle Hypertension Social History (Updated 11/06/24 @ 11:35 by Telma Martinez CMA) Housing: Apartment Alcohol intake: current Alcohol intake frequency: holidays/special occasions only Patient Tobacco Use Status: Never used Tobacco Years Smoked: 0 e-Cigarette/Vaping Use: Never Used Current occupational status: employed 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 @ [employer] Cognitive needs: No Hearing needs: No Vision needs: No Telehealth Telehealth Telehealth Platform: Telephone Location of provider rendering services: practice address Location of patient: address on file Patient Identification confirmed using: Name, : Yes Telehealth method: voice only Patient verbally consented to treatment: Yes Patient verbally consented to billing insurance company: Yes Patient informed of any privacy concerns related to visit: Yes Minutes spent on Phone/Video with Pt.: 45 Assessment & Plan Assessment & Plan (1) Morbid obesity with BMI of 50.0-59.9, adult: Code(s): E66.01 - Morbid (severe) obesity due to excess calories; Z68.43 - Body mass index [BMI] 50.0-59.9, adult Category: Medical Plan: 1. We discussed in detail the available therapeutic options: 1) our lifestyle intervention program that has an average weight loss of 10% in 3 months.? 2) Weight loss medications. 3) We also discussed about the lap sleeve gastrectomy. I emphasized the importance of close follow-up, adherence to instructions and good communication. The surgery does not replace the need to change your lifestlyle which is the cause of the obesity problem. The surgery provides the motivation to try again to change your lifestyle, it reduces the appetite and make the transition to a better lifestyle easier and doubles the amount of weight you would lose compared to doing the lifestyle change without the surger y. You will need to be on a liquid diet with protein shakes for 2 weeks before surgery to maximize weight loss and boost your nutritional status to recover better from surgery and also for the first two weeks after surgery to let the stomach heal before we introduce other foods. After the first 2 weeks we will introduce protein bars and soft foods like scrambled eggs, cottage cheese and yogurt and after the 6th week will introduce meat, fish and cooked vegetables in small amounts. Over time you should be able to eat everything in small amounts. Side effects like nausea, vomiting, heartburn or abdominal pain are not common in the practice unless you are not following in the practice. This operation requires lifetime commitment to following in our practice and communication with me. You will much less weight and experience side effects if you don?t communicate or not following in the practice. Complications are rare and in our practice is about 1/10 of the national average. The patient prefers to try the anti-obesity medications. 2. The patient has super obesity with a BMI over 50 and sleep apnea on CPAP. Start the Zepbound when you get your body composition scale once a week. Use a calorie-counting gray to track your daily calories to create a calorie deficit with a target of consuming 9947-4725 calories per day. We discussed the potential side effects of Zepbound such as nausea, vomiting, abdominal pain, diarrhea and constipation and you will need to contact me if any of these symptoms occur or for any other new symptom you may experience. 2. You will receive a link of our software gray to generate an individualized nutritional and exercise plan specific for you. Please send me a screenshot of the plans you will generate Meal to include lean meat (beef, fish, pork, turkey, chicken), or english yogurt, or egg whites, or beans with a salad with olive oil and fruits (berries, pears, apples, kiwi). Avoid salt, breads, potatoes, rice, pasta, desserts. ?3. If you choose shakes, each shake would be drunk slowly, like coffee in a period of 2 hours. ?4. If you choose bars, cut each bar in 4 pieces and eat each piece in 30min ?to make each bar last 2 hours. ?5. I emphasized the importance of measuring accurately the food portion and measure it when serving the food in plate ?6. The meal portions include a specific number of forks of meat and salad. You always eat the meat portion but you can replace up to half of salad/vegetables portion with rice, potatoes or pasta, or a fruit ?if you like. The less you do it the better weight loss will be. ?7. One full-size fork is what it can be scooped on the fork without falling aside and not what can be bit with the fork. Use regular forks like those you find in a typical restaurant. ?8.? Please buy the body composition scale we discussed and send me weight measurements as soon as possible and then once a week. Always include your diet and exercise plan. 9. The best choice would be to purchase a stationary bike, elliptical or treadmill at home that can track calories. You can create and exercise plan with the RightBMI gray. ?10.?It is important of avoiding and for at least 18 months postoperatively and has been discussed at the infosession. ?11. Goal is to lose at least 1.5-2lbs per week ?12. Goal to lose at least 10% of your weight, which is about 30lbs. Minimum weight goal: 270lbs next 3 months 13. Please follow the diet plan exactly without any change. If you don't like something about the plan or you feel hungry you need to communicate with me so I can help you revise the plan. You should not change the plan yourself. Medications: New tirzepatide (weight loss) (Zepbound) for 4 weeks 2.5 mg (0.5 mL) subcut QWEEK 2 mL 0RF E66.01 - Morbid (severe) obesity due to excess calories, G47.33 - Obstructive sleep apnea (adult) (pediatric), Z68.43 - Body mass index [BMI] 50.0-59.9, adult, Z99.89 - Dependence on other enabling machines and devices
== END 2024-11-21 11:02 | disposition home or self-care (01) ==
LOC: HO.HBS 08:23
PROVIDERS: PCP Internal Medicine; Visit Provider Surgery
DX: E66.01 Morbid (severe) obesity due to excess calories (principal); Z68.43 Body mass index [BMI] 50.0-59.9, adult
CPT/HCPCS: 99204

== ENCOUNTER → 2024-11-24 09:28 | Outpatient (BNVA) | payer SELFPAY | PROVIDERS: PCP Internal Medicine | DX: Z02.89 Encounter for other administrative examinations (principal) ==

== ENCOUNTER 2024-11-26 07:46 | Outpatient (REF) | payer OTHER, SELFPAY ==
--- OUTSIDE RECORDS SUMMARY | 2024-11-26 07:50 | XMS_ITS | Patient Health Record ---
Author Organization [facility] Address [address] [place] [address] Care Team Providers Care Houseperson Name Role Phone Kiran LAZCANO, Carina Terry Primary Care Provider Un available Black, Britt Unavailable [phone] Allergies No Known Allergies Reason For Referral [...] primary osteoarthritis of the ankle and/or foot (154416952) Primary osteoarthritis, right ankle and foot (M19.071) Active confirmed Problem Localized, primary osteoarthritis of the ankle and/or foot (932731902) Primary osteoarthritis, left ankle and foot (M19.072) Active confirmed Problem Acquired hammer toe of right foot (8561271528629865 ) Other hammer toe(s) (acquired), right foot (M20.41) Active confirmed Problem [id number] Acquired hallux interphalangeus of left foot (M20.12) Active confirmed Problem [id number] Acquired hallux interphalangeus of right foot (M20.11) Active confirmed Plan Of Treatment No Information Insurance Providers Payer Name Payer Address Payer Phone Subscriber Number Group Number Insured Name Patient Relationship to Insured Coverage Start Date Coverage End Date [facility] [address] [place] [address] [id number] Gilma Munson Self - patient is the insured Medical (General) History Medical History History ICD Code Anxiety Shingles Cellulitis Broken bones covid-19 Depression Chicken pox Surgical History Surgery Date(Month/Year) Endometriosis Cyst Surgery
[2024-11-26 10:36] LABS: Estimated Average Glucose 128 mg/dL; Hemoglobin A1C 155.3677 umol/L; Hemoglobin A1c % 6.1 % (<6.0); Total Hemoglobin (HGBA1C) 3628.8349 umol/L
[2024-11-26 10:53] LABS: Alanine Aminotransferase 38 U/L (0-31); Aspartate Amino Transferase 31 U/L (5-31); Cholesterol 192 mg/dL (<200); Glucose Fasting 124 mg/dL (60-99); HDL Cholesterol 43 mg/dL (>40); LDL Cholesterol Calculated 129 mg/dL (<100); Triglycerides 103 mg/dL (<150)
[2024-11-26 11:07] LABS: Vitamin D 25-OH Total 40.3 ng/mL (>30)
[2024-11-26 11:10] LABS: HBS Num1 21.59 mIU/mL (0-7.99); ~Hepatitis B Surface Antibody REACTIVE (Nonreactive)
[2024-11-26 11:24] LABS: Folate 11.1 ng/mL (> or = 4.0); Vitamin B12 545 pg/mL (200-900)
[2024-11-28 22:47] LABS: TS Negative Control Passed; TS Panel A 0; TS Panel B 0; TS Positive Control Passed; TSpotTB Negative (Negative)
== END 2024-11-26 07:47 | disposition home or self-care (01) ==
LOC: HO.HMGCLDS 07:46
PROVIDERS: PCP Internal Medicine; Visit Provider Internal Medicine
DX: Z01.84 Encounter for antibody response examination (principal); Z11.1 Encounter for screening for respiratory tuberculosis; M51.369 Other intervertebral disc degeneration, lumbar region without mention of lumbar back pain or lower extremity pain; R73.01 Impaired fasting glucose; E66.01 Morbid (severe) obesity due to excess calories; Z68.42 Body mass index [BMI] 45.0-49.9, adult; E55.9 Vitamin D deficiency, unspecified; E67.2 Megavitamin-B6 syndrome
CPT/HCPCS: 36415; 80061; 82306; 82607; 82746; 82947; 83036; 84207; 84450; 84460; 86481; 86706

== ENCOUNTER 2024-12-01 09:52 | Outpatient (REF) | payer OTHER, SELFPAY ==
--- OUTSIDE RECORDS SUMMARY | 2024-12-01 10:14 | XMS_ITS | Patient Health Record ---
Author Organization [facility] Address [address] [place] [address] Care Team Providers Care Vertical Roll Operator Name Role Phone Kiran LAZCANO, Carina Terry Primary Care Provider Un available Black, Britt Unavailable [phone] Allergies No Known Allergies Reason For Referral [...] primary osteoarthritis of the ankle and/or foot (197005761) Primary osteoarthritis, right ankle and foot (M19.071) Active confirmed Problem Localized, primary osteoarthritis of the ankle and/or foot (325497862) Primary osteoarthritis, left ankle and foot (M19.072) Active confirmed Problem Acquired hammer toe of right foot (2617261912914051 ) Other hammer toe(s) (acquired), right foot (M20.41) Active confirmed Problem 561080110 Acquired hallux interphalangeus of left foot (M20.12) Active confirmed Problem 687797330 Acquired hallux interphalangeus of right foot (M20.11) Active confirmed Plan Of Treatment No Information Insurance Providers Payer Name Payer Address Payer Phone Subscriber Number Group Number Insured Name Patient Relationship to Insured Coverage Start Date Coverage End Date [facility] [address] [place] [address] [id number] Gilma Munson Self - patient is the insured Medical (General) History Medical History History ICD Code Anxiety Shingles Cellulitis Broken bones covid-19 Depression Chicken pox Surgical History Surgery Date(Month/Year) Endometriosis Cyst Surgery
[2024-12-02 08:03] LABS: HBS Num1 22.68 mIU/mL (0-7.99); ~Hepatitis B Surface Antibody REACTIVE (Nonreactive)
[2024-12-03 23:19] LABS: TS Negative Control Passed; TS Panel A 1; TS Panel B 0; TS Positive Control Passed; TSpotTB Negative (Negative)
== END 2024-12-01 09:53 | disposition home or self-care (01) ==
LOC: HO.HMGCLDS 09:52
PROVIDERS: PCP Internal Medicine; Visit Provider Internal Medicine
DX: Z11.1 Encounter for screening for respiratory tuberculosis (principal); Z78.9 Other specified health status
CPT/HCPCS: 36415; 86481; 86706

== ENCOUNTER 2024-12-09 06:08 | Outpatient (REF) | payer OTHER, SELFPAY ==
--- NOTE | ~2024-12-09 | FL_ITS ---
EXAMINATION: XR FLUOROSCOPY WITH IMAGES CLINICAL INFORMATION: Lumbar spine pain management injections. COMPARISON: None available. TECHNIQUE: Fluoroscopy provided to: Dr. Geller Fluoroscopy time: 0.5 minutes DAP: 0.660 mGycm2 Images: 6 FINDINGS: 6 fluoroscopic spot images taken during lower lumbar pain management injections. Please refer to the full procedural report for details. FL/FL guidance in treatment room IMPRESSION: Fluoroscopic guidance. Electronically signed by: Anurag Mosqueda MD 12/09/2024 03:51 PM EDT
--- OUTSIDE RECORDS SUMMARY | 2024-12-09 06:10 | XMS_ITS | Patient Health Record ---
Author Organization [facility] Address [address] [place] [address] Care Team Providers Care Assistant Laboratory Director Name Role Phone Kiran LAZCANO, Carina Terry Primary Care Provider Un available Black, Britt Unavailable [phone] Allergies No Known Allergies Reason For Referral [...] primary osteoarthritis of the ankle and/or foot (791206169) Primary osteoarthritis, right ankle and foot (M19.071) Active confirmed Problem Localized, primary osteoarthritis of the ankle and/or foot (688764982) Primary osteoarthritis, left ankle and foot (M19.072) Active confirmed Problem Acquired hammer toe of right foot (2293747094368100 ) Other hammer toe(s) (acquired), right foot (M20.41) Active confirmed Problem 656739056 Acquired hallux interphalangeus of left foot (M20.12) Active confirmed Problem [id number] Acquired hallux interphalangeus of right foot (M20.11) Active confirmed Plan Of Treatment No Information Insurance Providers Payer Name Payer Address Payer Phone Subscriber Number Group Number Insured Name Patient Relationship to Insured Coverage Start Date Coverage End Date [facility] [address] [place] [address] [id number] Gilma Munson Self - patient is the insured Medical (General) History Medical History History ICD Code Anxiety Shingles Cellulitis Broken bones covid-19 Depression Chicken pox Surgical History Surgery Date(Month/Year) Endometriosis Cyst Surgery
== END 2024-12-09 06:09 | disposition home or self-care (01) ==
LOC: CF 06:08
PROVIDERS: Visit Provider Anesthesiology
DX: M54.16 Radiculopathy, lumbar region (principal)
CPT/HCPCS: 64483; 64493; J2003; J3301; Q9967

== ENCOUNTER 2024-12-09 10:30 | Outpatient (AMB) | payer OTHER, SELFPAY ==
[2024-12-09 10:45] VITALS: BP 130/90; PULSE 93; RESP 16; O2SAT 96
--- NOTE | 2024-12-09 10:45 | MHC.OFFVIS ---
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: No Allergies No Known Allergies Allergy (Verified 12/09/24 10:45) Medication List - Last Reconciled 12/09/24 by Waleska Palmer LPN acetaminophen ER (Tylenol Arthritis Pain) 650 mg PO Q12H diclofenac sodium 50 mg PO BID PRN gabapentin 300 mg PO Q8H 30 days levonorgestrel (Mirena) intrauterine lidocaine 5% 1 patch topical DAILY 30 days lorazepam (Ativan) 1 mg PO ONCE modafinil 100 mg PO QAM 30 days tirzepatide (weight loss) (Zepbound) 2.5 mg (0.5 mL) subcut QWEEK PFSH Medical History (Updated 11/05/24 @ 11:36 by Carina Beck MD) History of urinary incontinence Acute lumbar radiculopathy Pes planus of both feet Adenomyomatosis of gallbladder Varicose veins of left lower extremity Impaired fasting glucose Vitamin D deficiency Obstructive sleep apnea treated with continuous positive airway pressure (CPAP) History of 2019 novel coronavirus disease (COVID-19) Cysts of both ovaries Surgical History (Updated 11/06/24 @ 11:35 by Telma Martinez CMA) Hx of adenoidectomy Family History Father Diabetes CVD (cardiovascular disease) Stroke Mother Mental health disorder Sister Anxiety Diabetes Substance abuse Mental health disorder Maternal Uncle Hypertension Social History (Updated 11/06/24 @ 11:35 by Telma Martinez CMA) Housing: Apartment Alcohol intake: current Alcohol intake frequency: holidays/special occasions only Patient Tobacco Use Status: Never used Tobacco Years Smoked: 0 e-Cigarette/Vaping Use: Never Used Current occupational status: employed 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 @ [employer] Cognitive needs: No Hearing needs: No Vision needs: No Physical Exam Vital Signs: Last Vital Signs Pulse 129 H 12/09/24 11:26 Resp 16 12/09/24 11:26 BP 140/88 H 12/09/24 11:26 Pulse Ox 95 12/09/24 11:26 Oxygen Delivery Method Room Air 12/09/24 11:26 Assessment & Plan Assessment & Plan (1) Lumbar degenerative disc disease: Code(s): M51.36 - Other intervertebral disc degeneration, lumbar region Category: Medical (2) Lumbar radiculopathy: Code(s): M54.16 - Radiculopathy, lumbar region Category: Medical Plan Transforaminal right L5-S1 epidural steroid injection Informed consent was thoroughly explained to the patient before the procedure. The risks were delineated as bleeding infection peripheral nerve damage spinal cord damage and headache. ? The patient came to the operating room.? She was positioned prone on operating table with a pillow under his abdomen.? Time-out was performed delineating correct site and side of the procedure, nature of the injection, name and date of of the patient. The lower back of the patient was prepped with ChloraPrep and draped with sterile utility towels.? C-arm was brought over the operating field and sq picture of L4 vertebra were demonstrated on the screen.? The right side was chosen 1st as the side of the injection.? Tilting machine ipsilateral to the right at the level of L5 1st the most prominent picture of the right pedicle was obtained on the screen.? 3 mm below the level of the lowest point of the pedicle projection to the skin small amount of lidocaine 1% 2 cc was injected to anesthetize the skin.? After that 7 in 22 gauge Quincke point needle was inserted through the skin wheal and was advanced to were the L4-L5 foramina on anterior posterior , lateral and oblique views intermittently.? When tip of the needle entered foramina projection on AP view injection of the contrast was performed demonstrating diskogram. Unfortunately the large osteophytes of the L5 vertebra deviated my needle and it ended up in the patient's discs. The needle was removed and repositioned directing the tip of the needle this time more cephalad. After that injection of the contrast was performed and it demonstrated perineural spread of the contrast. After that injection of the small amount of lidocaine 0.5% 3 cc mixed with Kenalog 40 mg was performed into the needle. The patient tolerated procedure well. She was taken outside of the operating room to recovery room where she recovered uneventfully. Orders: Orders FL guidance in treatment room Today M54.16 - Radiculopathy, lumbar region Medications: New lorazepam (Ativan) Take 30 minutes prior to arrival to procedure 1 mg PO ONCE 1 tab 0RF anxiety Coding Level of Care Code Procedure Only Diagnoses Lumbar degenerative disc disease M51.36 Lumbar radiculopathy M54.16
[2024-12-09 11:26] VITALS: BP 140/88; PULSE 129; RESP 16; O2SAT 95
== END 2024-12-09 11:27 | disposition home or self-care (01) ==
LOC: HO.PMCPRC 10:30
PROVIDERS: PCP Internal Medicine; Visit Provider Anesthesiology
DX: M51.360 Other intervertebral disc degeneration, lumbar region with discogenic back pain only (principal); M54.16 Radiculopathy, lumbar region
CPT/HCPCS: 64493

== ENCOUNTER 2024-12-19 09:36 | Outpatient (AMB) | payer OTHER, SELFPAY ==
--- NOTE | 2024-12-19 09:42 | MHC.PC.OV ---
Vital Signs 12/19/24 10:18 Weight 308 lb 8 oz BP 138/92 H Blood Pressure Location Lt brachial Position Sitting Respiration 16 Pulse 75 Pulse Source Pulse Oximeter Temp 97.8 F Temp Source Oral Pulse Oximetry (%) 98 Oxygen Delivery Method Room Air Intake Visit Reasons: PE Intake Note: Pt is here today for PE. Last mammogram was 11/30/22. Pap- may 2024 Allergies No Known Allergies Allergy (Verified 12/19/24 10:48) Medication List - Last Reconciled 12/19/24 by Carina Beck MD acetaminophen ER (Tylenol Arthritis Pain) 650 mg PO Q12H diclofenac sodium 50 mg PO BID PRN gabapentin 300 mg PO Q8H 30 days levonorgestrel (Mirena) intrauterine lidocaine 5% 1 patch topical DAILY 30 days modafinil 100 mg PO QAM 30 days Tobacco use date assessed: 12/19/24 Dental Screening Dental Screen Date: 12/19/24 Did you have a dental visit in the last 12 months?: Yes Did you have a dental problem in the last 6 months where you did not have access to dental care?: No Was dental information given to patient?: Patient has dentist HPI PE HPI Details - The patient is a 49-year-old female presenting for a comprehensive physical examination for educational requirements. - She underwent a mammogram on November 30, 2022, with normal results and performed a Pap smear in May 2022, copy results requested. - All vaccinations are confirmed up-to-date including hepatitis and tuberculosis testing. - Cologuard testing has been proposed as she begins regular colorectal cancer screenings. - The patient has obesity, prediabetes, and mildly elevated blood pressure. - Previous efforts for weight management with Zepbound were unsuccessful due to insurance denial. - She is currently on multiple medications for chronic issues, including diclofenac, gabapentin, Mirena IUD, lidocaine patch, and modafinil for sleep regulation. - No recent changes in her general health status were reported. 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 Impaired fasting glucose Vitamin D deficiency Obstructive sleep apnea treated with continuous positive airway pressure (CPAP) History of 2018 novel coronavirus disease (COVID-19) Cysts of both ovaries Surgical History Hx of adenoidectomy Family History Father Diabetes CVD (cardiovascular disease) Stroke Mother Mental health disorder Sister Anxiety Diabetes Substance abuse Mental health disorder Maternal Uncle Hypertension Social History Housing: Apartment Alcohol intake: current Alcohol intake frequency: holidays/special occasions only Patient Tobacco Use Status: Never used Tobacco Years Smoked: 0 e-Cigarette/Vaping Use: Never Used Current occupational status: employed 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 1. Little interest or pleasure in doing things: not at all 2. Feeling down, depressed, or hopeless: not at all 3. Trouble falling or staying asleep, or sleeping too much: not at all 4. Feeling tired or having little energy: not at all 5. Poor appetite or overeating: not at all 6. Feeling bad about yourself - or that you are a failure or have let yourself or your family down: not at all 7. Trouble concentrating on things, such as reading the newspaper or watching television: not at all 8. Moving or speaking so slowly that other people could have noticed. Or the opposite - being so fidgety or restless that you have been moving around a lot more than usual: not at all 9. Thoughts that you would be better off or of hurting yourself in some way: not at all Total score: 0 Depression Screening Interpretation: Negative Depression Screening Done: Yes 12636 - PHQ-9 Billing: Yes Source: Developed by Drs. Jarek Mclean, Cecile Caban, Usman Castillo and colleagues, with an educational marixa from [employer]. Thrive Questionnaire Date Thrive assessed: 11/05/24 I am a: Patient What is your living situation today?: I have a steady place to live Within the past 12 months, did the food you bought not last and you didn't have the money to get more?: Never true Within the past 12 months, did you worry whether your food would run out before you got money to buy more?: Never true Do you have trouble paying for medicines?: No Do you have trouble getting transportation to medical appointments?: No Do you have trouble paying your heating and electricity bill?: I choose not to answer this question Do you have trouble taking care of your child, family member or friend?: No Do you have trouble with day-to-day activities such as bathing, preparing meals, shopping, managing finances, etc.?: No Are you currently unemployed and looking for a job?: No Are you interested in more education?: No Please select the resources that you would like help with: None Currently or been in a relationship where the following occur: No concerns reported THRIVE Score: 0 AUDIT C Alcohol Use Questionnaire (AUDIT-C) 2. How many drinks containing alcohol do you have on a typical day when you are drinking?: 1 or 2 Total Score: 0 TAMIKA-7 AMB Questionnaire TAMIKA-7 Date TAMIKA - 7 assessed: 11/05/24 Feeling nervous, anxious, or on edge: 0 = Not at all Not being able to stop or control worryin = Not at all Worrying too much about different things: 0 = Not at all Trouble relaxin = Not at all Being so restless that it is hard to sit still: 0 = Not at all Becoming easily annoyed or irritable: 0 = Not at all Feeling afraid as if something awful might happen: 0 = Not at all Total TAMIKA-7 score (0-4 normal; 5-9 mild; 10-14 moderate; 15-21 severe): 0 Source: Developed by Drs. Jarek Mclean, Cecile Caban, Usman Castillo and colleagues, with an educational marixa from [employer]. Review of Systems Const Denies body aches, Denies fatigue, Denies fever(s) and Denies headache(s) Eyes Denies change in vision ENT Denies dizziness, Denies headache(s), Denies nasal congestion, Denies nasal discharge and Denies sore throat Card Denies chest pain, Denies lightheadedness, Denies palpitations and Denies dyspnea Resp Denies chest congestion, Denies cough, Denies dyspnea and Denies wheezing GI Denies abdominal pain, Denies change in bowel habits and Denies heartburn Denies hematuria, Denies urinary frequency, Denies dysuria and Denies urinary urgency Musc Reports arthralgias (Hips) and Reports stiffness Skin/Breast Denies breast pain, Denies breast mass, Denies lesions and Denies rash Neuro Denies dizziness and Denies headache(s) Psych Reports no additional complaints Endo Denies fatigue, Denies polydipsia, Denies polyuria and Denies palpitations Elvis/Lymph Denies easy bruising Aller/Immun Denies seasonal rhinorrhea and Denies wheezing Physical exam (Primary Care) Vital Signs: Last Vital Signs Temp 97.8 F 12/19/24 10:18 Pulse 75 12/19/24 10:18 Resp 16 12/19/24 10:18 BP 138/92 H 12/19/24 10:18 Pulse Ox 98 12/19/24 10:18 Oxygen Delivery Method Room Air 12/19/24 10:18 Tobacco/Smoking Status: Tobacco use Status Tobacco use date assessed 12/19/24 12/19/24 10:26 Patient Tobacco Use Status Never used Tobacco 12/19/24 09:42 Tobacco use type 11/11/24 08:25 e-Cigarette/Vaping Use Never Used 12/19/24 09:42 PHQ-9: PHQ-9 Score PHQ-9: Total score 0 12/19/24 11:10 Depression Screening Interpretation: Negative Thrive Assessment: Date of Thrive Assessment Date Thrive assessed 11/05/24 12/19/24 09:42 Currently or been in a relationship where the following occur: No concerns reported Advance Care Planning discussion: Completed/Scanned Date of discussion: 12/19/24 Who was present: Patient Forms completed: Health Care Proxy Time spent: 16-45 minutes Actual minutes spent: 3 Const General: comfortable, no acute distress, alert and Physically active Nutritional Appearance: obese morbidly obese Orientation/consciousness: patient oriented x3 HENMT Face and sinus: Yes face symmetric Eyes General: appearance normal, both eyes and all related structures Neck Other: Supple, no lymphadenopathy, thyroid gland nonpalpable Chest Breast/axilla palpation: normal palpation of the breasts Resp Auscultation: clear to auscultation bilaterally Cardio Other: S1-S2 present regular rate and rhythm GI Other: Normal bowel sounds obese, soft, slight discomfort on palpation over right upper quadrant, with no rebound or guarding General: Yes deferred (Goes to an OBGYN) Back/Spine/Pelvis Thoracic/Lumbar Spine: straight leg raise negative bilaterally and paraspinal muscle tenderness bilaterally in the mid lumbar Skin General skin exam: no rashes or lesions noted Neuro General: patient oriented x3, gait normal, tone normal, moves all extremities, Normal light touch and pain sensation, no focal motor deficits, CN's II-XI intact bilaterally and normal sensation to monofilament Extrem Other: crepitus right knee, flat feet General: Yes no joint enlargement, Yes no pedal edema and Yes normal gait Psych Appearance: grossly normal Mental Status: mental status grossly normal Speech and movement: Normal speech and movement present Affect: normal affect Results Reviewed Results Reviewed: Laboratory Tests 11/26/24 07:50 Fasting Glucose 124 H Estimat Average Glucose 128 Hemoglobin A1c % 6.1 H Name: Gilma Munson Age/Sex: 49/F : 1975 Unit#: [id number] Attend Dr: Carina Beck MD Re11/26/24 Status: DEP REF Location: [facility] Disch: SPEC : [id number] ABDIAS: 11/26/24 STATUS: COMP REQ : [id number] RECD: 11/26/24-[address]: Carina Beck MD COMP: 11/26/24-7 ENTERED: 11/26/[address]: ORDERED: Glu Fasting, AST, ALT, Lipid Panel, Vitamin D 25-OH Test Result Flag Reference FBS 124 H 60-99 mg/dL A fasting glucose from 100-125 mg/dl is considered impaired (pre-diabetes). AST (GOT) 31 5-31 U/L ALT (GPT) 38 H 0-31 U/L Triglyceride 103 <150 mg/dL Desirable Triglyceride: less than 150 mg/dL Borderline High Triglyceride 150-199 mg/dL High Triglyceride: 200-499 mg/dL Very High Triglyceride: greater than or equal to 5OO mg/dL Cholesterol 192 <200 mg/dL Desirable Cholesterol: less than 200 mg/dL Borderline High Cholesterol: 200-239 mg/dL High Cholesterol: greater than 239 mg/dL LDL Calculated 129 H <100 mg/dL Desirable LDL: less than 100 mg/dL Near Optimal/Above Optimal LDL: 110-129 mg/dL Borderline High LDL: 130-159 mg/dL High LDL: 160-189 mg/dL Very High LDL: greater than or equal to 190 mg/dL HDL 43 >40 mg/dL Desirable HDL: greater than 40 mg/dL Note: This HDL assay may give artificially low results in patients with liver disease. Vitamin D 25-OH 40.3 >30 ng/mL Health Based Reference Values* < 20 ng/mL Deficient 20-30 ng/mL Insufficient > 30 ng/mL Sufficient Coding Level of Care Code Est Pt Prev Care 40-64y(48312) Diagnoses Morbid obesity with BMI of 50.0-59.9, adult E66.01; Z68.43 Lumbar degenerative disc disease M51.36 Obstructive sleep apnea treated with continuous positive airway pressure (CPAP) G47.33; Z99.89 Advanced directives, counseling/discussion Z71.89 Annual visit for general adult medical examination with abnormal findings Z00.01 Impaired fasting glucose R73.01 Additional Codes PHQ-9 - 20770 - PHQ-9 Billing: Yes ([id number]) Vital Signs *Quality* - Advance Care Planning discussion: Completed/Scanned ([id number]) Vital Signs *Quality* - Time spent: 16-45 minutes ([id number]) Assessment & Plan Assessment & Plan (1) Morbid obesity with BMI of 50.0-59.9, adult: Code(s): E66.01 - Morbid (severe) obesity due to excess calories; Z68.43 - Body mass index [BMI] 50.0-59.9, adult Category: Medical Plan: Discussed need to increase activity and weight reduction. Recommended focusing on improving health instead of dieting. Mediterranean diet is a healthy diet that helps, limit food high in fat, sugar, and calories. Eat slowly, pay attention to portion sizes, plan your meals ahead of time, start regular physical activity, at least 150 minutes of moderate intensity exercise, or 90 minutes per week of vigorous exercise. Keeping a food diary, tracking what you eat and your physical activity can help assess what improvements you can make. There are many health problems associated with being overweight/obese, so it is important to improve your diet and exercise. There are medications and surgical options available, but Lifestyle changes are the 1st step. (2) Lumbar degenerative disc disease: Code(s): M51.36 - Other intervertebral disc degeneration, lumbar region Category: Medical Plan: Takes diclofenac sodium 50 mg twice a day as needed alternating with acetaminophen ER 650 mg per tablet. Stressed importance of losing weight through diet and exercise. (3) Obstructive sleep apnea treated with continuous positive airway pressure (CPAP): Code(s): G47.33 - Obstructive sleep apnea (adult) (pediatric); Z99.89 - Dependence on other enabling machines and devices Category: Medical Plan: Continue CPAP (4) Advanced directives, counseling/discussion: Code(s): Z71.89 - Other specified counseling Plan: Initiated the conversation about Advanced Directives. Advanced Directives help patients prepare for current and future decisions about their medical treatment and place of care. Discussed with patient that it is a process where a patients current condition and prognosis are reviewed, their wishes for information regarding their illness are elicited, and likely medical dilemmas are presented and options discussed. Healthcare proxy form completed today. The form can be amended as needed, reviewed yearly and make changes as needed (5) Annual visit for general adult medical examination with abnormal findings: Code(s): Z00.01 - Encounter for general adult medical examination with abnormal findings Plan: Recent lab results reviewed with patient.. Recommended dental visit every 6 months and regular eye exams, at least every 2 years. Take adequate calcium in diet and vitamin-D 3 at 2000 IU per cap once a day, in addition to weight-bearing exercises to help maintain good muscle tone and weight control. Instructed to do self-breast exam, and recommended to get yearly mammogram, starting at age 40. Immunization information provided: Yearly flu vaccine, shingles vaccine starting at age 50. Mammogram ordered today, as well as Cologuard testing for colon cancer screening. (6) Impaired fasting glucose: Code(s): R73.01 - Impaired fasting glucose Category: Medical Plan: Your previous fasting blood sugars were elevated above 100 mg/dL. Latest hemoglobin A1c is at 6.1%. Impaired glucose metabolism increases the risk for developing diabetes mellitus type 2, as well as heart attack and stroke later on. Lifestyle changes that promotes weight loss, healthy eating habits, and regular exercise are important, and can prevent the progression to diabetes Orders: Orders MM tomosynthesis screening BI 12/19/24 Z12.31 - Encounter for screening mammogram for malignant neoplasm of breast Referrals Cologuard Test Z12.11 - Encounter for screening for malignant neoplasm of colon, Z12.12 - Encounter for screening for malignant neoplasm of rectum
--- OUTSIDE RECORDS SUMMARY | 2024-12-19 09:57 | XMS_ITS | Patient Health Record ---
Author Organization [facility] Address [address] [place] [address] Care Team Providers Care Oil Recovery Unit Operator Name Role Phone Kiran LAZCANO, Carina Terry Primary Care Provider Un available Black, Britt Unavailable [phone] Allergies No Known Allergies Reason For Referral [...] primary osteoarthritis of the ankle and/or foot (153016253) Primary osteoarthritis, right ankle and foot (M19.071) Active confirmed Problem Localized, primary osteoarthritis of the ankle and/or foot (893216615) Primary osteoarthritis, left ankle and foot (M19.072) Active confirmed Problem Acquired hammer toe of right foot ([id number] ) Other hammer toe(s) (acquired), right foot (M20.41) Active confirmed Problem [id number] Acquired hallux interphalangeus of left foot (M20.12) Active confirmed Problem [id number] Acquired hallux interphalangeus of right foot (M20.11) Active confirmed Plan Of Treatment No Information Insurance Providers Payer Name Payer Address Payer Phone Subscriber Number Group Number Insured Name Patient Relationship to Insured Coverage Start Date Coverage End Date [facility] [address] [place] [address] [id number] Gilma Munson Self - patient is the insured Medical (General) History Medical History History ICD Code Anxiety Shingles Cellulitis Broken bones covid-19 Depression Chicken pox Surgical History Surgery Date(Month/Year) Endometriosis Cyst Surgery
[2024-12-19 10:18] VITALS: BP 138/92; PULSE 75; RESP 16; TEMP 36.6; O2SAT 98
== END 2024-12-19 11:11 | disposition home or self-care (01) ==
LOC: HO.HMCC 09:36
PROVIDERS: PCP Internal Medicine; Visit Provider Internal Medicine
DX: Z00.01 Encounter for general adult medical examination with abnormal findings (principal); E66.01 Morbid (severe) obesity due to excess calories; Z68.43 Body mass index [BMI] 50.0-59.9, adult; M51.369 Other intervertebral disc degeneration, lumbar region without mention of lumbar back pain or lower extremity pain; G47.33 Obstructive sleep apnea (adult) (pediatric); Z99.89 Dependence on other enabling machines and devices; Z71.89 Other specified counseling; R73.01 Impaired fasting glucose

== ENCOUNTER → 2024-12-19 09:36 | Outpatient (BNVA) | payer OTHER, SELFPAY | PROVIDERS: PCP Internal Medicine; Visit Provider Internal Medicine | DX: Z00.01 Encounter for general adult medical examination with abnormal findings (principal); E66.01 Morbid (severe) obesity due to excess calories; Z68.43 Body mass index [BMI] 50.0-59.9, adult; R73.01 Impaired fasting glucose; M51.369 Other intervertebral disc degeneration, lumbar region without mention of lumbar back pain or lower extremity pain; G47.33 Obstructive sleep apnea (adult) (pediatric); Z99.89 Dependence on other enabling machines and devices; Z71.89 Other specified counseling; Z13.31 Encounter for screening for depression | CPT/HCPCS: 96127 ==

== ENCOUNTER 2025-01-08 11:17 | Outpatient (AMB) | payer OTHER, SELFPAY ==
--- NOTE | 2025-01-08 11:22 | MHC.OFFVIS ---
Vital Signs 01/08/25 11:23 Height 5 ft 4 in Weight 308 lb BMI 52.9 BP 179/85 H Blood Pressure Location Rt radial Position Sitting Pulse 88 Pulse Source Pulse Oximeter Pulse Oximetry (%) 99 Oxygen Delivery Method Room Air Intake Visit Reasons: RIGHT L5, S1 TFESI Intake Note: Pain today 0/10 Route Deliverer Required: No Accompanied by: Self / Same As Patient Allergies No Known Allergies Allergy (Verified 01/08/25 11:23) HPI Comments Details: The patient is a 49-year-old female presenting with a follow-up to assess the response to a right L5-S1 TFESI injection. The injection was performed on December 09, 2024, by Dr. Geller, and the patient currently reports no pain. She has been undergoing physical therapy and home exercise program and reports that it has been beneficial. Pain is rated at 0/10. In March 2024, the patient consulted Dr. Devine, Neurosurgeon who recommended conservative treatment, including injections, and advised against surgery. Currently, she experiences no significant right leg pain or back pain, although she reports occasional stiffness and a dull sensation in her leg. Patient is interested to return back to work and will follow up with [facility] to undergo return to work assessment. Denies any recent cough, cold, infection, fever or any significant changes in medical history since last office visit. Past Procedures: 12/09/24: Right L5-S1 TFESI-100% ongoing pain relief PRIOR: The patient is a 49-year-old female presenting for follow up after completing PT in June 2024 with acute right-sided radiculopathy and associated pain. The patient?s condition initiated significant concern after she experienced acute exacerbations of radiculopathy severe enough to prompt visits to the emergency department on consecutive occasions within this month. These sudden symptomatic flares occurred upon rising from bed, suggesting a mechanical trigger. Her previous lumbar MRI was reviewed today and is noted below. Patient was evaluated by [facility] in March 2024 and was recommended with conservative treatments, including trial of therapeutic injection prior to surgical treatments. There is a background of obstructive sleep apnea, managed with CPAP therapy, and coinciding challenges due to morbid obesity categorizing her BMI at 50.9. 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 Interventional management has included physical therapy from which she was initially discharged with improvement, yet did not obtain long-term relief. She reports poor results with morphine and prednisone while favoring gabapentin, diclofenac, and oxycodone for alleviating symptoms. Patient's pain occurrences continue to challenge her daily functionality and quality of life without substantial long-term relief from current modalities. Denies any fever or chills, abdominal or groin pain, weakness, footdrop, bladder or bowel dysfunction, or saddle anesthesia. - Onset: Acute exacerbations, first noted on October 09 while getting out of bed. - Quality: Severe pain radiating to the right lateral thigh, with L5-S1 nerve distribution, not affecting other extremities. - Location: Right lateral thigh, right buttock, and sometimes the top of the right foot and heel. - Exacerbating Factors: Getting out of bed specifically triggers pain, lifting, twisting, extending backwards. - Relieving Factors: Adjustments with medications such as gabapentin, diclofenac, cyclobenzaprine and oxycodone provide partial relief. - Interference: Affects walking, sleeping, and general movement. - Affect: The patient reports substantial distress related to the intensity of pain and its interference with rest and daily activities. - Analgesia: Currently using gabapentin, lidocaine patches, diclofenac, and oxycodone; with gabapentin and diclofenac providing the most relief. - Adverse Effects: Morphine induced itching and poor reaction, prednisone ineffective, hesitation about using cyclobenzaprine due to prolonged effects. - Activities of Daily Living: Pain severely impacts her ability to walk, contributing to poor quality of sleep and difficulty in performing occupational duties. - Aberrant Drug Related Behaviors: None reported. The patient appears compliant with current medication regimens and dosing. PRIOR: Patient is a very pleasant 49-year-old female with past history of osteoarthritis, morbid obesity, ADRYAN with CPAP use, presents today for initial evaluation of acute low back pain with bilateral radiculopathy. Patient reports sudden onset of back pain on 03/02/24 when she turned over in bed to get out out of bed and could not walk. Patient was seen at our ER on 03/02/24 and was treated with oxycodone, dexamethasone and cyclobenzaprine with partial improvement. She had follow up for acute low back pain at [facility] on 03/15/24 and was referred to physical therapy. She reports low back pain has been chronic issue for her and she has been seeing chiropractor for this. Denies any recent adjustments or spine manipulations since onset of pain. Patient reports past history of intermittent you ran incontinence which she reports has worsened since recent back pain exacerbation. Back pain is localized to lower spine with radiation into her buttocks and into posterior thighs and calves and feet bilaterally with associated numbness, tingling and aching sensations. Patient reports radicular symptoms alternate each day, worse in the left leg today. Pain aggravated by activity, walking, prolonged sitting, bending forward or coughing and relieved by rest, changing position, heat and medication. 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 Patient completed lumbar spine x-ray and MRI as noted below. Denies previous spine surgery or injections. Denies any fever or chills, abdominal or groin pain, weakness, foot drop, bowel dysfunction or saddle anesthesia. Location: Lower back, radiates down bilateral legs posteriorly Duration: Chronic pain for 1 year, worsening since 03/02/24 Characteristics of symptom or complaint: Shooting, numbness, aching, tightness, throbbing, burning, cramping Aggravating or associated factors: Prolonged sitting, standing, bending Relieving factors: Movements, heat, diclofenac, oxycodone, oral steroids, cyclobenzaprine Treatment: Starting PT 04/23/24, [facility], MRI, xrays [facility] Medical History History of urinary incontinence Acute lumbar radiculopathy Pes planus of both feet Adenomyomatosis of gallbladder Varicose veins of left lower extremity Impaired fasting glucose Vitamin D deficiency Obstructive sleep apnea treated with continuous positive airway pressure (CPAP) History of 2019 novel coronavirus disease (COVID-19) Cysts of both ovaries Surgical History Hx of adenoidectomy Family History Father Diabetes CVD (cardiovascular disease) Stroke Mother Mental health disorder Sister Anxiety Diabetes Substance abuse Mental health disorder Maternal Uncle Hypertension Social History Housing: Apartment Alcohol intake: current Alcohol intake frequency: holidays/special occasions only Patient Tobacco Use Status: Never used Tobacco Years Smoked: 0 e-Cigarette/Vaping Use: Never Used Current occupational status: employed 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 Denies significant pain. All systems reviewed & are unremarkable except as noted in HPI and below Physical Exam Vital Signs: Last Vital Signs Pulse 88 01/08/25 11:23 BP 179/85 H 01/08/25 11:23 Pulse Ox 99 01/08/25 11:23 Oxygen Delivery Method Room Air 01/08/25 11:23 BMI result Body Mass Index 52.9 General: Appears afebrile. Alert and oriented. Mood and affect appropriate. Follows and participates in conversation appropriately. Respiratory effort is unlabored. No cough. Able to transition from sit to stand unassisted. Ambulates with bilaterally normal heel strike and toe off. General: Yes no CVA tenderness Back/Spine/Pelvis Back: no CVA tenderness Cervical Spine: cervical ROM normal and No Cervical spine tenderness Thoracic/Lumbar Spine: thoracic and lumbar spine normal to inspection, No Thoracic/lumbar spine scar(s), Lasegue's sign negative, pain with thoraco-lumbar ROM, paraspinal muscle tenderness, thoraco-lumbar ROM limited, No thoracic spinal tenderness and lumbar spinal tenderness (L4-S1 mild) Pelvis: no buttock tenderness Sacroiliac joints: bilaterally tender to palpation (minimal) Results Reviewed Results Reviewed: MR SPINE LUMBAR without CONTRAST 03/27/24 at [facility] INDICATION: Low back pain radiating into hips and legs. Incontinence. TECHNIQUE: Unenhanced multiplanar, multisequence MR imaging of the lumbar spine. COMPARISON: None. FINDINGS: Normal lumbar alignment is demonstrated. Vertebral heights are well maintained. Degenerative endplate changes are seen at L5-S1. There is T2 hyperintensity within the L5 vertebral body Schmorl''s node is seen at the superior endplate of L1, T12, T11, L2, and the inferior endplate of L5. Conus medullaris is unremarkable. The conus terminates at L1-2. Paraspinal soft tissues and visualized portions of the abdomen and pelvis are unremarkable. At L1-2 there is a posterior right paracentral disc bulge effacing the ventral thecal sac. Mild right neural foraminal narrowing is seen. No central canal stenosis is identified. Bilateral facet hypertrophy is seen. At L2-3 there is a broad-based left paracentral disc protrusion. There is mild right and mild to moderate left neural foraminal narrowing. There is effacement of the ventral thecal sac. Bilateral facet hypertrophy is seen. At L3-4 there is a right-sided disc protrusion with moderate to severe right and mild left neural foraminal narrowing. No central canal stenosis is identified. Bilateral facet hypertrophy is seen. At L4-5 there is bilateral facet hypertrophy. There is mild right and mild to moderate left neural foraminal narrowing. No central canal stenosis is seen. No central canal stenosis is noted. At L5-S1 there is a central disc extrusion with severe bilateral neural foraminal narrowing. There is effacement of the ventral thecal sac and bilateral facet hypertrophy. Given the extent of degenerative change, the elevated T2 and STIR signal in the L5 vertebral body likely represents ongoing Modic type change. IMPRESSION: 1. Degenerative endplate changes are seen at L5-S1. There is a central disc extrusion with severe bilateral neural foraminal narrowing at this level. Elevated T2 and STIR signal is also seen within the L5 vertebral body which is likely related to ongoing degenerative change. However, if there is clinical suspicion for osteomyelitis, post contrast imaging can be obtained. 2. At L4-5 there is mild to moderate left and mild right neural foraminal narrowing. 3. At L3-4 there is a right-sided disc protrusion with moderate to severe right and mild left neural foraminal narrowing. 4. At L2-3 there is a broad-based left paracentral disc protrusion. Mild to moderate left and mild right neural foraminal narrowing is seen. 5. At L1-2 there is a right paracentral disc bulge. Mild right neural foraminal narrowing is seen. XR LUMBOSACRAL SPINE 10/13/24 CLINICAL INFORMATION: pain COMPARISON: 03/02/2024. FINDINGS: No scoliosis. Normal lordosis. No acute fracture, compression deformity, or suspicious bone lesion. Grade 1 spondylolisthesis L5-S1 measuring 10 mm. There is a 2 mm retrolisthesis L3 on L4. Sagittal alignment otherwise anatomic Moderate to severe disc degeneration L3-4 and L4-5. Severe disc degeneration L5-S1 with sclerosis of the endplates and disc vacuum phenomenon. Mild degenerative facet changes spanning L3-S1. Prominent Schmorl's node superior endplate L1. Moderate degenerative changes bilateral SI joints. There is an IUD device within the central pelvis. No soft tissue abnormalities. IMPRESSION: 1. No acute findings lumbar spine. 2. Grade 1 spondylolisthesis L5-S1, with severe disc degeneration and sclerosis of the endplates. 3. Moderate degenerative spondylosis spanning L3-S1. Assessment & Plan Assessment & Plan (1) Lumbosacral disc herniation: Code(s): M51.27 - Other intervertebral disc displacement, lumbosacral region Category: Medical (2) Lumbar degenerative disc disease: Code(s): M51.36 - Other intervertebral disc degeneration, lumbar region Category: Medical (3) Vertebrogenic low back pain: Code(s): M54.51 - Vertebrogenic low back pain Category: Medical (4) Spondylolisthesis, lumbar region: Code(s): M43.16 - Spondylolisthesis, lumbar region Category: Medical Plan Patient is 1 month status post right L5-S1 TFESI with complete pain relief with significant improvement in her daily functioning, mobility, and sleep. The patient is advised to continue with physical therapy and the home exercise program as it has been beneficial in maintaining her current pain-free status. If the pain returns, particularly around the three-month kobe post-injection, she is instructed to contact the clinic for a possible repeat injection. The patient is informed about the potential for radiofrequency ablation and other interventions if necessary for future pain management needs. Patient will [facility] to undergo return to work assessment. All questions and concerns have been answered patient agreed with the treatment plan follow-up as needed Patient was informed and verbally consented to the use of an ambient scribe for clinic note documentation during this visit. Coding Level of Care Code Est Pt Level 3 (87797) Complex EM visit Add On G2211 Diagnoses Lumbosacral disc herniation M51.27 Lumbar degenerative disc disease M51.36 Vertebrogenic low back pain M54.51 Spondylolisthesis, lumbar region M43.16
[2025-01-08 11:23] VITALS: BP 179/85; PULSE 88; O2SAT 99; BMI 52.9
--- OUTSIDE RECORDS SUMMARY | 2025-01-08 12:47 | XMS_ITS | Patient Health Record ---
Author Organization [facility] Address [address] [place] [address] Care Team Providers Care Furniture Mover Name Role Phone Kiran LAZCANO, Carina Terry Primary Care Provider Un available Black, Britt Unavailable [phone] Allergies No Known Allergies Reason For Referral [...] primary osteoarthritis of the ankle and/or foot (297992270) Primary osteoarthritis, right ankle and foot (M19.071) Active confirmed Problem Localized, primary osteoarthritis of the ankle and/or foot (716964331) Primary osteoarthritis, left ankle and foot (M19.072) Active confirmed Problem Acquired hammer toe of right foot (7706596851467186 ) Other hammer toe(s) (acquired), right foot (M20.41) Active confirmed Problem [id number] Acquired hallux interphalangeus of left foot (M20.12) Active confirmed Problem [id number] Acquired hallux interphalangeus of right foot (M20.11) Active confirmed Plan Of Treatment No Information Insurance Providers Payer Name Payer Address Payer Phone Subscriber Number Group Number Insured Name Patient Relationship to Insured Coverage Start Date Coverage End Date [facility] [address] [place] [address] [id number] Gilma Munson Self - patient is the insured Medical (General) History Medical History History ICD Code Anxiety Shingles Cellulitis Broken bones covid-19 Depression Chicken pox Surgical History Surgery Date(Month/Year) Endometriosis Cyst Surgery
== END 2025-01-08 11:33 | disposition home or self-care (01) ==
PROVIDERS: PCP Internal Medicine; Visit Provider Nurse Practitioner Family
DX: M51.27 Other intervertebral disc displacement, lumbosacral region (principal); M51.369 Other intervertebral disc degeneration, lumbar region without mention of lumbar back pain or lower extremity pain; M43.16 Spondylolisthesis, lumbar region
CPT/HCPCS: 99213

== ENCOUNTER → 2025-01-08 11:17 | Outpatient (BNVA) | payer OTHER, SELFPAY | PROVIDERS: PCP Internal Medicine; Visit Provider Nurse Practitioner Family ==

== ENCOUNTER → 2025-01-20 13:15 | Outpatient (BNV) | payer OTHER, SELFPAY | PROVIDERS: PCP Internal Medicine; Visit Provider Internal Medicine | DX: Z12.31 Encounter for screening mammogram for malignant neoplasm of breast (principal) | CPT/HCPCS: 77063; 77067 ==

== ENCOUNTER 2025-01-20 13:25 | Outpatient (REF) | payer OTHER, SELFPAY ==
--- OUTSIDE RECORDS SUMMARY | 2025-01-20 14:35 | XMS_ITS | Patient Health Record ---
Author Organization [facility] Address [address] [place] [address] Care Team Providers Care Ostomy Care Nurse Name Role Phone Kiran LAZCANO, Carina Terry Primary Care Provider Un available Black, Britt Unavailable [phone] Allergies No Known Allergies Reason For Referral No Information Medications Medication SIG (Take, Route, Frequency, Duration) Notes Start Date End Date Status Diclofenac Sodium 50 MG 1 tablet as need ed Orally Twice a day; Duration: 30 days Active Physical Therapy . . . 2-3x/week; Durat ion: 3-4 weeks 03/09/2022 Active Ibuprofen 200 MG 1 tablet with food o r milk as needed Orally Three times a day Active Wellbutrin SR 100 MG 1 tablet in the mor alondra Orally Once a day; Duration: 30 day(s) Active Vitamin D3 5000 UNIT/ML 0.1 ml Orally On ce a day; Duration: 30 day(s) Unknown Mirena Unknown BuSpar Unknown [...] primary osteoarthritis of the ankle and/or foot (385907975) Primary osteoarthritis, right ankle and foot (M19.071) Active confirmed Problem Localized, primary osteoarthritis of the ankle and/or foot (810265743) Primary osteoarthritis, left ankle and foot (M19.072) Active confirmed Problem Acquired hammer toe of right foot ([id number] ) Other hammer toe(s) (acquired), right foot (M20.41) Active confirmed Problem Acquired hallux valgus (26599162) Acquired hallux interphalangeus of left foot (M20.12) Active confirmed Problem Acquired hallux valgus (59048372) Acquired hallux interphalangeus of right foot (M20.11) Active confirmed Plan Of Treatment No Information Insurance Providers Payer Name Payer Address Payer Phone Subscriber Number Group Number Insured Name Patient Relationship to Insured Coverage Start Date Coverage End Date [facility] [address] [place] [address] [id number] Gilma Munson Self - patient is the insured Medical (General) History Medical History History ICD Code Anxiety Shingles Cellulitis Broken bones covid-19 Depression Chicken pox Surgical History Surgery Date(Month/Year) Endometriosis Cyst Surgery
== END 2025-01-20 13:26 | disposition home or self-care (01) ==
LOC: HO.MAMMO 13:25
PROVIDERS: PCP Internal Medicine; Visit Provider Internal Medicine
DX: Z12.31 Encounter for screening mammogram for malignant neoplasm of breast (principal)
CPT/HCPCS: 77063; 77067

== ENCOUNTER 2025-01-27 12:46 | Outpatient (AMB) | payer OTHER, SELFPAY ==
[2025-01-27 13:02] VITALS: BP 120/86; PULSE 78; TEMP 36.9; O2SAT 95; BMI 53.5
--- NOTE | 2025-01-27 13:02 | A.OFFPC_ITS ---
Vital Signs 01/27/25 13:02 Height 5 ft 4 in Weight 312 lb BMI 53.5 BP 120/86 Blood Pressure Location Rt brachial Position Sitting Pulse 78 Pulse Source Pulse Oximeter Temp 98.5 F Temp Source Oral Pulse Oximetry (%) 95 Oxygen Delivery Method Room Air Intake Visit Reasons: fit for duty (fmla) Allergies No Known Allergies Allergy (Verified 02/01/25 20:52) Medication List - Last Reconciled 02/01/25 by Carina Beck MD acetaminophen ER (Tylenol Arthritis Pain) 650 mg PO Q12H diclofenac sodium 50 mg PO BID PRN gabapentin 300 mg PO Q8H 30 days levonorgestrel (Mirena) intrauterine lidocaine 5% 1 patch topical DAILY 30 days modafinil 100 mg PO QAM 30 days Tobacco use date assessed: 01/27/25 Dental Screening Dental Screen Date: 01/27/25 Did you have a dental visit in the last 12 months?: Yes Did you have a dental problem in the last 6 months where you did not have access to dental care?: No Was dental information given to patient?: Patient has dentist HPI fit for duty (fmla) HPI Details 49-year-old lady with history of chronic low back pain due to lumbar degenerative disc disease with spondylolisthesis in lumbar area, currently being seen at the [facility] clinic [place] [facility] who in turn referred her to physical therapy for functional assessment. Patient states that she has already seen physical therapy and has been cleared by them to go back to work, now needs a form allowing her to return to work starting tomorrow 01/28/2025, without any limitat ions. Patient also states that she has been seeing her massage therapist who also has been helping her with her recurrent low back pain. At present feels much improved, feels well enough to go back to work without any restrictions.. [facility] Medical History History of urinary incontinence Acute lumbar radiculopathy Pes planus of both feet Adenomyomatosis of gallbladder Varicose veins of left lower extremity Impaired fasting glucose Vitamin D deficiency Obstructive sleep apnea treated with continuous positive airway pressure (CPAP) History of 2019 novel coronavirus disease (COVID-19) Cysts of both ovaries Surgical History Hx of adenoidectomy Family History Father Diabetes CVD (cardiovascular disease) Stroke Mother Mental health disorder Sister Anxiety Diabetes Substance abuse Mental health disorder Maternal Uncle Hypertension Social History Housing: Apartment Alcohol intake: current Alcohol intake frequency: holidays/special occasions only Patient Tobacco Use Status: Never used Tobacco Years Smoked: 0 e-Cigarette/Vaping Use: Never Used Current occupational status: employed 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 @ [employer] Cognitive needs: No Hearing needs: No Vision needs: No Questionnaire Thrive Questionnaire Date Thrive assessed: 12/12/24 I am a: Patient What is your living situation today?: I have a steady place to live Within the past 12 months, did the food you bought not last and you didn't have the money to get more?: Never true Within the past 12 months, did you worry whether your food would run out before you got money to buy more?: Never true Do you have trouble paying for medicines?: No Do you have trouble getting transportation to medical appointments?: No Do you have trouble paying your heating and electricity bill?: I choose not to answer this question Do you have trouble taking care of your child, family member or friend?: No Do you have trouble with day-to-day activities such as bathing, preparing meals, shopping, managing finances, etc.?: No Are you currently unemployed and looking for a job?: No Are you interested in more education?: No Please select the resources that you would like help with: None Currently or been in a relationship where the following occur: No concerns reported THRIVE Score: 0 TAMIKA-7 AMB Questionnaire TAMIKA-7 Date TAMIKA - 7 assessed: 11/05/24 Source: Developed by Drs. Jarek Mclean, Cecile Caban, Usman Castillo and colleagues, with an educational marixa from [employer]. Review of Systems Const All systems reviewed & are unremarkable except as noted in HPI and below Physical exam (Primary Care) Vital Signs: Last Vital Signs Temp 98.5 F 01/27/25 13:02 Pulse 78 01/27/25 13:02 BP 120/86 01/27/25 13:02 Pulse Ox 95 01/27/25 13:02 Oxygen Delivery Method Room Air 01/27/25 13:02 BMI result Body Mass Index 53.5 Tobacco/Smoking Status: Tobacco use Status Tobacco use date assessed 01/27/25 01/27/25 13:13 Patient Tobacco Use Status Never used Tobacco 01/27/25 13:02 Tobacco use type 11/11/24 08:25 e-Cigarette/Vaping Use Never Used 01/27/25 13:02 Thrive Assessment: Date of Thrive Assessment Date Thrive assessed 12/12/24 01/27/25 13:02 Currently or been in a relationship where the following occur: No concerns reported Const General: comfortable, no acute distress, alert and Physically active Nutritional Appearance: obese morbidly obese Orientation/consciousness: patient oriented x3 HENMT Face and sinus: Yes face symmetric Eyes General: appearance normal, both eyes and all related structures Neck Other: Supple, no lymphadenopathy, thyroid gland nonpalpable Resp Auscultation: clear to auscultation bilaterally Cardio Other: S1-S2 present regular rate and rhythm GI Other: Normal bowel sounds obese, soft, slight discomfort on palpation over right upper quadrant, with no rebound or guarding Back/Spine/Pelvis Thoracic/Lumbar Spine: thoraco-lumbar ROM normal, straight leg raise negative bilaterally and No paraspinal muscle tenderness Skin General skin exam: no rashes or lesions noted Neuro General: patient oriented x3, gait normal, tone normal, moves all extremities, Normal light touch and pain sensation, no focal motor deficits, CN's II-XI intact bilaterally and normal sensation to monofilament Extrem Other: crepitus right knee, flat feet General: Yes no joint enlargement, Yes no pedal edema and Yes normal gait Psych Appearance: grossly normal Mental Status: mental status grossly normal Speech and movement: Normal speech and movement present Affect: normal affect Coding Level of Care Code Est Pt Level 4 (40312) Diagnoses Lumbar degenerative disc disease M51.36 Assessment & Plan Assessment & Plan (1) Lumbar degenerative disc disease: Code(s): M51.36 - Other intervertebral disc degeneration, lumbar region Category: Medical Plan: Currently asymptomatic, continue to do exercises taught at physical therapy, and continue with massage therapy. 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
--- OUTSIDE RECORDS SUMMARY | 2025-01-27 13:29 | XMS_ITS | Patient Health Record ---
Author Organization [facility] Address [address] [place] [address] Care Team Providers Care System Trainer Name Role Phone Kiran LAZCANO, Carina Terry Primary Care Provider Un available Black, Britt Unavailable [phone] Allergies No Known Allergies Reason For Referral [...] primary osteoarthritis of the ankle and/or foot (398415199) Primary osteoarthritis, right ankle and foot (M19.071) Active confirmed Problem Localized, primary osteoarthritis of the ankle and/or foot (643843336) Primary osteoarthritis, left ankle and foot (M19.072) Active confirmed Problem Acquired hammer toe of right foot (2220694233014413 ) Other hammer toe(s) (acquired), right foot (M20.41) Active confirmed Problem Acquired hallux valgus (09594998) Acquired hallux interphalangeus of left foot (M20.12) Active confirmed Problem Acquired hallux valgus (13656345) Acquired hallux interphalangeus of right foot (M20.11) Active confirmed Plan Of Treatment No Information Insurance Providers Payer Name Payer Address Payer Phone Subscriber Number Group Number Insured Name Patient Relationship to Insured Coverage Start Date Coverage End Date [facility] [address] [place] [address] [phone] [id number] Gilma Munson Self - patient is the insured Medical (General) History Medical History History ICD Code Anxiety Shingles Cellulitis Broken bones covid-19 Depression Chicken pox Surgical History Surgery Date(Month/Year) Endometriosis Cyst Surgery
== END 2025-01-27 14:36 | disposition home or self-care (01) ==
LOC: HO.HMCC 12:46
PROVIDERS: PCP Internal Medicine; Visit Provider Internal Medicine
DX: M51.369 Other intervertebral disc degeneration, lumbar region without mention of lumbar back pain or lower extremity pain (principal)

== ENCOUNTER 2025-02-10 10:00 | Outpatient (RCR) | payer OTHER, SELFPAY ==
--- NOTE | 2024-12-19 15:08 | MHC.PT.EP ---
[facility] Office [place] Office [place] Office [address] Cristian Dixon [address] [phone] F: [phone] F: [phone] F: [phone] F: [phone] Physical Therapy Plan of Care Date of Evaluation: 12/19/24 Date of Surgery: Diagnosis: This is a 49 yo female presenting to skilled PT with a script for radiculopathy, lumbar region. Assessment: This is a 49 yo female presenting to skilled PT with a script for radiculopathy, lumbar region. She reports of having pain for many years. She denies having any trauma or injury however does state that last summer/fall she threw her back out when she rolled out of bed. She had PT for this and seemed to help a little along with lidocaine. 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 She saw a chiropractor that did MET and exercise which seemed to help (still currently seeing her). She was getting back and leg pain at the time. She had a cortisone injection a little over a week ago and this seemed to help resolve a lot of her back and leg symptoms. She currently reports having intermittent pain now. Pain improves with different positions but feels better when she walks. She is independent with all ADLS but has pain with them. She still sees the chiropractor once a week and does pelvic tilts, belly breathing, marching standing with band, core stab lifts, bridge (every day) but this is out of network she has to pay for it. Assessment reveals pain that ranges from up to a 1-10/10 at the worst. Patient demos decreased lumbar and thoracic ROM, strength of core, back and gluts, TTP at lumbar soft tissue surroundings and sacrum and impaired posture with forward head, trunk, knee valgus and rounded shoulders. Based on functional limitations, impaired QOL and pain tolerance patient is a good candidate for skilled PT 2x/wk for 4wks. Frequency and Duration: The patient will be seen 2x/wk for 4wks Short Term Goals: Pt will demonstrate improved postural awareness and understanding of core engagement with supine and standing tasks without cues throughout session to improve overall back safety in 2 weeks. Pt will demonstrate centralization of sx in 2 weeks. Pt will continue to reinforce precautions, sitting, standing and ADL modifications with proper body mechanics in 2 wks. Family Practice Md Goals: Pt will demonstrate improved outcome measure by 5 points in 4 weeks for improved functional mobility. Pt will demonstrate ability to bend and lift WNL min to no pain for household tasks in 4 wks. Pt will be I in HEP and compliant in 4wks Treatment Plan: Modalities to reduce pain, spasms and effusion. Manual therapy to restore motion and function. Therapeutic exercise to improve strength and flexibility. Neuromuscular re-education for posture and balance. Therapeutic activities to return to functional activities of daily living. Electronically signed by: Yocasta Howe PT Please sign and return to therapist. Thank you for your referral.
--- NOTE | 2025-03-13 06:05 | MHC.PT.DC ---
[facility] [place] [facility] [place] Office [place] [facility] [address] Cristian Dixon [address] [phone] F: [phone] F: [phone] F: [phone] F: [phone] Physical Therapy Discharge Report Diagnosis: This is a 49 yo female presenting to skilled PT with a script for radiculopathy, lumbar region. Date of Surgery: Date of Evaluation: 12/19/24 Date of Discharge: 03/13/25 Treatments to Date: 13 Cancellations to Date: 0 No Shows to Date: 0 Discharge Status: Achieved Goals Improved Function Independent with HEP Patient Elected to Stop Discharge Summary: Patient came to 13 visits of PT. Pain was well managed, patient had returned to work, returned to normal ADLs and hobbies and was I In her program. At this time she has met her goals and ready for DC. She did not make further appointments and her chart was DC'd after 30 days. Electronically signed by: Yocasta Howe, PT Please sign and return to therapist. Thank you for your referral.
== END 2025-03-13 06:05 | disposition home or self-care (01) ==
LOC: HO.PTCHIC 10:00
PROVIDERS: PCP Internal Medicine; Visit Provider Nurse Practitioner Family
DX: M43.16 Spondylolisthesis, lumbar region (principal); M51.27 Other intervertebral disc displacement, lumbosacral region; M51.369 Other intervertebral disc degeneration, lumbar region without mention of lumbar back pain or lower extremity pain; M54.16 Radiculopathy, lumbar region
CPT/HCPCS: 97110; 97161; 97530

== ENCOUNTER 2025-03-02 07:52 | Outpatient (AMB) | payer OTHER, SELFPAY ==
--- OUTSIDE RECORDS SUMMARY | 2025-03-02 07:55 | XMS_ITS | Patient Health Record ---
Author Organization [facility] Address [address] [place] [address] Care Team Providers Care Marketing Assistant Name Role Phone Kiran LAZCANO, Carina Terry Primary Care Provider Un available Black, Britt Unavailable [phone] Allergies No Known Allergies Reason For Referral [...] primary osteoarthritis of the ankle and/or foot (537249409) Primary osteoarthritis, right ankle and foot (M19.071) Active confirmed Problem Localized, primary osteoarthritis of the ankle and/or foot (972610316) Primary osteoarthritis, left ankle and foot (M19.072) Active confirmed Problem Acquired hammer toe of right foot (7730409249536016 ) Other hammer toe(s) (acquired), right foot (M20.41) Active confirmed Problem Acquired hallux valgus (34097487) Acquired hallux interphalangeus of left foot (M20.12) Active confirmed Problem Acquired hallux valgus (60427069) Acquired hallux interphalangeus of right foot (M20.11) Active confirmed Plan Of Treatment No Information Insurance Providers Payer Name Payer Address Payer Phone Subscriber Number Group Number Insured Name Patient Relationship to Insured Coverage Start Date Coverage End Date [facility] [address] [place] [address] [phone] [id number] Gilma Munson Self - patient is the insured Medical (General) History Medical History History ICD Code Anxiety Shingles Cellulitis Broken bones covid-19 Depression Chicken pox Surgical History Surgery Date(Month/Year) Endometriosis Cyst Surgery
--- OUTSIDE RECORDS SUMMARY | 2025-03-02 07:55 | XMS_ITS | Clinical Summary ---
Author Organization [facility] Address [address] [place] [address] Phone Care Team Providers Care Theatrical Dresser Name Role Phone Elias England MD Unavailable [phone] Carina Beck MD Primary Care Provider Allergies No known active allergies Medications levonorgestrel (MIRENA) 20 mcg/24 hr (5 years) intrauterine device as directed Intrauterine Active NAPROXEN SODIUM (ALEVE ORAL) as needed. Orally Active acetaminophen (TYLENOL) 500 MG tablet Take 500 mg by mouth as needed for pain (specific location in comments). Active ibuprofen (ADVIL,MOTRIN) 200 MG tablet Take 200 mg by mouth as needed for pain (specific location in comments). Active sulfamethoxazole -trimethoprim (BACTRIM,SEPTRA) 400-80 mg per tablet Take 1 tablet by mouth 2 (two) times a day. Active diclofenac sodium (VOLTAREN) 50 MG EC tablet 1 tablet as needed Orally Twice a day for 30 days Active lidocaine (LIDODERM) 5 % APPLY 1 PATCH TOPICALLY DAIY FOR PAIN 4 Active cyclobenzaprine (FLEXERIL) 5 MG tablet TAKE 1 TABLET BY MOUTH 3 TIMES A DAY NEEDED FOR MUSCLE SPASM FOR 3 DAYS 4 Active oxyCODONE 5 MG immediate release tablet 4 Active gabapentin (NEURONTIN) 300 MG capsule TAKE 1 CAPSULE BY MOUTH EVERY 12 HOURS FOR PAIN FOR 30 DAYS 4 Active Active Problems Problem Noted Date Diagnosed Date IUD (intrauterine device) in place 06/07/2020 Overview (06/07/2020): Pt unsure when inserted (2011 or 2012) Assessment & Plan (06/10/2020 5:12 PM EST): Recommend removal/reinsertion. Advised that Mirena can be effective for prevention for 6 years thus would use back up contraception. Papanicolaou smear of cervix with low grade squamous intraepithelial lesion (LGSIL) 12/24/2018 Overview (06/07/2020): 2019: LGSIL/HPV neg -> colpo benign Assessment & Plan (06/10/2020 5:12 PM EST): Chart reviewed and pap history noted, repeat pap due and done today. Immunizations Immunization Administration Dates Next Due DTP 05/23/1980, 8,1976,1975,1976 INFLUENZA, SPLIT VIRUS, TRIVALENT PF 04/26/2012 INFLUENZA, SPLIT VIRUS, TRIV ALENT W/ PRESERVATIVE IM 06/09/2011 Influenza, Unspecified Formulation 08/11/1986 Measles 05/23/1977 Mumps 05/23/1977 Polio - OPV 05/23/1980, 8,1976,1975,1976 Rubella 05/23/1977 Td, unspecified formulation 01/26/2003 Tdap 06/03/2010 Family History Medical History Relation Comments CV disease Father Diabetes mellitus Father Heart disease Father Uterine cancer Mother CV disease Paternal Grandmother Diabetes mellitus Paternal Grandmother Heart disease Paternal Grandmother Relation Status Comments Father Mother Paternal Grandmother Social History Tobacco Use Types Packs/Day Years Used Date Smoking Tobacco: Never Smokeless Tobacco: Never Alcohol Use Standard Drinks/Week Comments Yes 0 (1 standard drink = 0.6 oz pur e alcohol) rarely Education Answer Date Recorded Are you interested in more education? Not on valentino e 11/17/2022 Are you concerned about learning? Not on file 11/17/2022 No 11/17/2022 No 11/17/2022 Digital Access Answer Date Recorded No 12/15/2022 No 12/15/2022 Reliable internet access at home? Not on file 12/15/2022 Device with a working camera? Not on file Comments No Sex and Gender Information Value Date Recorded Sex Assigned at Female 06/25/2024 9:57 AM EST Legal Sex Female 9:27 PM EDT Gender Identity Female 06/25/2024 9:57 AM EST Sexual Orientation Not on file Last Filed Vital Signs Vital Sign Reading Time Taken Comments Blood Pressure 122/78 06/25/2024 9:15 AM EST Pulse - - Temperature - - Respiratory Rate - - Oxygen Saturation - - Inhaled Oxygen Concentration - - Weight 137.4 kg (303 lb) 06/25/2024 9:15 AM EST Height 161.9 cm (5' 3.75 ) 06/25/2024 9:15 AM ES T Body Mass Index 52.42 06/25/2024 9:15 AM EST Plan of Treatment Health Maintenance Due Date Last Done Comments LIPID PANEL 1976 DEPRESSION SCREENING 1988 SCREENING FOR DIABETES 02/11/2011 MAMMOGRAM 2016 COLOGUARD 02/11/2021 COLONOSCOPY 02/11/2021 COLORECTAL CANCER SCREENING 02/11/2021 FIT TEST 02/11/2021 FOBT 02/11/2021 SIGMOIDOSCOPY 02/11/2021 VIRTUAL COLONOSCOPY 02/11/2021 COVID-19 VACCINE ( season) 2024 10/03/2021, 11/01/2020 PAP SMEAR 06/25/2025 06/25/2024, 05/23, 06/07/2020, Additional history exists IUD 04/12/2029 04/12/2021 Adult Td,Tdap Booster 03/03/2032 03/03/2022 , 06/03/2010, 01/26/2003 HEPATITIS C SCREENING Completed 06/25/2024 HIV ONE-TIME SCREENING (18-65 YEARS) Completed 06/25/2024 SMOKING STATUS SCREENING (Once After 26 Yrs) Completed 06/25/2024 HEPATITIS A VACCINES Aged Out No long er eligible based on patient's age to complete this topic HIB VACCINES Aged Out No longer eligi ble based on patient's age to complete this topic MENINGOCOCCAL VACCINES (ACWY) Aged Out No longer eligible based on patient's age to complete this topic MENINGOCOCCAL VACCINES (B) Aged Out N o longer eligible based on patient's age to complete this topic PNEUMOCOCCAL VACCINES (0-49 years) Aged Out No longer eligible based on patient's age to complete this topic Medical Devices Implanted Type Area Commercial Fishing Vessel Operator Device Identifier Shelf Expiration Date Model / Serial / Lot Iud Implanted: (Quantity not on file) Intrauterine Device Procedures Procedure Name Priority Date/Time Associated Diagnosis Comments HEPATITIS C ANTIBODY, QUALITATIVE Routine 06/25/2024 9:57 AM EST Screening for STD (sexually transmitted disease) PAP TEST Routine 06/25/2024 12:00 AM EST from Last 3 Months or Most Recently Relevant to Health Maintenance Results * Hepatitis C antibody, qualitative (06/25/2024 9:57 AM EST) HCV NON-REACTIV E NON-REACTI VE [facility] Blood 06/25/2024 9:57 AM EST 06/25/2024 10:01 AM EST us Elias England MD LAB BLOOD ORDERABLES [facility] [place] Organization Address City/State/[facility] Co de Phone Number [address] [address] * Pap Test (06/25/2024 12:00 AM EST) 06/25/2024 06/26/2024 9:4 8 AM EST Narrative SEE NARRATIVE - 06/30/2024 11:48 AM EST [address] [address] Fur Dry Cleaner: Nicko Howard MD HAIR TINTER Cytology Report FINAL DIAGNOSIS A. PAP SMEAR (THIN PREP) CE: SPECIMEN ADEQUACY: Satisfactory for evaluation; transformation zone absent/insufficient. INTERPRETATION: NEGATIVE FOR INTRAEPITHELIAL LESION OR MALIGNANCY. Coccobacilli consistent with shift in melia This specimen was analyzed by the automated ThinPrep Imaging System ([employer] and the selected garber were reviewed by a funeral service apprentice. Electronically Signed Out By: RISSA Bailey(ASCP) The Pap test is a screening test primarily for squamous cancers and precursors and has associated false-negative and false-positive results. New technologies such as liquid-based preparations may decrease but will not eliminate all false-negative results. Regular sampling and follow-up of unexplained clinical signs and symptoms are recommended to minimize false negative results. PROCEDURES/ADDENDA HPV Testing (Requested) Ordered Date: 06/26/2024 A. PAP SMEAR (THIN PREP) CE: High-risk HPV Panel w/ extended genotyping NEG HPV 16-NEG HPV 18-NEG HPV 45-NEG HPV 33/58-NEG HPV 31-NEG HPV 56/59/66-NEG HPV 51-NEG HPV 52-NEG HPV 35/39/68-NEG Performed by real-time polymerase chain reaction (PCR) at [facility], [address] [place] [address] using the FDA-approved [employer] Onclarity9 HPV Assay with extended genotyping. Uses of the assay in scenarios other than those approved by the FDA should be considered off-label use. The accuracy and precision of this test for all other off-label specimen sources has been verified in the Cytopathology Laboratory of the [facility] and has not been cleared or approved by the U.S. Food and Drug Administration. Clinical correlation is advised. The assay assesses the E6/E7 DNA target and utilizes human beta globin as an internal control. Cytology and HPV testing are screening assays and should not be used as the sole means of detecting cancer. False-positives and false-negatives can occur. CLINICAL HISTORY Date of Last Menstrual Period: Not Provided Menstrual History: Amenorrhea Contraceptive History: IUD Other Clinical Conditions: Screening Pap SPECIMEN SOURCE A: PAP SMEAR (THIN PREP) CE Patient Name: GILMA JOHNSON : 1975 (Age: 49) Sex: F [facility]: [facility] Location: [facility] Date of Collection: 06/25/2024 Date of Reported: 06/30/2024 11:48 Results to: Elias England MD, BS us Elias England MD CYTOLOGY ORDERABLES Final Res ult SEE NARRATIVE from Last 3 Months or Most Recently Relevant to Health Maintenance Insurance [employer] Member Subscriber Plan / Payer (Ef fective 2023-Present) Name:RobbyGilma littlejohn Relation to Subscriber:Self Name:Gilma Johnson Payer ID:[id number] (NAIC) Type:PPO Address: [address] [place] [employer] Member Subscriber Plan / Payer (Ef fective 2023-Present) Name:Elaine Johnsonna Relation to Subscriber:Self Name:Gilma Johnson Payer ID:[id number] (NAIC) Type:PPO Address: [place] [id number] [employer] Care Teams Theatrical Dresser Relationship Specialty Start Date End Date Carina Beck MD [address] [place] [address] PCP - General Internal Medicine 02/28/21 Elias England MD [address] [place] [id number] [email or web address] Historical LMR Provider 05/09/17 Additional Source Comments The information contained in this document represents components of the legal health record. It is not the complete legal health record.[facility]
[2025-03-02 08:13] VITALS: BP 134/86; PULSE 82; O2SAT 95; BMI 54.1
--- NOTE | 2025-03-02 08:13 | A.OFFVIS_ITS ---
Vital Signs 03/02/25 08:13 Height 5 ft 4 in Weight 315 lb 6 oz BMI 54.1 BP 134/86 Blood Pressure Location Rt brachial Position Sitting Pulse 82 Pulse Source Pulse Oximeter Pulse Oximetry (%) 95 Oxygen Delivery Method Room Air Intake Visit Reasons: 6 mo follow up Intake Note: Patient presents follow up ADRYAN. Compliance/Labs in chart. Allergies No Known Allergies Allergy (Verified 03/02/25 08:16) HPI Comments Details: History of Present Illness The patient is a 50-year-old female presenting with a follow-up for severe obstructive sleep apnea. The patient reports a high compliance with her CPAP therapy, utilizing the device 98% of the time, with an average usage of 6 hours and 21 minutes per night and achieving 89% of usage greater than 4 hours during the period of November 25, 2024, through February 22, 2025. The CPAP is set at 9 cm H2O with the EPR off, and the average leak is noted to be 0.7 L per minute with a residual AHI of 3 events per hour. The patient highlights a significant improvement in her quality of life following the use of the new CPAP machine, experiencing life-changing improvements in sleep quality. The patient also narrates a history of chronic back issues which led to her being on a four-month FMLA due to a back injury, during which she finally experienced adequate restorative nocturnal sleep. Upon return to her nocturnal work shifts, she reports a return of fatigue presumably related to her work schedule. The patient describes difficulties in sleeping during the daytime despite utilizing a dark room and eye cover, and reports having tried adjusting lifestyle habits without significant relief. The patient indicates a shift to part-time work scheduled to align better with her future educational endeavors, allowing her some periods of nocturnal sleep. Patient has not yet started Modafinil, previously ordered for excessive daytime sleepiness. Weight loss clinic ordered zepbound, but this was denied by her insurance d/t a formulary exception. 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 - Musculoskeletal: Reports chronic back pain exacerbated by certain activities. Results - October 2024, HbA1c: 6.1% CPAP compliance review: Does patient have sufficient PAP supplies? Yes Does patient clean PAP supplies on a regular basis? Yes Does the patient use distilled water in their PAP machine water reservoir? n/a- does not use the humidifier Respiratory company and CPAP info: [facility] [address] [facility], [address] Email: AirSense 11 AutoSet Serial number [id number] PAP compliance report reviewed Compliance report date range: November 25, 2024 through February 22, 2025 Overall usage: 98 percent Usage greater than 4 hours: 89 percent PAP setting: CPAP 9 cmH2O Average usage on days used: 6 hours and 21 minutes Average mask leakage: 0.7 LPM Residual AHI: 3 per hour 09/10/2024, previous HPI: Since the last visit, 03/19/2024, in-lab split night PSG: Sleep efficiency 91%, REM latency 125 minutes. Diagnostic portion of PSG showed AHI 101/hour and REM AHI January 09/hour, average SpO2 88% with O2 renzo 63% Titration portion PSG showed AHI 2.3/hour, average SpO2 92% O2 renzo 85%, and SpO2 under 88% for 0.1 minutes, with optimization of sleep apnea and oxygenation level on CPAP 9 cm H2O. Since, patient states she is sleeping better with her CPAP machine. However, she states she was initially fitted with a nasal pillow, however found that the nasal mask she had is a better fit. She has improved though still low daytime energy, she states now she can now go to more than 1 stores in a single day without fallng asleep. However still has daytime sleepiness whne inactive. 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 So sometimes her sleep is fragmented, and on her days off she may sleep much longer. Though, generally she feels like she is more of a night person. She is curious if she would benefit from taking sleep medication, though is not sure if you would even take it. [facility] [address] [facility], [address] Email: Compliance Report Usage 08/12/2024 - 09/10/2024 Usage days 30/30 days (100%) >= 4 hours 19 days (63%) < 4 hours 11 days (37%) Usage hours 158 hours 55 minutes Average usage (total days) 5 hours 18 minutes Average usage (days used) 5 hours 18 minutes Median usage (days used) 5 hours 37 minutes Total used hours (value since last reset - 09/10/2024) 411 hours AirSense 11 AutoSet Serial number [id number] Mode CPAP Set pressure 9 cmH2O EPR Off Therapy Leaks - L/min Median: 0.3 95th percentile: 4.9 Maximum: 60.9 Events per hour AI: 3.8 HI: 0.4 AHI: 4.2 02/26/24, Previous HPI: Previous HST (prior to 2020) revealed AHI 127.3/hr with O2 renzo 68%. She was never able to undergo in-lab PAP titration study as previous insurance denied request. Patient reports she has been complaint w/ her APAP. She is not sure if the air pressure is correct. She still snores when using her mask. She always feels tired. Can easily fall asleep when inactive. She has strategies to reduce sleepiness while driving- naps, breaks, avoids driving at night. 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 usually tolerates working nights well, unless assigned to one-to-one patinet sitter, as she can become very sleepy. Hypersomnolence questionnaire: Have you ever had episodes of sudden weakness? Sometimes her phone may drop out of her hand- not associated with strong emotion. Have you ever had episodes of sudden weakness associated with strong emotions? Denies. Sleep hygiene questionnaire: What is your usual sleep routine? Workday routine- Usual bedtime is at 8:30am through 3-3:30pm. Usual days off routine- 12am through 7-8am. Do you take naps? Unintentional naps and can nap all day. Is your sleep environment cool, dark, and quiet? Yes Do you exercise? She was swimming. Does some hiking, outdoor biking. Has been having some back issues and leg spams- seeing a chiropractor. There is an order in place for XR lumbar spine. Do you take caffeine or other stimulants? Celius energy drink. Do you use electronics in bed? 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 Usage 01/26/2024 - 02/24/2024 Usage days 28/30 days (93%) Usage days >= 4 hours 24 days (80%) Usage days < 4 hours 4 days (13%) Average usage (days used) 5 hours 21 minutes Median usage (days used) 4 hours 56 minutes Total used hours (value since last reset - 02/24/2024) 5,856 hours AirS[employer] 10 AutoSet Serial number [id number] Mode AutoSet Min Pressure 5 cmH2O Max Pressure 20 cmH2O EPR Fulltime EPR level 3 Response Standard Therapy Pressure Maximum Pressure: 15.6 cmH2O Leaks - L/min Median: 0.2 95th percentile: 4.0 Maximum: 49.8 Residual events per hour AI: 2.9 HI: 0.2 AHI: 3.1 PFSH Medical History Bilateral anterior knee pain History of urinary incontinence Acute lumbar radiculopathy Pes planus of both feet Adenomyomatosis of gallbladder Varicose veins of left lower extremity Impaired fasting glucose Vitamin D deficiency Obstructive sleep apnea treated with continuous positive airway pressure (CPAP) History of 2019 novel coronavirus disease (COVID-19) Cysts of both ovaries Surgical History Hx of adenoidectomy Family History Father Diabetes CVD (cardiovascular disease) Stroke Mother Mental health disorder Sister Anxiety Diabetes Substance abuse Mental health disorder Maternal Uncle Hypertension Social History Housing: Apartment Alcohol intake: current Alcohol intake frequency: holidays/special occasions only Patient Tobacco Use Status: Never used Tobacco Years Smoked: 0 e-Cigarette/Vaping Use: Never Used Current occupational status: employed Current occupation: [employer] @ [employer] Cognitive needs: No Hearing needs: No Vision needs: No Physical Exam Vital Signs: Last Vital Signs Pulse 82 03/02/25 08:13 BP 134/86 03/02/25 08:13 Pulse Ox 95 03/02/25 08:13 Oxygen Delivery Method Room Air 03/02/25 08:13 BMI result Body Mass Index 54.1 Const General: cooperative, healthy appearing, comfortable and no acute distress Orientation/consciousness: patient oriented x3 Resp Effort & Inspection: normal respiratory effort and able to speak in complete sentences Neuro General: patient oriented x3 Psych Mental Status: mental status grossly normal Speech and movement: Clear speech present Attitude: cooperative Assessment & Plan Assessment & Plan (1) Severe obstructive sleep apnea: Code(s): G47.33 - Obstructive sleep apnea (adult) (pediatric) Category: Medical (2) Muscle spasm: Code(s): M62.838 - Other muscle spasm Category: Medical (3) Fatigue: Comment: Shift work disorder Code(s): R53.83 - Other fatigue Category: Medical Qualifiers: Fatigue type: other Qualified Code(s): R53.83 - Other fatigue (4) Excessive daytime sleepiness: Code(s): G47.19 - Other hypersomnia Category: Medical (5) Vitamin D deficiency: Code(s): E55.9 - Vitamin D deficiency, unspecified Category: Medical (6) 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 We discussed her continued struggles to maintain adequate daytime sleep due to her current work schedule combined with her nocturnal sleep pattern. I recommended consideration of melatonin to aid daytime sleep in alignment with her night shifts. The patient reported transitioning soon to part-time work, reducing the burden of shift work, which may improve her sleep cycle. Continued adherence to CPAP usage is strongly advised, optimizing her episodes of restful sleep. Discussion regarding exercise therapy tailored to her physical needs was also highlighted as beneficial to her musculoskeletal health. I advised the patient to consider contacting her insurance provider to clarify coverage for medications not provided, like Zepbound, considering her pre-diabetic state, severe ADRYAN, and BMI > 50.. Plan - Encourage continued adherence to CPAP therapy at 9 cm H2O with EPR off to manage severe obstructive sleep apnea, focusing on maintaining high compliance levels as demonstrated, as patient is having good clinical effect from use. * Clean and change PAP supplies routinely, including filters, masks, tubing, and water reservoir. 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 - Highlight the importance of maintaining physical activity and engaging in specific core strengthening exercises to manage chronic back pain. Recommend continuation of such activities given the improvement noted with previous therapy. - Advise on practical measures such as wearing sunglasses when exiting bright environments and maintaining a consistent sleep schedule whenever feasible. - Suggest the patient contact her insurance provider to evaluate options or alternatives available for pharmacotherapy in managing weight and metabolic risk, currently indicated for her pre-diabetic and ADRYAN status. - Reinforce the importance of proper eye protection to mitigate the bright light exposure that can disrupt circadian rhythms. - Trial modafinil for periods of excessive daytime sleepiness. Patient was informed and verbally consented to the use of an ambient scribe for clinic note documentation during this visit. Pt to follow-up in 6 months or sooner prn. Coding Level of Care Code Est Pt Level 3 (95009) Diagnoses Severe obstructive sleep apnea G47.33 Muscle spasm M62.838 Other fatigue R53.83 Fatigue type: other Excessive daytime sleepiness G47.19 Vitamin D deficiency E55.9 Hypervitaminosis B6 E67.2
== END 2025-03-02 09:07 | disposition home or self-care (01) ==
LOC: HO.HSMS 07:53
PROVIDERS: PCP Internal Medicine; Visit Provider Nurse Practitioner Family
DX: G47.33 Obstructive sleep apnea (adult) (pediatric) (principal); M62.838 Other muscle spasm; R53.83 Other fatigue; G47.19 Other hypersomnia; E55.9 Vitamin D deficiency, unspecified; E67.2 Megavitamin-B6 syndrome
CPT/HCPCS: 99213

== ENCOUNTER 2025-04-28 11:05 | Outpatient (REF) | payer OTHER, SELFPAY ==
--- NOTE | ~2025-04-28 | XR_ITS ---
EXAMINATION: XR KNEE, LEFT CLINICAL INFORMATION: M25.569 - Pain in unspecified knee COMPARISON: 07/28/2021 TECHNIQUE: Three views of the left knee. FINDINGS: There is severe narrowing of the medial joint space, increased since the prior. There is lateral patellar tilt. There are tricompartmental osteophytes. There is no joint effusion. XR/XR knee LT 3V IMPRESSION: Severe osteoarthritis, increased since the prior. Lateral patellar tilt, stable since the prior. Electronically signed by: Josh Avila MD 04/28/2025 01:42 PM EDT
--- NOTE | ~2025-04-28 | XR_ITS ---
EXAMINATION: XR KNEE, RIGHT CLINICAL INFORMATION: M25.569 - Pain in unspecified knee COMPARISON: January 05 2022 TECHNIQUE: Three views of the right knee. FINDINGS: There is mild/moderate narrowing of the medial joint space. There is mild narrowing of the lateral joint space. There is no joint effusion. There are tricompartmental marginal osteophytes. There is lateral patellar tilt similar to the prior. XR/XR knee RT 3V IMPRESSION: Mild to moderate osteoarthritis with joint space narrowing slightly increased from the prior. Lateral patellar tilt. Electronically signed by: Josh Avila MD 04/28/2025 01:44 PM EDT
== END 2025-04-28 11:06 | disposition home or self-care (01) ==
LOC: HO.HOSX 11:05
PROVIDERS: Visit Provider Physician Assistant
DX: M17.0 Bilateral primary osteoarthritis of knee (principal)
CPT/HCPCS: 20610; 73562; J0665; J1100; J2003

== ENCOUNTER 2025-04-28 13:29 | Outpatient (AMB) | payer OTHER, SELFPAY ==
--- NOTE | 2025-04-28 13:31 | MHC.OFFVIS ---
Vital Signs 04/28/25 13:32 Height 5 ft 4 in Weight 315 lb BMI 54.1 Intake Visit Reasons: OV Bilat knee pain Intake Note: Gilma is a 50 year old female who presents today for a follow up of her bilateral knee OA, last injection was three years ago and stated the cortisone injections worked well. Patient also reported that her left knee is worse than her right, she has been using lidocaine patch on back of knee, Diclofenac, Gabapentin, as well as Tylenol for pain. Patient reported the pain feels like sharp piercing, and jagged. Allergies No Known Allergies Allergy (Verified 04/28/25 14:01) HPI HPI OV Bilat knee pain: Details: Ms. Munson is a 50-year-old female who presents to the office today for bilateral knee pain. Her last cortisone injection was 3 years ago and reports that this injection worked very well for her. Her left knee is more painful than her right. She uses a lidocaine patch on the back of the knee occasionally as well as diclofenac gabapentin and Tylenol for pain. [facility] Medical History Bilateral anterior knee pain History of urinary incontinence Acute lumbar radiculopathy Pes planus of both feet Adenomyomatosis of gallbladder Varicose veins of left lower extremity Impaired fasting glucose Vitamin D deficiency Obstructive sleep apnea treated with continuous positive airway pressure (CPAP) History of 2019 novel coronavirus disease (COVID-19) Cysts of both ovaries Surgical History Hx of adenoidectomy Family History Father Diabetes CVD (cardiovascular disease) Stroke Mother Mental health disorder Sister Anxiety Diabetes Substance abuse Mental health disorder Maternal Uncle Hypertension Social History Housing: Apartment Alcohol intake: current Alcohol intake frequency: holidays/special occasions only Patient Tobacco Use Status: Never used Tobacco Years Smoked: 0 e-Cigarette/Vaping Use: Never Used Current occupational status: employed 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 No ecchymosis, erythema, or joint effusion. ROM is 0-100 degrees. Mild crepitus felt with ROM. NVI. Office Procedures AMB Joint Injection/Aspiration Joint Injection/Aspiration Primary Site: right knee Secondary Site: left knee Prep: site was prepped using aseptic technique, ethochloride spray was applied and injection warnings given Injected: 40 mg of, with 3 mL of, 1% plain lidocaine, 0.25% bupivacaine, in the joint and decadron Approach Used: anterolateral Procedure: The patient tolerated the procedure well, but had some pain with the injection and there was some relief with the local anesthesia Coding 79860 - Bilateral Large Joint Procedure code (CPT) selection complete Assessment & Plan Assessment & Plan (1) Osteoarthritis of right knee: Code(s): M17.11 - Unilateral primary osteoarthritis, right knee Category: Medical (2) Osteoarthritis of left knee: Code(s): M17.12 - Unilateral primary osteoarthritis, left knee Category: Medical Plan The patient was offered a cortisone injection in bilateral knees. The patient was explained the risks, benefits, and alternatives to receiving this injection. After receiving consent for the injection, the patient had the procedure done while in the office today. The patient tolerated the procedure well with no complications. Follow-up will be PRN, or sooner if needed X-rays of the bilateral knees which were obtained while in the office today and were reviewed by me, Kiki Snyder PA-C, revealed osteoarthritis. Orders: Orders XR knee RT 3V Today M25.569 - Pain in unspecified knee XR knee LT 3V Today M25.569 - Pain in unspecified knee Coding Level of Care Code Est Pt Level 3 (22763) Diagnoses Osteoarthritis of right knee M17.11 Osteoarthritis of left knee M17.12 CPT Codes Coding - 17632 - Bilateral Large Joint: 77689 - Bilateral Large Joint ([id number])
[2025-04-28 13:32] VITALS: BMI 54.1
--- OUTSIDE RECORDS SUMMARY | 2025-04-28 16:34 | XMS_ITS | Patient Health Record ---
[facility] Address [address] [place] [address] Care Team Providers Care Mattress Spring Encaser Name Role Phone Kiran LAZCANO, Carina Terry Primary Care Provider Un available Black, Britt Unavailable [phone] Allergies No Known Allergies Reason For Referral [...] primary osteoarthritis of the ankle and/or foot (966154039) Primary osteoarthritis, right ankle and foot (M19.071) Active confirmed Problem Localized, primary osteoarthritis of the ankle and/or foot (659964020) Primary osteoarthritis, left ankle and foot (M19.072) Active confirmed Problem Acquired hammer toe of right foot (2021354422044745 ) Other hammer toe(s) (acquired), right foot (M20.41) Active confirmed Problem Acquired hallux valgus (49697161) Acquired hallux interphalangeus of left foot (M20.12) Active confirmed Problem Acquired hallux valgus (39773899) Acquired hallux interphalangeus of right foot (M20.11) Active confirmed Plan Of Treatment No Information Insurance Providers Payer Name Payer Address Payer Phone Subscriber Number Group Number Insured Name Patient Relationship to Insured Coverage Start Date Coverage End Date [facility] [address] [place] [address] [phone] [id number] Gilma Munson Self - patient is the insured Medical (General) History Medical History History ICD Code Anxiety Shingles Cellulitis Broken bones covid-19 Depression Chicken pox Surgical History Surgery Date(Month/Year) Endometriosis Cyst Surgery
--- OUTSIDE RECORDS SUMMARY | 2025-04-28 16:34 | XMS_ITS | Clinical Summary ---
Author Organization [facility] Address [address] [place] [address] Phone Care Team Providers Care Taxi Truck Driver Name Role Phone Elias England MD Unavailable [phone] Carina Beck MD Primary Care Provider Allergies [...] FOBT 02/11/2021 SIGMOIDOSCOPY 02/11/2021 VIRTUAL COLONOSCOPY 02/11/2021 INFLUENZA VACCINE (#1) 2025 2, 05/04/2016, 03/25/2015, Additional history exists COVID-19 VACCINE ( season) 2025 10/03/2021, 11/01/2020 PAP SMEAR 06/25/2025 06/25/2024, 05/23, [...] this topic Medical Devices Implanted Type Area Feed Miller Device Identifier Shelf Expiration Date Model / [...] AM EST) HCV NON-REACTIV E NON-REACTI VE [facility] Blood 06/25/2024 9:57 AM EST 06/25/2024 10:01 AM EST us Elias England MD LAB BLOOD ORDERABLES Final Re [facility] Organization Address City/State/[facility] Co de Phone Number [address] [address] * Pap Test (06/25/2024 12:00 AM EST) 06/25/2024 06/26/2024 9:4 8 AM EST Narrative SEE NARRATIVE - 06/30/2024 11:48 AM EST [address] [address] Household Appliance Mechanic: Nicko Howard MD ASSISTANT PROFESSOR OF ENGLISH Cytology Report FINAL DIAGNOSIS A. PAP SMEAR (THIN PREP) CE: SPECIMEN ADEQUACY: Satisfactory for evaluation; transformation zone absent/insufficient. INTERPRETATION: NEGATIVE FOR INTRAEPITHELIAL LESION OR MALIGNANCY. Coccobacilli consistent with shift in melia This specimen was analyzed by the automated ThinPrep Imaging System (Phorest Mayra.) and the selected garber were reviewed by a service establishment attendant. Electronically Signed Out By: RISSA Bailey(ASC) The Pap test is a screening test [...] by real-time polymerase chain reaction (PCR) at [address] using the FDA-approved BD Onclarity9 HPV Assay with extended genotyping. Uses of the assay in scenarios other than those approved by the FDA should be considered off-label use. The accuracy and precision of this test for all other off-label specimen sources has been verified in the Cytopathology Laboratory of the [facility] and has not been cleared or [...] : 1975 (Age: 49) Sex: F Institution: [facility] Location: [facility] Date of Collection: 06/25/2024 Date of Reported: 06/30/2024 11:48 Results to: Elias England MD, BS Elias England MD CYTOLOGY ORDERABLES Final Res ult SEE NARRATIVE from Last 3 Months or Most Recently Relevant to Health Maintenance Insurance [employer] Member Subscriber Plan / Payer (Ef fective 2023-Present) Name:Gilma Johnson Relation to Subscriber:Self Name:Gilma Johnson Payer ID:[id number] (NAIC) Type:PPO Address: [address] [employer] Member Subscriber Plan / Payer (Ef fective 2023-Present) Name:[place]an[place]olin Gilma Relation to Subscriber:Self Name:Gilma Johnson Payer ID:[id number] (NAIC) Type:PPO Address: [place] [id number] [employer] Member Subscriber Plan / Payer (Ef fective 2023-Present) Name:Gilma Johnson Relation to Subscriber:Self Name:Gilma Johnson Payer ID:[id number] ([facility]) Type:PPO Address: [place] [phone] [employer] Member Subscriber Plan / Payer (Ef fective 2023-Present) Name:Arpit Gilma Relation to Subscriber:Self Name:Gilma Johnson Payer ID:[id number] ([facility]) Type:PPO Address: [address] [employer] Member Subscriber Plan / Payer (Ef fective 2023-Present) Name:Gilma Johnson Relation to Subscriber:Self Name:ArpitGilma Payer ID:[id number] ([facility]) Type:PPO Address: [place] [id number] [employer] Care Teams Taxi Truck Driver Relationship Specialty Start Date End Date Carina Beck MD [facility] [place] [address] PCP - General Internal Medicine 02/28/21 Elias England MD [address] [place] [id number] [email or web address] Historical LMR Provider 05/09/17 Additional Source Comments The information contained in this document represents components of the legal health record. It is not the complete legal health record.[facility]
== END 2025-04-28 14:29 | disposition home or self-care (01) ==
LOC: HO.HOS 13:30
PROVIDERS: PCP Internal Medicine; Visit Provider Physician Assistant
DX: M17.0 Bilateral primary osteoarthritis of knee (principal)
CPT/HCPCS: 20610; 99213

== ENCOUNTER → 2025-04-28 13:31 | Outpatient (BNV) | payer OTHER, SELFPAY | PROVIDERS: Visit Provider Radiology Diagnostic Radiology | DX: M17.0 Bilateral primary osteoarthritis of knee (principal); M22.2X1 Patellofemoral disorders, right knee | CPT/HCPCS: 73562 ==